=== PATIENT | female | born 1965 | race Caucasian/White ===

== ENCOUNTER → 2022-07-13 | Outpatient (CLI) | payer OTHER ==
--- NOTE | 2022-07-15 19:23 | US ---
EXAMINATION TYPE: US arterial LE single level DATE OF EXAM: 07/13/2022 10:20 AM CLINICAL HISTORY: R09.89 Other specific symptoms and signs involving the circulatory. History of hype rtension and hyperlipidemia and diabetes. Doppler Waveforms: Right: Biphasic Left: Biphasic Pulse Volume Recording: Pressure Gradients: Right Brachial Pressure: Left Brachial Pressure: Ankle-Brachial Indices: Right: 1.26 Left: 1.23 Toe Brachial Indices: Right: 0.77 Left: 0.84 IMPRESSION: Normal study.
== END | disposition home or self-care (01) ==
LOC: RADMAMWWP 09:01
PROVIDERS: ATTEND Internal Medicine
DX: R92.8 Other abnormal and inconclusive findings on diagnostic imaging of breast (principal); I10 Essential (primary) hypertension; E78.5 Hyperlipidemia, unspecified; E11.9 Type 2 diabetes mellitus without complications; R09.89 Other specified symptoms and signs involving the circulatory and respiratory systems
CPT/HCPCS: 77066; 93922

== ENCOUNTER → 2022-08-02 | Outpatient (CLI) | payer OTHER ==
--- NOTE | 2022-08-02 10:23 | MM ---
Reason for Exam: Additional evaluation requested from prior study. Last screening mammogram was performed less than 1 month ago. Patient History: Menarche at age 12. First Full-Term at age 15. Left ovary removed at age 41. Right ovary removed at age 41. Hysterectomy at age 41. Risk Values: Sahara 5 year model risk: 1.0%. NCI Lifetime model risk: 5.6%. Prior Study Comparison: 09/19/2019 Left Diagnostic Mammogram, [facility]. 04/09/2021 Left Diagnostic Mammogram, [facility]. 07/13/2022 Bilateral MG diagnostic mammo w CAD MIGUEL, [facility]. Tissue Density: Left: The breast tissue is heterogeneously dense. This may lower the sensitivity of mammography. Findings: Analyzed By CAD. No distinct new lesion persists on additional views. Overall Assessment: Benign, BI-RAD 2 Management: Screening Mammogram of both breasts in 1 year. Return to routine follow-up. Results were given to the patient verbally at the time of exam. Electronically signed and approved by: Harjit Holm M.D.
== END | disposition home or self-care (01) ==
LOC: RADMAMWWP 09:42
PROVIDERS: ATTEND Internal Medicine
DX: R92.8 Other abnormal and inconclusive findings on diagnostic imaging of breast (principal)
CPT/HCPCS: 77065; G0279; 77061

== ENCOUNTER → 2022-09-24 | Outpatient (CLI) | payer OTHER ==
[2022-09-25 05:26] LABS: Appearance,Urine Turbid (Clear); Bilirubin,Urine Negative (Negative); Blood,Urine Negative (Negative); Color,Urine Yellow (Yellow); Ketones,Urine Negative (Negative); Nitrite,Urine Negative (Negative); Specific Gravity,Urine 1.019 (1.001-1.030); Urobilinogen,Urine 0.2
[2022-09-25 05:29] LABS: Bacteria,Urine 4+ (None Seen)
== END | disposition home or self-care (01) ==
LOC: LABWHC1 10:05
PROVIDERS: ATTEND Internal Medicine
DX: R19.5 Other fecal abnormalities (principal); R30.0 Dysuria
CPT/HCPCS: 81001; 87086

== ENCOUNTER 2022-11-27 21:10 | Emergency (ER) | payer MEDICARE, OTHER ==
[2022-11-27 21:20] VITALS: RESP 18
[2022-11-27 22:18] LABS: Basophils % (A) 0 %; Eosinophils # (A) 0.3 k/uL (0-0.7); Eosinophils % (A) 2 %; HCT 37.3 % (34.0-46.0); HGB 13.2 gm/dL (11.4-16.0); Lymphocytes # (A) 2.8 k/uL (1.0-4.8); Lymphocytes % (A) 27 %; MCH 30.9 pg (25.0-35.0); MCHC 35.3 g/dL (31.0-37.0); MCV 87.4 fL (80.0-100.0); Mean Platelet Volume 7.2; Monocytes # (A) 0.5 k/uL (0-1.0); Monocytes % (A) 5 %; Neutrophils # (A) 6.9 k/uL (1.3-7.7); Neutrophils % (A) 65 %; Platelet Count 244 k/uL (150-450); RBC 4.27 m/uL (3.80-5.40); WBC 10.6 k/uL (3.8-10.6)
[2022-11-27 22:29] LABS: ALT 24 U/L (4-34); AST 22 U/L (14-36); African American GFR (CKD) 62 (>60 ml/min/1.73 sqM); Albumin 2.9 g/dL (3.5-5.0); Alkaline Phosphatase 93 U/L (38-126); Anion Gap 7 mmol/L; Blood Urea Nitrogen 36 mg/dL (7-17); Calcium 8.6 mg/dL (8.4-10.2); Carbon Dioxide 25 mmol/L (22-30); Chloride 107 mmol/L (98-107); Glucose 221 mg/dL (74-99); Lipase 235 U/L (23-300); Non-African American GFR(CKD) 54 (>60 ml/min/1.73 sqM); Potassium 3.5 mmol/L (3.5-5.1); Sodium 139 mmol/L (137-145); Total Bilirubin 0.2 mg/dL (0.2-1.3)
[2022-11-27 22:35] LABS: INR 0.9 (<1.2); Prothrombin Time 9.3 sec (9.0-12.0)
[2022-11-27 22:40] LABS: Partial Thromboplastin Time 21.8 sec (22.0-30.0)
--- NOTE | 2022-11-27 23:14 | CT ---
EXAMINATION TYPE: CT abdomen pelvis w con CT DLP: 1008 mGycm, Automated exposure control for dose reduction was used. DATE OF EXAM: 11/27/2022 11:04 PM COMPARISON: none CLINICAL INDICATION:Female, 57 years old with history of GI bleed, RLQ pain; TECHNIQUE: Axial CT of the abdomen and pelvis. Sagittal and coronal reformats were created on a [employer] workstation. Contrast used: 80 cc Isovue-300 Oral contrast used: (none if empty) FINDINGS: LOWER CHEST: Left lower lung partially calcified granuloma measuring up to 10 mm. ABDOMEN LIVER: Diffusely hypoattenuating parenchyma. GALLBLADDER AND BILE DUCTS: The gallbladder is surgically absent. PANCREAS: Unremarkable. SPLEEN: Unremarkable. ADRENAL GLANDS: Unremarkable. KIDNEYS AND URETERS: No evidence of hydronephrosis or renal calculus. The ureters are unremarkable. PELVIS BLADDER: Unremarkable REPRODUCTIVE: The uterus is surgically absent. ABDOMEN & PELVIS STOMACH AND BOWEL: No evidence of bowel obstruction. No evidence for gastrointestinal hemorrhage. Mil d subcutaneous mucosal fat deposition within the singh of the colon. Scattered colonic diverticula. T he appendix is normal. Second portion duodenal diverticulum. PERITONEUM/RETROPERITONEUM: No evidence of pneumoperitoneum or free fluid. There is a nonspecific mis ty mesentery. VASCULATURE: No evidence of aortic aneurysm. MUSCULOSKELETAL: No acute osseous abnormalities, left hip fixation changes. Hardware appears intact. There is a Schmorl's node in the superior endplate of L3. No other significant normally within these spine. There is mild degeneration changes of the spine. LYMPH NODES: No gross evidence for lymphadenopathy. SOFT TISSUE/ABDOMINAL WALL: Unremarkable IMPRESSION: 1. No evidence for gastrointestinal hemorrhage . 2. No evidence for obstructive uropathy. No renal calculus. 3. The appendix is normal. 4. Hepatic steatosis. 5. Left lower lobe calcified granuloma.
--- NOTE | 2022-11-28 00:24 | ED ---
General Adult HPI - General Chief complaint: GI Bleed Stated complaint: Blood in stools Time Seen by Provider: 11/27/22 21:21 Source: patient Mode of arrival: ambulatory Limitations: no limitations - History of Present Illness Initial comments: This is a 57-year-old female with a past medical history including diabetes, hypertension presents emergency department for GI bleed. The patient stated over the last 2 days she had noted brown to bright red blood in the toilet bowl every time she has a bowel movement. The patient also stated that she had righ t-sided abdominal pain and "gurgling" all day. The patient stated that the last and is happened she had a hemorrhoid but stated that the pain was more severe so she came to the emergency department for evaluation. The patient denied any lightheadedness or dizziness. The patient was otherwise resting in bed comfortably. - Related Data Home Medications Medication Instructions Recorded Confirmed Cetirizine HCl 10 mg PO DAILY 11/27/22 11/27/22 DULoxetine HCL [Cymbalta] 60 mg PO DAILY 11/27/22 11/27/22 Denosumab [Prolia] 60 mg SQ Q180D 11/27/22 11/27/22 Ergocalciferol [Vitamin D2 (1250 1,250 mcg PO WE 11/27/22 11/27/22 Mcg = 44491 Iu)] Famotidine [Pepcid] 20 mg PO DAILY 11/27/22 11/27/22 Fluticasone Nasal [place] [Flonase 2 spr EA NOSTRIL BID 11/27/22 11/27/22 Nasal [place]] Furosemide [Lasix] 40 mg PO DAILY 11/27/22 11/27/22 Insulin Aspart [NovoLOG Flexpen] 45 units SQ AC-TID 11/27/22 11/27/22 Insulin Aspart [NovoLOG Flexpen] See Protocol SQ AC-TID 11/27/22 11/27/22 Insulin Detemir [Levemir Flextouch] 34 unit SQ HS 11/27/22 11/27/22 Mirabegron [Myrbetriq] 25 mg PO DAILY 11/27/22 11/27/22 Mometasone/Formoterol [Dulera 200 2 puff INHALATION RT-BID 11/27/22 11/27/22 Mcg-5 Mcg Inhaler] Omeprazole Magnesium [PriLOSEC OTC] 20 mg PO DAILY 11/27/22 11/27/22 Potassium Chloride ER [K-Dur 20] 20 meq PO DAILY 11/27/22 11/27/22 Rosuvastatin Calcium 5 mg PO DAILY 11/27/22 11/27/22 glipiZIDE 5 mg PO BID 11/27/22 11/27/22 lisinopriL [Zestril] 5 mg PO DAILY 11/27/22 11/27/22 metFORMIN HCL 1,000 mg PO BID 11/27/22 11/27/22 traZODone HCL [Desyrel] 50 mg PO HS 11/27/22 11/27/22 Allergies Allergy/AdvReac Type Severity Reaction Status Date / Time coconut Allergy Swelling Verified 11/27/22 22:19 fish oil Allergy Anaphylaxis Verified 11/27/22 22:19 iodine Allergy Anaphylaxis Verified 11/27/22 22:19 lavender (Lavandula Allergy Dyspnea Verified 11/27/22 22:19 angustifolia) Review of Systems ROS Statement: Those systems with pertinent positive or pertinent negative responses have been documented in the HPI. ROS Other: All systems not noted in ROS Statement are negative. Past Medical History Past Medical History: Asthma, COPD, Diabetes Mellitus, Hypertension, Renal Disease History of Any Multi-Drug Resistant Organisms: None Reported Past Surgical History: Section, Cholecystectomy, Hysterectomy Past Psychological History: No Psychological Hx Reported Smoking Status: Never smoker Past Alcohol Use History: None Reported Past Drug Use History: None Reported General Exam Limitations: no limitations General appearance: alert, in no apparent distress Head exam: Present: atraumatic, normocephalic, normal inspection Eye exam: Present: normal appearance, PERRL Pupils: Present: normal accommodation ENT exam: Present: normal exam, normal oropharynx, mucous membranes moist Neck exam: Present: normal inspection, full ROM Respiratory exam: Present: normal lung sounds bilaterally. Absent: respiratory distress, wheezes Cardiovascular Exam: Present: regular rate, normal rhythm, normal heart sounds GI/Abdominal exam: Present: soft, normal bowel sounds. Absent: tenderness Rectal exam: Present: normal rectal tone, heme (+) stool, hemorrhoids, other (Exam was performed with RAISA Weber as millinery salesperson) Extremities exam: Present: normal inspection, full ROM Back exam: Present: normal inspection, full ROM Neurological exam: Present: alert, oriented X3, CN II-XII intact Psychiatric exam: Present: normal affect, normal mood Skin exam: Present: warm, dry Course Vital Signs 11/27/22 11/28/22 21:14 00:36 Temperature 98.7 F 98.6 F Pulse Rate 112 H 91 Respiratory 18 18 Rate Blood Pressure 169/94 151/93 O2 Sat by Pulse 98 97 Oximetry Medical Decision Making - Medical Decision Making Was pt. sent in by a medical professional or institution (, STEF, HIGH VALUE ASSOCIATE, urgent care, hospital, or senior care...) When possible be specific @ -No Did you speak to anyone other than the patient for history (EMS, parent, family, police, friend...)? What history was obtained from this source @ -No Did you review nursing and triage notes (agree or disagree)? Why? @ -I reviewed and agree with nursing and triage notes Were old charts reviewed (outside hosp., previous admission, EMS record, old EKG, old radiological studies, urgent care reports/EKG's, senior care records)? Report findings @ -No old charts were reviewed Differential Diagnosis (chest pain, altered mental status, abdominal pain women, abdominal pain men, vaginal bleeding, weakness, fever, dyspnea, syncope, headache, dizziness, GI bleed, back pain, seizure, CVA, palpatations, mental health)? @ -GI bleed, internal hemorrhoids, external hemorrhoids, gastroenteritis EKG interpreted by me (3pts min.). @ -None X-rays interpreted by me (1pt min.). @ -None done CT interpreted by me (1pt min.). @ -CT abdomen and pelvis with IV contrast was obtained and was interpreted by myself showing no evidence for GI hemorrhage. There was no evidence for obstructive uropathy. The appendix is normal. There was left lower lobe calcified granuloma. U/S interpreted by me (1pt. min.). @ -None done What testing was considered but not performed or refused? (CT, X-rays, U/S, labs)? Why? @ -None What meds were considered but not given or refused? Why? @ -None Did you discuss the management of the patient with other professionals (professionals i.e. STEF Dowell, HIGH VALUE ASSOCIATE, lab, RT, psych nurse, medical social worker, tile layer supervisor, teacher, prison officer, casework manager)? Give summary @ -No Was smoking cessation discussed for >3mins.? @ -No Was critical care preformed (if so, how long)? @ -No Were there social determinants of health that impacted care today? How? (Homelessness, low income, unemployed, alcoholism, drug addiction, transportation, low edu. Level, literacy, decrease access to med. care, long term, rehab)? @ -No Was there de-escalation of care discussed even if they declined (Discuss DNR or withdrawal of care, Hospice)? DNR status @ -No What co-morbidities impacted this encounter? (DM, HTN, Smoking, COPD, CAD, Cancer, CVA, ARF, Chemo, Hep., AIDS, mental health diagnosis, sleep apnea, morbid obesity)? @ -Diabetes, hypertension Was patient admitted / discharged? Hospital course, mention meds given and route, prescriptions, significant lab abnormalities, going to OR and other pertinent info. @ -The patient was seen and evaluated emergency department. Physical exam, the patient was resting in bed comfortably without any acute distress. Vital signs admission were stable. All laboratory workup was within normal limits and the patient had normal hemoglobin. Computed tomography scan was also negative and occult blood was positive. On rectal exam there was a hemorrhoid noted at the 12 o'clock position. The patient continued to remain stable and likely had a stable lower GI bleed likely secondary to hemorrhoid. The patient was stable for discharge home to follow-up as an outpatient. The patient was advised report back to the emergency Department in case of worsening rectal bleeding as well as any lightheadedness or dizziness. The patient was understanding of these instructions and all her questions were answered. The patient was discharged home in stable condition. Undiagnosed new problem with uncertain prognosis? @ -No Drug Therapy requiring intensive monitoring for toxicity (Heparin, Nitro, Insulin, Cardizem)? @ -No Were any procedures done? @ -No Diagnosis/symptom? @ -Lower GI bleed, stable likely secondary to hemorrhoid Acute, or Chronic, or Acute on Chronic? @ -Acute Uncomplicated (without systemic symptoms) or Complicated (systemic symptoms)? @ -Uncomplicated Side effects of treatment? @ -No Exacerbation, Progression, or Severe Exacerbation? @ -No Poses a threat to life or bodily function? How? (Chest pain, [place], HI, pneumonia, PE, COPD, DKA, ARF, appy, cholecystitis, CVA, Diverticulitis, Homicidal, Suicidal, threat to staff... and all critical care pts) @ -No - Lab Data Result diagrams: 11/27/22 22:02 11/27/22 22:02 Lab Results 11/27/22 11/27/22 11/27/22 Range/Units 22:02 22:02 22:02 WBC 10.6 (3.8-10.6) k/uL RBC 4.27 (3.80-5.40) m/uL Hgb 13.2 (11.4-16.0) gm/dL Hct 37.3 (34.0-46.0) % MCV 87.4 (80.0-100.0) fL MCH 30.9 (25.0-35.0) pg MCHC 35.3 (31.0-37.0) g/dL RDW 13.0 (11.5-15.5) % Plt Count 244 (150-450) k/uL MPV 7.2 Neutrophils % 65 % Lymphocytes % 27 % Monocytes % 5 % Eosinophils % 2 % Basophils % 0 % Neutrophils # 6.9 (1.3-7.7) k/uL Lymphocytes # 2.8 (1.0-4.8) k/uL Monocytes # 0.5 (0-1.0) k/uL Eosinophils # 0.3 (0-0.7) k/uL Basophils # 0.0 (0-0.2) k/uL PT 9.3 (9.0-12.0) sec INR 0.9 (<1.2) APTT 21.8 L (22.0-30.0) sec Sodium 139 (137-145) mmol/L Potassium 3.5 (3.5-5.1) mmol/L Chloride 107 (98-107) mmol/L Carbon Dioxide 25 (22-30) mmol/L Anion Gap 7 mmol/L BUN 36 H (7-17) mg/dL Creatinine 1.13 H (0.52-1.04) mg/dL Est GFR (CKD-EPI)AfAm 62 (>60 ml/min/1.73 sqM) Est GFR (CKD-EPI)NonAf 54 (>60 ml/min/1.73 sqM) Glucose 221 H (74-99) mg/dL Calcium 8.6 (8.4-10.2) mg/dL Magnesium 2.0 (1.6-2.3) mg/dL Total Bilirubin 0.2 (0.2-1.3) mg/dL AST 22 (14-36) U/L ALT 24 (4-34) U/L Alkaline Phosphatase 93 (38-126) U/L Total Protein 6.0 L (6.3-8.2) g/dL Albumin 2.9 L (3.5-5.0) g/dL Lipase 235 (23-300) U/L Stool Occult Blood (Negative) Blood Type Blood Type Confirm Blood Type Recheck Bld Type Recheck Status Antibody Screen Spec Expiration Date 11/27/22 11/27/22 11/27/22 Range/Units 22:02 22:07 22:43 WBC (3.8-10.6) k/uL RBC (3.80-5.40) m/uL Hgb (11.4-16.0) gm/dL Hct (34.0-46.0) % MCV (80.0-100.0) fL MCH (25.0-35.0) pg MCHC (31.0-37.0) g/dL RDW (11.5-15.5) % Plt Count (150-450) k/uL MPV Neutrophils % % Lymphocytes % % Monocytes % % Eosinophils % % Basophils % % Neutrophils # (1.3-7.7) k/uL Lymphocytes # (1.0-4.8) k/uL Monocytes # (0-1.0) k/uL Eosinophils # (0-0.7) k/uL Basophils # (0-0.2) k/uL PT (9.0-12.0) sec INR (<1.2) APTT (22.0-30.0) sec Sodium (137-145) mmol/L Potassium (3.5-5.1) mmol/L Chloride (98-107) mmol/L Carbon Dioxide (22-30) mmol/L Anion Gap mmol/L BUN (7-17) mg/dL Creatinine (0.52-1.04) mg/dL Est GFR (CKD-EPI)AfAm (>60 ml/min/1.73 sqM) Est GFR (CKD-EPI)NonAf (>60 ml/min/1.73 sqM) Glucose (74-99) mg/dL Calcium (8.4-10.2) mg/dL Magnesium (1.6-2.3) mg/dL Total Bilirubin (0.2-1.3) mg/dL AST (14-36) U/L ALT (4-34) U/L Alkaline Phosphatase (38-126) U/L Total Protein (6.3-8.2) g/dL Albumin (3.5-5.0) g/dL Lipase (23-300) U/L Stool Occult Blood Positive H (Negative) Blood Type A Positive Blood Type Confirm A Positive Blood Type Recheck No Previous Record Bld Type Recheck Status CABO Indicated Antibody Screen NEGATIVE Spec Expiration Date 11/30/20222301 Disposition Clinical Impression: GI bleed Disposition: HOME SELF-CARE Condition: Stable Instructions (If sedation given, give patient instructions): Gastrointestinal Bleeding (ED) Is patient prescribed a controlled substance at d/c from ED?: No Referrals: Vernon Loza MD [Primary Care Provider] - 1-2 days Madisyn Yanes MD [STAFF PHYSICIAN] - 1-2 days Time of Disposition: 23:50
[2022-11-28 00:45] VITALS: BP 151/93; PULSE 91; TEMP 98.6
== END 2022-11-28 00:36 | disposition home or self-care (01) ==
LOC: EC 21:10
DX: K92.2 Gastrointestinal hemorrhage, unspecified (principal); E11.9 Type 2 diabetes mellitus without complications; I10 Essential (primary) hypertension; J44.9 Chronic obstructive pulmonary disease, unspecified; Z90.49 Acquired absence of other specified parts of digestive tract; Z79.4 Long term (current) use of insulin; Z79.84 Long term (current) use of oral hypoglycemic drugs; Z79.51 Long term (current) use of inhaled steroids; Z79.899 Other long term (current) drug therapy; Z91.018 Allergy to other foods; Z91.013 Allergy to seafood; Z91.041 Radiographic dye allergy status; Z91.048 Other nonmedicinal substance allergy status
CPT/HCPCS: 36415; 86900; 86901; 80053; 83690; 83735; 85025; 85610; 85730; 86850; 82272; 74177; 99285; Q9967

== ENCOUNTER → 2022-12-20 | Outpatient (CLI) | payer MEDICARE, OTHER ==
[2022-12-20 13:39] LABS: African American GFR (CKD) 51 (>60 ml/min/1.73 sqM); Blood Urea Nitrogen 40 mg/dL (7-17); Non-African American GFR(CKD) 44 (>60 ml/min/1.73 sqM)
--- NOTE | 2022-12-21 00:05 | CT ---
EXAMINATION TYPE: CT urogram wo/w con DATE OF EXAM: 12/20/2022 COMPARISON: 11/27/2022 INDICATION: hematuria DLP: 1618.5 mGycm, Automated exposure control for dose reduction was used. CONTRAST: 80cc mL of Isovue 300. Study performed without Oral Contrast TECHNIQUE: Axial images were obtained from above the diaphragm to the pubic rami in the axial plane a t 5 mm thick sections. Reconstructed images are reviewed on the computer in the coronal plane. FINDINGS: Limited CT sections are obtained the lung bases. There is a stable calcification posterior left lung base. Lung bases are clear. CT ABDOMEN: Liver: Normal Spleen: Normal Pancreas: Normal Adrenal glands: The adrenal glands are normal. Gallbladder: Surgically absent Kidneys: No masses are evident. No hydronephrosis is present. No cysts are present. Delayed images were obtained through the kidneys, which remain unremarkable. In the coronal plane with some punctat e cortical medullary junction calcifications without obstruction. Couple of upper pole nonobstructing cortical medullary junctions may be present. CT urogram: Left ureter has mild prominence. Lesser prominence of the right distal ureter is present. Hydronephrosis is not felt present. Limited evaluation of the urinary bladder is unremarkable. Aorta: Normal Inferior vena cava: Normal. CT PELVIS: There may be some mid mesenteric stranding. Scattered small lymph nodes in the mesentery. Loops of bowel within the abdomen and pelvis are normal. This study is without oral contrast limi ting bowel evaluation. Appendix: Normal as visualized. Urinary bladder: Normal. Genitourinary structures: Uterus and ovaries are not identified. Osseous structures: No suspicious lytic or sclerotic lesions. IMPRESSION: 1. No suspicious acute abnormality renal collecting system. There is some mild nonspecific prominenc e of the left ureter. 2. Suspected punctate nonobstructing renal stones bilaterally greater on the right. Consider medullar y sponge kidney within the differential.
== END | disposition home or self-care (01) ==
LOC: RADCTMAIN 12:54
PROVIDERS: ATTEND Urology
DX: R31.0 Gross hematuria (principal); N28.89 Other specified disorders of kidney and ureter
CPT/HCPCS: 82565; 84520; 74178; 36415; 74400; Q9967

== ENCOUNTER 2023-02-23 10:07 | Day surgery (SDC) | payer MEDICARE, OTHER ==
[2023-02-21 16:02] VITALS: BMI 28.2
[~2023-02-23 10:07] MED LIST: LACTATED RINGERS 1,000 ML IV SCH
[2023-02-23 10:37] VITALS: TEMP 96.9
[2023-02-23 10:45] LABS: Glucose,Whole Blood 104 mg/dL (70-110)
[2023-02-23] MEDS ORDERED: LIDOCAINE 1% INJ 10MG/ML (20 ML MDV) ONE (11:00)
[2023-02-23] MEDS ORDERED: PROPOFOL 10 MG/ML 20 ML VIAL IV ONE (11:00)
--- NOTE | 2023-02-23 11:11 | P.PCN ---
Date of Procedure: 02/23/23 Procedure(s) Performed: BRIEF HISTORY: Patient is a 57-year-old pleasant white female scheduled for an elective colonoscopy as a part of evaluation of intermittent rectal bleeding for the last 2 months duration. PROCEDURE PERFORMED: Colonoscopy. PREOPERATIVE DIAGNOSIS: Rectal bleeding of 2 months duration. IV sedation per Anesthesia. PROCEDURE: After informed consent was obtained, the patient, was brought into the endoscopy unit. IV sedation was administered by Anesthesia under continuous monitoring. Digital rectal examination was normal. Initially the Olympus CF-160 flexible video colonoscope was then inserted in the rectum, gradually advanced into the cecum without any difficulty. Careful examination was performed as the scope was gradually being withdrawn. Ileocecal valve and the appendiceal orifice were visualized and appeared normal. Prep was excellent. Mucosa of the cecum, ascending colon, transverse colon, descending colon, sigmoid colon, and rectum appeared normal. Retroflexion was performed in the rectum and large internal hemorrhoids were seen. The patient tolerated the procedure well. IMPRESSION: Normal-appearing colon from rectum to cecum with no evidence of colorectal neoplasia . Large internal hemorrhoids RECOMMENDATIONS: Findings of this examination were discussed with the patient as well as a family.. She was advised to be a high-fiber diet and take fiber supplements on a regular basis. Avoid straining and constipation. Recommend repeat screening colonoscopy in 10 years.
[2023-02-23 11:29] VITALS: BP 141/88
[2023-02-23 11:56] VITALS: PULSE 88; RESP 14
== END 2023-02-23 11:46 | disposition home or self-care (01) ==
LOC: ORWHC2ENDO 10:07
PROVIDERS: ATTEND Internal Medicine Gastroenterology
DX: K64.8 Other hemorrhoids (principal); K62.5 Hemorrhage of anus and rectum; I10 Essential (primary) hypertension; J44.9 Chronic obstructive pulmonary disease, unspecified; E11.9 Type 2 diabetes mellitus without complications; N28.9 Disorder of kidney and ureter, unspecified; Z79.811 Long term (current) use of aromatase inhibitors; Z79.4 Long term (current) use of insulin; Z79.84 Long term (current) use of oral hypoglycemic drugs; Z79.899 Other long term (current) drug therapy; Z90.49 Acquired absence of other specified parts of digestive tract; Z90.710 Acquired absence of both cervix and uterus; Z98.890 Other specified postprocedural states
CPT/HCPCS: J2001; J2704; G0121; 45378

== ENCOUNTER → 2023-03-15 | Outpatient (CLI) | payer MEDICARE, OTHER ==
--- NOTE | 2023-03-15 18:39 | BD ---
EXAMINATION TYPE: Axial Bone Density DATE OF EXAM: 03/15/2023 CLINICAL HISTORY: 57 years old Female. ICD-10 CODE: M81.0 age related osteoporosis Height: 5 ft 3 in Weight: 152 FRAX RISK QUESTIONS: Alcohol (3 or more units per day): no Family History (Parent hip fracture): no Glucocorticoids (More than 3mos): no (Ex: prednisone, prednisolone, methylprednisolone, dexamethasone, and hydrocortisone). History of Fracture in Adulthood: yes Secondary Osteoporosis: 1. Type 1 Diabetes: type 2 2. Hyperthyroidism: no 3. Menopause before 45: no 4. Malnutrition: no 5. Chronic liver disease: no Rheumatoid Arthritis: no Current Tobacco Use: no RISK FACTORS HISTORY OF: Surgery to Spine/Hip(right/left)/Wrist (right/left): left hip When: 2019 Family History of Osteoporosis: no Active: yes Diet low in dairy products/other sources of calcium: no Postmenopausal woman: yes Take estrogen and/or progesterone medications: no Lost more than 2 inches in height since high school: no Frequent falls: no Poor Health: fair Hyperparathyroidism: no Adrenal Insufficiency: no MEDICATIONS: Additional Medications: bladder meds, metformin, glipizide, insulin, Lipitor, Additional History: EXAM MEASUREMENTS: Bone mineral densitometry was performed using the [employer] System. Bone mineral density as measured about the Lumbar spine is: ----- L1-L4(G/cm2): 1.288 T Score Values are as follows: ----- L1: 0.9 ----- L2: 0.8 ----- L3: 1.1 ----- L4: 0.8 ----- L1-L4: 0.9 Z Score Values are as follows: ----- L1: 1.8 ----- L2: 1.7 ----- L3: 2.0 ----- L4: 1.7 ----- L1-L4: 1.9 baseline Bone mineral density about the R hip (g/cm2): 0.697 T Score values are as follows: -----R Neck: -2.5 -----R Total: -1.4 Z Score values are as follows: -----R Neck: -1.4 -----R Total: -0.7 baseline FRAX%s: The graph provided illustrates a 18.6 % chance for a major osteoporotic fx and a 3.6 % chance for the hips probability for fx in 10 years time. IMPRESSION: Osteoporosis (T Score less than -2.5). There is increased fracture risk and therapy is usually indicated based on age. Re-Screen 1-2 years. NOTE: T-SCORE=SD OF THE YOUNG ADULT MEAN.
== END | disposition home or self-care (01) ==
LOC: RADBDWWP 12:09
PROVIDERS: ATTEND Internal Medicine
DX: M81.0 Age-related osteoporosis without current pathological fracture (principal)
CPT/HCPCS: 77080

== ENCOUNTER 2023-11-04 06:28 | Emergency (ER) | payer OTHER ==
[2023-11-04 06:35] VITALS: TEMP 97.9
--- NOTE | 2023-11-04 06:55 | ED ---
Female Urogenital HPI - General Chief complaint: Urogenital Stated complaint: Urinary Retention Time Seen by Provider: 11/04/23 06:29 Source: patient, RN notes reviewed Mode of arrival: EMS Limitations: no limitations - History of Present Illness Initial comments: This is a 58-year-old female who presents to the emergency department for concerns of a UTI. States that starting yesterday she felt like she was developing fevers, lower abdominal pain/pressure and burning with urination. Symptoms have since persisted into today. She is now starting to feel nauseous and states that she was unable to sleep last night. Reports a history of frequent UTIs, most recently a couple of months ago. She has been having trouble urinating as a result and states that she has not been able to go in about 5 hours. However, after arriving here she was able to produce some urine. MD Complaint: dysuria - Related Data Home Medications Medication Instructions Recorded Confirmed Cetirizine HCl 10 mg PO DAILY 11/27/22 02/21/23 DULoxetine HCL [Cymbalta] 60 mg PO DAILY 11/27/22 02/21/23 Ergocalciferol [Vitamin D2 (1250 1,250 mcg PO WE 11/27/22 02/21/23 Mcg = 77214 Iu)] Fluticasone Nasal [place] [Flonase 2 spr EA NOSTRIL BID 11/27/22 02/21/23 Nasal [place]] Furosemide [Lasix] 40 mg PO DIRECTED PRN 11/27/22 02/21/23 Insulin Aspart [NovoLOG Flexpen] 45 units SQ AC-TID 11/27/22 02/21/23 Insulin Detemir [Levemir Flextouch] 34 unit SQ HS 11/27/22 02/21/23 Mirabegron [Myrbetriq] 25 mg PO DAILY 11/27/22 02/21/23 Mometasone/Formoterol [Dulera 200 2 puff INHALATION RT-BID 11/27/22 02/21/23 Mcg-5 Mcg Inhaler] Omeprazole Magnesium [PriLOSEC OTC] 20 mg PO DAILY 11/27/22 02/21/23 Rosuvastatin Calcium 5 mg PO DAILY 11/27/22 02/21/23 glipiZIDE 5 mg PO BID 11/27/22 02/21/23 lisinopriL [Zestril] 5 mg PO DAILY 11/27/22 02/21/23 metFORMIN HCL 1,000 mg PO BID 11/27/22 02/21/23 traZODone HCL [Desyrel] 50 mg PO HS 11/27/22 02/21/23 Previous Rx's Medication Instructions Recorded Ondansetron Odt [Zofran Odt] 4 mg PO Q8HR PRN #15 tab 11/04/23 cefUROXime axetiL [Ceftin] 500 mg PO BID 7 Days #14 tab 11/04/23 Allergies Allergy/AdvReac Type Severity Reaction Status Date / Time coconut Allergy Swelling Verified 11/04/23 06:35 fish oil Allergy Anaphylaxis Verified 11/04/23 06:35 iodine Allergy Anaphylaxis Verified 11/04/23 06:35 Latex, Natural Rubber Allergy Rash/Hives Verified 11/04/23 06:35 lavender (Lavandula Allergy Dyspnea Verified 11/04/23 06:35 angustifolia) Review of Systems ROS Statement: Those systems with pertinent positive or pertinent negative responses have been documented in the HPI. ROS Other: All systems not noted in ROS Statement are negative. Past Medical History Past Medical History: Atrial Fibrillation, Asthma, Cancer, COPD, Diabetes Melli tus, Hyperlipidemia, Hypertension, Osteoarthritis (OA), Renal Disease History of Any Multi-Drug Resistant Organisms: None Reported Past Surgical History: Section, Cholecystectomy, Hysterectomy Past Anesthesia/Blood Transfusion Reactions: No Reported Reaction Past Psychological History: No Psychological Hx Reported Smoking Status: Never smoker Past Alcohol Use History: None Reported Past Drug Use History: None Reported General Exam Limitations: no limitations General appearance: alert, in no apparent distress Head exam: Present: atraumatic, normocephalic, normal inspection Respiratory exam: Present: normal lung sounds bilaterally. Absent: respiratory distress, wheezes, rales, rhonchi, stridor Cardiovascular Exam: Present: regular rate, normal rhythm, normal heart sounds. Absent: systolic murmur, diastolic murmur, rubs, gallop, clicks GI/Abdominal exam: Present: soft, tenderness (Suprapubic), normal bowel sounds. Absent: distended Neurological exam: Present: alert, oriented X3, CN II-XII intact Psychiatric exam: Present: normal affect, normal mood Skin exam: Present: warm, dry, intact, normal color. Absent: rash Course Vital Signs 11/04/23 11/04/23 06:31 09:02 Temperature 97.9 F Pulse Rate 93 82 Respiratory 16 17 Rate Blood Pressure 182/98 152/99 O2 Sat by Pulse 97 97 Oximetry Medical Decision Making - Medical Decision Making This is a 58 year old female who presents to the emergency department for burning with urination and urinary retention. Was pt. sent in by a medical professional or institution? @ -No Did you speak to anyone other than the patient for history? @ -No Did you review nursing and triage notes? @ -Yes, and I agree, it is accurate with regards to the patient's symptoms. Were old charts reviewed? @ -No Differential Diagnosis? @ -Differential Dysuria: UTI, injury, STI, yeast infection, BV, this is not meant to be an all-inclusive list. EKG interpreted by me (3pts min.)? @ -EKG interpreted by me demonstrating the following: X-rays interpreted by me (1pt min.)? @ -Not obtained CT interpreted by me (1pt min.)? @ -Not obtained U/S interpreted by me (1pt. min.)? @ -Not obtained What testing was considered but not performed? (CT, X-rays, U/S, labs)? Why? @ -None What meds were considered but not given? Why? @ -None Did you discuss the management of the patient with other professionals? @ -No Did you reconcile home meds? @ -No Was smoking cessation discussed for >3mins.? @ -No Was critical care preformed (if so, how long)? @ -No Were there social determinants of health that impacted care today? How? (Homelessness, low income, unemployed, alcoholism, drug addiction, transportation, low edu. Level, literacy, decrease access to med. care, intermediate, rehab)? @ -No Was there de-escalation of care discussed even if they declined? (Discuss DNR or withdrawal of care, Hospice)? @ -No What co-morbidities impacted this encounter? (DM, HTN, Smoking, COPD, CAD, Cancer, CVA, Hep., AIDS, mental health diagnosis, sleep apnea, morbid obesity)? @ -DM, renal disease Was patient admitted / discharged? @ -Discharged. Patient was concerned about urinary retention on arrival. Bladder scan performed demonstrating 150 mL of urine. However after that she was able to urinate without difficulty. Lab work demonstrates signs of dehydration and was otherwise unremarkable. Urinalysis consistent with infection. Urine sent for culture. Patient treated with IV fluids, Zofran, and morphine with improvement in symptoms. 1 g of ceftriaxone administered in the emergency department. Prescription for cefuroxime and Zofran provided for further management of the UTI. Advised follow-up with her primary care provider for reevaluation. Case discussed with ED attending Dr. Wick. Undiagnosed new problem with uncertain prognosis? @ -None Drug Therapy requiring intensive monitoring for toxicity (Heparin, Nitro, Insulin, Cardizem)? @ -None Were any procedures done? @ -None Diagnosis/symptom? @ -UTI Acute, or Chronic, or Acute on Chronic? @ -Acute Uncomplicated (without systemic symptoms) or Complicated (systemic symptoms)? @ -Uncomplicated Side effects of treatment? @ -None Exacerbation, Progression, or Severe Exacerbation] @ -Not applicable Poses a threat to life or bodily function? @ -No Return precautions reviewed in depth, the patient is instructed to return to the emergency department with any new, worsening, or concerning symptoms. Patient verbalized understanding. - Lab Data Result diagrams: 11/04/23 07:02 11/04/23 07:02 Lab Results 11/04/23 11/04/23 11/04/23 Range/Units 06:57 07:02 07:02 WBC 9.9 (3.8-10.6) k/uL RBC 4.15 (3.80-5.40) m/uL Hgb 12.5 (11.4-16.0) gm/dL Hct 37.1 (34.0-46.0) % MCV 89.4 (80.0-100.0) fL MCH 30.1 (25.0-35.0) pg MCHC 33.7 (31.0-37.0) g/dL RDW 13.3 (11.5-15.5) % Plt Count 288 (150-450) k/uL MPV 7.0 Neutrophils % 66 % Lymphocytes % 21 % Monocytes % 6 % Eosinophils % 6 % Basophils % 0 % Neutrophils # 6.6 (1.3-7.7) k/uL Lymphocytes # 2.0 (1.0-4.8) k/uL Monocytes # 0.6 (0-1.0) k/uL Eosinophils # 0.6 (0-0.7) k/uL Basophils # 0.0 (0-0.2) k/uL Sodium 141 (137-145) mmol/L Potassium 4.3 (3.5-5.1) mmol/L Chloride 113 H (98-107) mmol/L Carbon Dioxide 25 (22-30) mmol/L Anion Gap 3 mmol/L BUN 47 H (7-17) mg/dL Creatinine 1.73 H (0.52-1.04) mg/dL Est GFR (CKD-EPI)AfAm 37 (>60 ml/min/1.73 sqM) Est GFR (CKD-EPI)NonAf 32 (>60 ml/min/1.73 sqM) Glucose 199 H (74-99) mg/dL Plasma Lactic Acid Vikash (0.7-2.0) mmol/L Calcium 8.6 (8.4-10.2) mg/dL Total Bilirubin 0.3 (0.2-1.3) mg/dL AST 19 (14-36) U/L ALT 16 (4-34) U/L Alkaline Phosphatase 88 (38-126) U/L Total Protein 5.6 L (6.3-8.2) g/dL Albumin 3.0 L (3.5-5.0) g/dL Urine Color Colorless Urine Appearance Cloudy H (Clear) Urine pH 6.5 (5.0-8.0) Ur Specific [place] 1.015 (1.001-1.035) Urine Protein 3+ H (Negative) Urine Glucose (UA) 2+ H (Negative) Urine Ketones Negative (Negative) Urine Blood Small H (Negative) Urine Nitrite Negative (Negative) Urine Bilirubin Negative (Negative) Urine Urobilinogen <2.0 (<2.0) mg/dL Ur Leukocyte Esterase Moderate H (Negative) Urine RBC 8 H (0-5) /hpf Urine WBC 72 H (0-5) /hpf Ur Squamous Epith Cells 4 (0-4) /hpf Urine Bacteria Many H (None) /hpf Urine Mucus Rare H (None) /hpf 11/04/23 Range/Units 07:02 WBC (3.8-10.6) k/uL RBC (3.80-5.40) m/uL Hgb (11.4-16.0) gm/dL Hct (34.0-46.0) % MCV (80.0-100.0) fL MCH (25.0-35.0) pg MCHC (31.0-37.0) g/dL RDW (11.5-15.5) % Plt Count (150-450) k/uL MPV Neutrophils % % Lymphocytes % % Monocytes % % Eosinophils % % Basophils % % Neutrophils # (1.3-7.7) k/uL Lymphocytes # (1.0-4.8) k/uL Monocytes # (0-1.0) k/uL Eosinophils # (0-0.7) k/uL Basophils # (0-0.2) k/uL Sodium (137-145) mmol/L Potassium (3.5-5.1) mmol/L Chloride (98-107) mmol/L Carbon Dioxide (22-30) mmol/L Anion Gap mmol/L BUN (7-17) mg/dL Creatinine (0.52-1.04) mg/dL Est GFR (CKD-EPI)AfAm (>60 ml/min/1.73 sqM) Est GFR (CKD-EPI)NonAf (>60 ml/min/1.73 sqM) Glucose (74-99) mg/dL Plasma Lactic Acid Vikash 1.2 (0.7-2.0) mmol/L Calcium (8.4-10.2) mg/dL Total Bilirubin (0.2-1.3) mg/dL AST (14-36) U/L ALT (4-34) U/L Alkaline Phosphatase (38-126) U/L Total Protein (6.3-8.2) g/dL Albumin (3.5-5.0) g/dL Urine Color Urine Appearance (Clear) Urine pH (5.0-8.0) Ur Specific [place] (1.001-1.035) Urine Protein (Negative) Urine Glucose (UA) (Negative) Urine Ketones (Negative) Urine Blood (Negative) Urine Nitrite (Negative) Urine Bilirubin (Negative) Urine Urobilinogen (<2.0) mg/dL Ur Leukocyte Esterase (Negative) Urine RBC (0-5) /hpf Urine WBC (0-5) /hpf Ur Squamous Epith Cells (0-4) /hpf Urine Bacteria (None) /hpf Urine Mucus (None) /hpf Disposition Clinical Impression: Urinary tract infection Disposition: HOME SELF-CARE Instructions (If sedation given, give patient instructions): Urinary Tract Infection in Women (ED) Additional Instructions: Return to the emergency department with any new, worsening, or concerning symptoms. Take the antibiotic as prescribed for 7 days. Take the Zofran up to every 8 hours as needed for nausea and vomiting. Take Tylenol as needed for pain relief. Make sure you get plenty of rest and drink plenty of fluids. Follow up with your primary care provider in 1-2 days. Prescriptions: cefUROXime axetiL [Ceftin] 500 mg PO BID 7 Days #14 tab Ondansetron Odt [Zofran Odt] 4 mg PO Q8HR PRN #15 tab PRN Reason: Nausea And Vomiting Is patient prescribed a controlled substance at d/c from ED?: No Referrals: Vernon Loza MD [Primary Care Provider] - 1-2 days Time of Disposition: 08:52
[2023-11-04 07:19] LABS: Basophils % (A) 0 %; Eosinophils # (A) 0.6 k/uL (0-0.7); Eosinophils % (A) 6 %; HCT 37.1 % (34.0-46.0); HGB 12.5 gm/dL (11.4-16.0); Lymphocytes % (A) 21 %; MCH 30.1 pg (25.0-35.0); MCHC 33.7 g/dL (31.0-37.0); MCV 89.4 fL (80.0-100.0); Monocytes # (A) 0.6 k/uL (0-1.0); Monocytes % (A) 6 %; Neutrophils # (A) 6.6 k/uL (1.3-7.7); Neutrophils % (A) 66 %; Platelet Count 288 k/uL (150-450); RBC 4.15 m/uL (3.80-5.40); RDW 13.3 % (11.5-15.5); WBC 9.9 k/uL (3.8-10.6)
[2023-11-04] MEDS: ONDANSETRON 4 MG/2 ML VIAL IVP STA (07:19)
[2023-11-04] MEDS: SODIUM CHLORIDE 0.9% 1,000 ML IV STA (07:20)
[2023-11-04] MEDS: PHENAZOPYRIDINE 200 MG TAB PO STA (07:20)
[2023-11-04] MEDS: MORPHINE SULFATE 2 MG/ML SYRINGE IVP STA (07:20)
[2023-11-04 07:29] LABS: Appearance,Urine Cloudy (Clear); Bacteria,Urine Many /hpf; Bilirubin,Urine Negative (Negative); Blood,Urine Small (Negative); Color,Urine Colorless; Glucose,Urine (UA) 2+ (Negative); Ketones,Urine Negative (Negative); Leukocyte Esterase,Urine Moderate (Negative); Mucus,Urine Rare /hpf; Nitrite,Urine Negative (Negative); PH, Urine 6.5 (5.0-8.0); Protein,Urine 3+ (Negative); RBC,Urine 8 /hpf (0-5); Specific Gravity,Urine 1.015 (1.001-1.035); Squamous Epithelial Cell,Urine 4 /hpf (0-4); Urobilinogen,Urine <2.0 mg/dL (<2.0); WBC,Urine 72 /hpf (0-5)
[2023-11-04 07:55] LABS: ALT 16 U/L (4-34); AST 19 U/L (14-36); African American GFR (CKD) 37 (>60 ml/min/1.73 sqM); Alkaline Phosphatase 88 U/L (38-126); Anion Gap 3 mmol/L; Blood Urea Nitrogen 47 mg/dL (7-17); Calcium 8.6 mg/dL (8.4-10.2); Carbon Dioxide 25 mmol/L (22-30); Chloride 113 mmol/L (98-107); Glucose 199 mg/dL (74-99); Non-African American GFR(CKD) 32 (>60 ml/min/1.73 sqM); Potassium 4.3 mmol/L (3.5-5.1); Sodium 141 mmol/L (137-145); Total Bilirubin 0.3 mg/dL (0.2-1.3); Total Protein 5.6 g/dL (6.3-8.2)
[2023-11-04] MEDS: cefTRIAXone IN SWFI 1,000 MG/10 ML SYRINGE IVP STA (08:31)
[2023-11-04] MEDS: HYDROmorphone 0.5 MG/0.5 ML SYRINGE IVP STA (08:31)
[2023-11-04] MEDS: ONDANSETRON 4 MG ODT STARTER PACK 2 TAB BTL PO STA (08:32)
[2023-11-04] MEDS: ACET/COD 300 MG/30 MG STARTER PACK 6 TAB BTL PO STA (08:32)
[2023-11-04 09:02] VITALS: BP 152/99; PULSE 82; RESP 17
== END 2023-11-04 09:02 | disposition home or self-care (01) ==
LOC: EC 06:28
DX: N39.0 Urinary tract infection, site not specified (principal); E11.9 Type 2 diabetes mellitus without complications; Z91.041 Radiographic dye allergy status; Z91.040 Latex allergy status; Z88.8 Allergy status to other drugs, medicaments and biological substances; Z91.013 Allergy to seafood
CPT/HCPCS: 51798; 36415; 80053; 83605; 85025; 81001; 87086; 99284; 96374; 96375 ×3; 96361 ×2; J2405; J0696; J2270; S0119; J1170

== ENCOUNTER → 2024-02-17 | Outpatient (CLI) | payer MEDICARE, OTHER ==
[2024-02-17 15:36] LABS: ALT 16 U/L (8-44); AST 16 U/L (13-35); Albumin 2.9 g/dL (3.8-4.9); Albumin/Globulin Ratio 1.26 Ratio (1.60-3.17); Alkaline Phosphatase 95 U/L (41-126); BUN/Creat Ratio 23.32 Ratio (12.00-20.00); Blood Urea Nitrogen 51.3 mg/dL (9.0-27.0); Calcium 7.9 mg/dL (8.7-10.3); Carbon Dioxide 21.6 mmol/L (21.6-31.8); Chloride 115 mmol/L (96-109); Chol/HDL Ratio 5.83 Ratio; Globulin 2.3 g/dL (1.6-3.3); Glucose 126 mg/dL (70-110); LDL Cholesterol,Calculated 115.4 mg/dL (0.0-131.0); Potassium 4.1 mmol/L (3.5-5.5); Sodium 146 mmol/L (135-145); Total Bilirubin <0.2 mg/dL (0.3-1.2); Total Protein 5.2 g/dL (6.2-8.2)
[2024-02-17 20:09] LABS: HIV 2 AB Non-Reactive (Non-Reactive); HIV AB P24 Non-Reactive (Non-Reactive); HIV P24 AG Non-Reactive (Non-Reactive)
[2024-02-17 20:44] LABS: Microalbumin Creatinine Ratio >5641 mg/g Cr (0-30)
== END | disposition home or self-care (01) ==
LOC: LABWHC1 10:58
PROVIDERS: ATTEND Registered Nurse
DX: Z11.59 Encounter for screening for other viral diseases (principal); Z11.4 Encounter for screening for human immunodeficiency virus [HIV]; E11.42 Type 2 diabetes mellitus with diabetic polyneuropathy; E11.59 Type 2 diabetes mellitus with other circulatory complications; E11.319 Type 2 diabetes mellitus with unspecified diabetic retinopathy without macular edema; E11.22 Type 2 diabetes mellitus with diabetic chronic kidney disease; E11.69 Type 2 diabetes mellitus with other specified complication; N18.31 Chronic kidney disease, stage 3a; E78.5 Hyperlipidemia, unspecified; Z79.4 Long term (current) use of insulin
CPT/HCPCS: 36415; 80053; 80061; 82043; 82570; 83036; 83970; 86803; 87390

== ENCOUNTER → 2024-06-19 | Outpatient (CLI) | payer MEDICARE, OTHER ==
[2024-06-19 10:30] LABS: Creatinine,Urine Random 57.7 mg/dL
[2024-06-19 10:31] LABS: Appearance,Urine Clear (Clear); Bilirubin,Urine Negative (Negative); Blood,Urine Negative (Negative); Color,Urine Colorless; Glucose,Urine (UA) 3+ (Negative); Ketones,Urine Negative (Negative); Leukocyte Esterase,Urine Trace (Negative); Mucus,Urine Rare /hpf; Nitrite,Urine Negative (Negative); Protein,Urine 3+ (Negative); RBC,Urine 1 /hpf (0-5); Specific Gravity,Urine 1.015 (1.001-1.035); Squamous Epithelial Cell,Urine 3 /hpf (0-4); Triple Phosphate Crystal,Urine Occasional /hpf; Urobilinogen,Urine <2.0 mg/dL (<2.0); WBC,Urine 18 /hpf (0-5)
[2024-06-19 14:53] LABS: Basophils # (A) 0.07 X 10*3/uL (0.00-0.10); Basophils % (A) 0.7 %; Eosinophils # (A) 0.29 X 10*3/uL (0.04-0.35); HCT 37.6 % (37.2-46.3); HGB 12.4 g/dL (12.0-15.0); Lymphocytes # (A) 2.42 X 10*3/uL (0.90-5.00); Lymphocytes % (A) 24.7 %; MCH 29.5 pg (27.0-32.0); MCV 89.5 FL (80.0-97.0); Mean Platelet Volume 10.8 FL (9.5-12.2); Monocytes # (A) 0.49 X 10*3/uL (0.20-1.00); NRBC Per 100 WBC 0 X 10*3/uL (0.00-0.01); Neutrophils # (A) 6.48 X 10*3/uL (1.80-7.70); Neutrophils % (A) 66.1 %; Platelet Count 228 X 10*3/uL (140-440)
[2024-06-19 15:57] LABS: % Iron Saturation 32.55 (12.00-45.00); Albumin 3.2 g/dL (3.8-4.9); BUN/Creat Ratio 18.51 Ratio (12.00-20.00); Blood Urea Nitrogen 64.8 mg/dL (9.0-27.0); Calcium 8.5 mg/dL (8.7-10.3); Chloride 116 mmol/L (96-109); Glucose 172 mg/dL (70-110); Iron 83 UG/DL (50-170); Phosphorus 4.9 mg/dL (2.4-5.1); Potassium 4.2 mmol/L (3.5-5.5); Sodium 143 mmol/L (135-145); Total Iron Binding Capacity 255 UG/DL (228-460); Uric Acid 5.2 mg/dL (2.9-7.7)
[2024-06-19 16:16] LABS: Hepatitis A Antibody IgM Nonreactive (Nonreactive); Hepatitis B Core IgM Nonreactive (Nonreactive); Hepatitis B Surface Antigen Nonreactive (Nonreactive); Hepatitis C IgG Antibody Nonreactive (Nonreactive)
[2024-06-19 18:42] LABS: Urine Creatinine 62.4 mg/dL (28.0-217.0)
[2024-06-19 19:07] LABS: Microalbumin Creatinine Ratio >7051 mg/g Cr (0-30)
[2024-06-19 19:44] LABS: Anti-DNA, DS unit <1.0 IU/mL; DNA Double-Stranded Negative (Negative)
[2024-06-20 12:16] LABS: Protein, Total 5.7 g/dL (6.2-8.2)
[2024-06-20 12:28] LABS: Free Kappa Lt Chain Qnt, Serum 8.42 mg/dL (0.33-1.94); Free Lambda Lt Chain Qnt, Seru 8.65 mg/dL (0.57-2.63)
[2024-06-20 13:44] LABS: C-ANCA <1:20 Titer (<1:20)
== END | disposition home or self-care (01) ==
LOC: LABWHC1 09:00
PROVIDERS: ATTEND Internal Medicine Nephrology
DX: E55.9 Vitamin D deficiency, unspecified (principal); N18.4 Chronic kidney disease, stage 4 (severe); N25.81 Secondary hyperparathyroidism of renal origin; M10.9 Gout, unspecified; N39.0 Urinary tract infection, site not specified; D63.1 Anemia in chronic kidney disease; R80.9 Proteinuria, unspecified
CPT/HCPCS: 36415; 80048; 80074; 81001; 82040; 82043; 82306; 82570; 82728; 83516; 83540; 83550; 83735; 83883; 83970; 84100; 84156; 84165; 84550; 85025; 86038; 86160; 86162; 86225; 86255; 86334; 86335

== ENCOUNTER → 2024-07-02 | Outpatient (CLI) | payer MEDICARE, OTHER ==
[2024-07-02 16:41] LABS: BUN/Creat Ratio 15.37 Ratio (12.00-20.00); Blood Urea Nitrogen 58.4 mg/dL (9.0-27.0); Calcium 8.3 mg/dL (8.7-10.3); Carbon Dioxide 20.6 mmol/L (21.6-31.8); Chloride 113 mmol/L (96-109); Glucose 56 mg/dL (70-110); Potassium 4.6 mmol/L (3.5-5.5); Sodium 145 mmol/L (135-145)
[2024-07-02 21:55] LABS: Total Volume 24 Hour,Urine 1850 mL
== END | disposition home or self-care (01) ==
LOC: LABWHC1 12:33
PROVIDERS: ATTEND Internal Medicine Nephrology
DX: N18.4 Chronic kidney disease, stage 4 (severe) (principal); D63.1 Anemia in chronic kidney disease; N39.0 Urinary tract infection, site not specified; M10.9 Gout, unspecified; N25.81 Secondary hyperparathyroidism of renal origin; E55.9 Vitamin D deficiency, unspecified; R80.9 Proteinuria, unspecified
CPT/HCPCS: 36415; 80048; 81050; 84156

== ENCOUNTER → 2024-07-26 | Outpatient (CLI) | payer MEDICARE, OTHER ==
[2024-07-27 03:21] LABS: Blood Urea Nitrogen 54.8 mg/dL (9.0-27.0); Calcium 8.1 mg/dL (8.7-10.3); Carbon Dioxide 23.8 mmol/L (21.6-31.8); Chloride 112 mmol/L (96-109); Glucose 46 mg/dL (70-110); Potassium 4.6 mmol/L (3.5-5.5); Sodium 146 mmol/L (135-145)
== END | disposition home or self-care (01) ==
LOC: LABWHC1 15:54
PROVIDERS: ATTEND Internal Medicine Nephrology
DX: N18.4 Chronic kidney disease, stage 4 (severe) (principal)
CPT/HCPCS: 36415; 80048

== ENCOUNTER → 2024-08-17 | Outpatient (CLI) | payer MEDICARE, OTHER ==
[2024-08-18 01:36] LABS: Total Volume 24 Hour,Urine 1900 mL
[2024-08-18 01:37] LABS: Total Protein 24 Hour,Urine >11400.0 mg/24Hr (0.0-165.0)
== END | disposition home or self-care (01) ==
LOC: LABWHC1 08:42
PROVIDERS: ATTEND Internal Medicine
DX: R80.9 Proteinuria, unspecified (principal)
CPT/HCPCS: 81050; 84156

== ENCOUNTER 2024-08-23 06:07 | Day surgery (SDC) | payer MEDICARE, OTHER ==
[2024-08-21 11:02] VITALS: BMI 27.8
[2024-08-23] MEDS: IV FLUID CONTINUATION 1,000 ML IV ONE (06:30)
[2024-08-23 06:44] LABS: Basophils # (A) 0.05 10*3/uL (0.00-0.10); Basophils % (A) 0.5 %; Eosinophils # (A) 0.68 10*3/uL (0.04-0.35); Eosinophils % (A) 6.5 %; HCT 31.4 % (37.2-46.3); HGB 10.6 g/dL (12.0-15.0); Lymphocytes # (A) 2.27 10*3/uL (0.90-5.00); Lymphocytes % (A) 21.6 %; MCH 29.9 pg (27.0-32.0); MCHC 33.8 g/dL (32.0-37.0); MCV 88.7 fL (80.0-97.0); Mean Platelet Volume 9.6 fL (9.5-12.2); Monocytes # (A) 0.68 10*3/uL (0.20-1.00); Monocytes % (A) 6.5 %; Neutrophils # (A) 6.78 10*3/uL (1.80-7.70); Neutrophils % (A) 64.4 %; Platelet Count 175 10*3/uL (140-440); RBC 3.54 10*6/uL (4.10-5.20); RDW 12.3 % (11.5-14.5); WBC 10.51 10*3/uL (4.50-10.00)
[2024-08-23 07:00] VITALS: TEMP 97.2
[2024-08-23 07:02] LABS: African American GFR (CKD) 14 (>60 ml/min/1.73 sqM); Anion Gap 7 mmol/L; Blood Urea Nitrogen 58 mg/dL (7-17); Calcium 8.1 mg/dL (8.4-10.2); Carbon Dioxide 18 mmol/L (22-30); Chloride 115 mmol/L (98-107); Glucose 199 mg/dL (74-99); Non-African American GFR(CKD) 12 (>60 ml/min/1.73 sqM); Potassium 4.4 mmol/L (3.5-5.1); Sodium 140 mmol/L (137-145)
[2024-08-23] MEDS: MIDAZOLAM 2 MG/2 ML VIAL IVP ONE (07:47)
[2024-08-23] MEDS: fentaNYL (PF) 50 MCG/1 ML VIAL IVP ONE (07:47)
[2024-08-23] MEDS: LIDOCAINE 1% INJ 10MG/ML (20 ML MDV) SQ ONE (07:47)
[2024-08-23] MEDS: HEPARIN SODIUM 1,000 UN/ML (10ML VL) IVP ONE ×2 (07:53)
[2024-08-23] MEDS: ceFAZolin 2 GM in DEXTROSE 5% IN WATER 50 ML IVPB ONE (08:04)
--- NOTE | 2024-08-23 08:11 | P.OP ---
Date of Procedure: 08/23/24 Description of Procedure: DATE OF PROCEDURE: 08/23/2024 PREOPERATIVE DIAGNOSIS: Need for dialysis PROCEDURE: 1. Ultrasound-guided right internal jugular vein access. 2. Placement of a 19 cm tunneled dialysis catheter with fluoroscopic assistance. 3. Moderate conscious sedation times 9 minutes PROCEDURE: The patient was brought to the Clothes Presser placed in supine position. The bilateral necks were prepped and draped in usual sterile fashion. A preprocedure timeout was performed, all parties were in agreement. Using ultrasound the right internal jugular was identified. The site overlying the vein was anesthetized with 1% lidocaine plain and an access needle was used to gain access to the internal jugular vein with return of dark venous, nonpulsatile blood. Seldinger technique was used and a micro-access sheath was placed. Attention was then turned towards the tunnel. The chest wall was a nesthetized with 1% lidocaine plain. A small fawad and the skin was made and the previously flushed catheter was tunneled through the anticipated location. Using Seldinger technique and fluoroscopic assistance, the 35 Glidewire was placed and the tract was serially dilated. The final tear-away sheath was left in place. The inner cannula and wire were removed. The catheter was placed in the tear-away sheath was removed in standard fashion. The catheter showed good positioning was final resting place in the cavoatrial junction. The catheter aspirated and flushed freely. The incision at the neck was reapproximated with interrupted sutures of 4-0 Vicryl. The catheter was sutured in place with 3-0 nylon. Dressings were placed. The patient was allowed to awaken from anesthesia and transferred to recovery in stable condition having tolerated the procedure well. A post procedure chest x-ray is pending Plan - Discharge Summary Discharge Rx Participant: No New Discharge Prescriptions: No Action Insulin Detemir [Levemir Flextouch] 34 unit SQ HS glipiZIDE 5 mg PO BID carvediloL [Coreg] 25 mg PO BID Sodium Bicarbonate Tab 650 mg PO BID Mometasone/Formoterol [Dulera 200 Mcg-5 Mcg Inhaler] 2 puff INHALATION RT-BID PRN PRN Reason: Shortness Of Breath Insulin Aspart [NovoLOG Flexpen] 45 units SQ AC-TID Fluticasone Nasal [place] [Flonase Nasal [place]mage] 2 spr EA NOSTRIL BID PRN PRN Reason: allergies Mirabegron [Myrbetriq] 25 mg PO QAM Rosuvastatin Calcium 5 mg PO QAM Vitamin D(Unknown Dose) 1 dose PO BID Discharge Medication List Fluticasone Nasal [place] [Flonase Nasal [place]] 2 spr EA NOSTRIL BID PRN 11/27/22 [History] Insulin Aspart [NovoLOG Flexpen] 45 units SQ AC-TID 11/27/22 [History] Insulin Detemir [Levemir Flextouch] 34 unit SQ HS 11/27/22 [History] Mirabegron [Myrbetriq] 25 mg PO QAM 11/27/22 [History] Mometasone/Formoterol [Dulera 200 Mcg-5 Mcg Inhaler] 2 puff INHALATION RT-BID PRN 11/27/22 [History] Rosuvastatin Calcium 5 mg PO QAM 11/27/22 [History] glipiZIDE 5 mg PO BID 11/27/22 [History] Sodium Bicarbonate Tab 650 mg PO BID 08/21/24 [History] Vitamin D(Unknown Dose) 1 dose PO BID 08/21/24 [History] carvediloL [Coreg] 25 mg PO BID 08/21/24 [History] Follow up Appointment(s)/Referral(s): Archana Guallpa DO [STAFF PHYSICIAN] - As Needed (Will call for scheduling of loop forearm graft. No need for follow-up until after surgical intervention unless issues or questions) Discharge Disposition: HOME SELF-CARE
--- NOTE | 2024-08-23 08:51 | IR ---
EXAMINATION TYPE: IR cvc insert central tunneled DATE OF EXAM: 08/23/2024 8:15 AM COMPARISON: Pre Operative Images if available both CT/MRI or plain film CLINICAL INDICATION: Female, 59 years old with history of Hemodialysis Catheter 0.4 min FL, 0.204 DAP ; TECHNIQUE: IR cvc insert central tunneled, multiple fluoroscopic images provided for procedure. DAP: 0.204 mGym2 Gycm2 uGym2 cGycm2 or equivalent. FINDINGS: IMPRESSION: 1. Report was generated for administrative purposes only. 2. Please see the operative/procedural note for further details. [facility], , 08/23/2024 8:49 AM
--- NOTE | 2024-08-23 08:55 | XR ---
EXAMINATION TYPE: XR chest 1V portable DATE OF EXAM: 08/23/2024 8:30 AM COMPARISON: None CLINICAL INDICATION: Female, 59 years old with history of catheter placement; [facility] TECHNIQUE: XR chest 1V portable Frontal view of the chest. FINDINGS: Lungs/Pleura: There is no evidence of pleural effusion, focal consolidation, or pneumothorax. Pulmonary vascularity: Unremarkable. Heart/mediastinum: Cardiomediastinal silhouette is unremarkable. Musculoskeletal: No acute osseous pathology. Other findings: None Lines/Tubes: Right internal jugular central venous catheter with distal tip at the cavoatrial junction. IMPRESSION: No acute cardiopulmonary disease/process. [facility], , 08/23/2024 8:53 AM
[2024-08-23 18:04] VITALS: BP 154/69; PULSE 81; RESP 16
== END 2024-08-23 09:03 | disposition home or self-care (01) ==
LOC: OR 06:07
PROVIDERS: ATTEND Surgery
DX: N18.6 End stage renal disease (principal); Z99.2 Dependence on renal dialysis; Z88.5 Allergy status to narcotic agent; Z79.84 Long term (current) use of oral hypoglycemic drugs; Z79.899 Other long term (current) drug therapy
CPT/HCPCS: 80048; 85025; 71045; 36558; C1769; C1750; J2250; J0690; J2003; J1644; J3010; 76937; 77001

== ENCOUNTER 2024-09-13 10:33 | Day surgery (SDC) | payer MEDICARE, OTHER ==
[~2024-09-13 10:33] MED LIST changes: +HYDROmorphone 0.5 MG/0.5 ML SYRINGE IVP PRN; +LIDOCAINE 1% (10MG/ML) FOR IV START INTRADERMA PRN; +fentaNYL (PF) 50 MCG/ML 2 ML AMP IVP PRN
[2024-09-13] MEDS: SODIUM CHLORIDE 0.9% 1,000 ML IV ONE (11:46)
[2024-09-13 12:06] LABS: Glucose,Whole Blood 147 mg/dL (70-110)
[2024-09-13 12:07] VITALS: TEMP 97.9
[2024-09-13] MEDS: DEXAMETHASONE SOD PHOSPHATE 4 MG/ML 1 ML VIAL IV ONE (12:10)
[2024-09-13] MEDS: ONDANSETRON 4 MG/2 ML VIAL IVP ONE (12:10)
[2024-09-13] MEDS: MIDAZOLAM 2 MG/2 ML VIAL IV PRN (12:24)
[2024-09-13] MEDS ORDERED: DEXAMETHASONE SOD PHOSPHATE 4 MG/ML 1 ML VIAL ONE (12:54)
[2024-09-13] MEDS ORDERED: HEPARIN SODIUM,PORCINE 5,000 UNIT/ML 1 ML VIAL ONE (12:54)
[2024-09-13] MEDS ORDERED: MIDAZOLAM 2 MG/2 ML VIAL ONE (12:54)
[2024-09-13] MEDS ORDERED: PROPOFOL 10 MG/ML 20 ML VIAL IV ONE (12:54)
[2024-09-13] MEDS ORDERED: ROPIVACAINE 5 MG/ML 30 ML VIAL ONE (12:54)
[2024-09-13] MEDS ORDERED: fentaNYL (PF) 50 MCG/ML 2 ML AMP ONE (12:54)
[2024-09-13] MEDS: ceFAZolin 2 GM in SODIUM CHLORIDE 0.9% 500 ML 500 ML IRRIGATION ONE (12:58)
[2024-09-13] MEDS: ceFAZolin 2 GM in DEXTROSE 5% IN WATER 50 ML IVPB PRN (12:58)
[2024-09-13] MEDS: HEPARIN SODIUM,PORCINE (1 ML) 2,000 UNIT in SODIUM CHLORIDE 0.9% 500 ML 500 ML IRRIGATION ONE (12:58)
--- NOTE | 2024-09-13 13:51 | P.ANPRN ---
Procedure Note - Anesthesia - Nerve Block Performed Right Infraclavicular Single Time Out Performed: Yes (1223) Date of Procedure: 09/13/24 Indication: Acute Post-Operative Pain (Also for intraop use), Analgesia, Dx/Pain Location, Requested by Surgeon Specifically requested for management of pain by DrPreethi: Archana Guallpa Sedation Type: Sedate with meaningful contact maintained Preparation: Sterile Prep Position: Supine Catheter: None Needle Types: Pajunk Needle Gauge: 21 Ultrasound used to visualize needle placement: Yes Ultrasound used to observe medication spread: Yes Injectate: 0.5% Ropivacaine (see comment for volume) (30 cc + 4mg of decadron) Blood Aspirated: No Pain Paresthesia on Injection Noted: No Resistance on Injection: Normal Image Stored and Saved: Yes Events: Uneventful and Well Tolerated
[2024-09-13 14:51] VITALS: BP 142/85
--- NOTE | 2024-09-13 14:59 | P.OP ---
Date of Procedure: 09/13/24 Description of Procedure: Preoperative diagnosis: Need for dialysis Postoperative diagnosis: Same Procedure: Right upper extremity loop forearm graft Surgeon: Archana Panchal D.O. Anesthesia: Regional block with sedation EBL: 15 mL IV fluids: See operative records Urine output: Not measured Drains: None Complications: None immediately apparent Condition: Stable to PACU Operative indication and findings: Procedure in detail: The patient was taken to the operative suite and placed in supine position. The upper extremity is prepped and draped in usual sterile fashion. A preprocedure timeout was performed, all parties were in agreement. A transverse incision was made just distal to the antecubital fossa and carried down to the level of the brachial artery. It was dissected free circumferentially and proximal and distal Vesseloops were placed. Attention was then turned towards the venous outflow. The most appropriate sized appearing vein was the median cubital vein therefore it was dissected free and encircled proximally and distally. The 4 x 7 propatent graft was then tunneled through a counter incision in the forearm and a subcutaneous tissues. The patient was then heparinized. Flow was occluded through the artery. An arteriotomy was performed and anastomosis to the graft was performed with 6-0 Prolene. The graft was then flushed and the anastomosis was tied. Flow was resumed through the artery. Attention was then turned towards the venous anastomosis. Flow was occluded through the vein and a venotomy was performed. Anastomosis created with 6-0 Prolene. Prior to completion of the anastomosis the graft was flushed as well as the veins themselves. Flow was reinstituted. There remained a palpable pulse proximal and distal to the arterial anastomosis as well as a palpable pulse and strong signal in the wrist. The incision sites were copiously irrigated the subcutaneous tissues were approximately with 3-0 Vicryl in interrupted fashion and the skin was reapproximated with running 4-0 Monocryl. Skin glue was placed. The patient was allowed awaken from anesthesia and transferred to PACU in stable condition having tolerated the procedure well.
[2024-09-13 15:22] VITALS: PULSE 78; RESP 18
== END 2024-09-13 15:49 | disposition home or self-care (01) ==
LOC: OR 10:33
PROVIDERS: ATTEND Surgery
DX: N18.6 End stage renal disease (principal); I48.91 Unspecified atrial fibrillation; J44.89 Other specified chronic obstructive pulmonary disease; K21.9 Gastro-esophageal reflux disease without esophagitis; I12.0 Hypertensive chronic kidney disease with stage 5 chronic kidney disease or end stage renal disease; E11.22 Type 2 diabetes mellitus with diabetic chronic kidney disease; F17.210 Nicotine dependence, cigarettes, uncomplicated; E78.5 Hyperlipidemia, unspecified; F32.A Depression, unspecified; M19.90 Unspecified osteoarthritis, unspecified site; Z99.2 Dependence on renal dialysis; Z91.040 Latex allergy status; Z91.041 Radiographic dye allergy status; Z91.013 Allergy to seafood; Z79.4 Long term (current) use of insulin; Z79.899 Other long term (current) drug therapy
CPT/HCPCS: 64415; 84132; 36830; L8670; J2250; J1644; J1100; J0690; J2405; J3010; J1642; J2795; J2704

== ENCOUNTER → 2024-09-19 | Outpatient (CLI) | payer MEDICARE, OTHER ==
[2024-09-19 15:58] LABS: Basophils # (A) 0.02 X 10*3/uL (0.00-0.10); Basophils % (A) 0.2 %; Eosinophils # (A) 0.47 X 10*3/uL (0.04-0.35); Eosinophils % (A) 4.5 %; HGB 9.8 g/dL (12.0-15.0); Lymphocytes # (A) 2.42 X 10*3/uL (0.90-5.00); Lymphocytes % (A) 23.3 %; MCH 29.2 pg (27.0-32.0); MCHC 31.6 g/dL (32.0-37.0); MCV 92.3 FL (80.0-97.0); Mean Platelet Volume 11.4 FL (9.5-12.2); Monocytes # (A) 0.73 X 10*3/uL (0.20-1.00); NRBC Per 100 WBC 0 X 10*3/uL (0.00-0.01); Neutrophils # (A) 6.66 X 10*3/uL (1.80-7.70); Neutrophils % (A) 64.3 %; Platelet Count 171 X 10*3/uL (140-440); RBC 3.36 X 10*6/uL (4.10-5.20); RDW 12.5 % (11.5-14.5); WBC 10.37 X 10*3/uL (4.50-10.00)
[2024-09-19 16:22] LABS: BUN/Creat Ratio 14.63 Ratio (12.00-20.00); Blood Urea Nitrogen 67.3 mg/dL (9.0-27.0); Calcium 7.8 mg/dL (8.7-10.3); Carbon Dioxide 18.7 mmol/L (21.6-31.8); Chloride 114 mmol/L (96-109); Glucose 186 mg/dL (70-110); Iron 47 UG/DL (50-170); Phosphorus 4.4 mg/dL (2.4-5.1); Potassium 4.5 mmol/L (3.5-5.5); Sodium 144 mmol/L (135-145); Total Iron Binding Capacity 200 UG/DL (228-460); Uric Acid 6.3 mg/dL (2.9-7.7)
[2024-09-19 16:23] LABS: Albumin 2.7 g/dL (3.8-4.9)
[2024-09-19 18:22] LABS: Urine Creatinine 95.5 mg/dL (28.0-217.0)
[2024-09-19 18:59] LABS: Microalbumin Creatinine Ratio >4607 mg/g Cr (0-30)
== END | disposition home or self-care (01) ==
LOC: LABWHC1 08:54
PROVIDERS: ATTEND Nurse Practitioner Family
DX: E55.9 Vitamin D deficiency, unspecified (principal); N25.81 Secondary hyperparathyroidism of renal origin; M10.9 Gout, unspecified; N39.0 Urinary tract infection, site not specified; N18.5 Chronic kidney disease, stage 5; D63.1 Anemia in chronic kidney disease
CPT/HCPCS: 36415; 80048; 82040; 82043; 82306; 82570; 82728; 83540; 83550; 83735; 83970; 84100; 84550; 85025

== ENCOUNTER 2024-09-21 08:25 | Inpatient (IN) | payer MEDICARE, OTHER ==
--- NOTE | 2024-09-21 08:36 | ED ---
Extremity Problem HPI - General Chief complaint: Extremity Problem,Nontraumatic Stated complaint: Right Arm Skin Issue Time Seen by Provider: 09/21/24 08:26 Source: patient, RN notes reviewed Mode of arrival: EMS Limitations: no limitations - History of Present Illness Initial comments: This is a 59-year-old female who presents to the emergency department for concerns of a right arm infection. Patient had surgery for fistula creation with Dr. Panchal on 09/13 in anticipation for dialysis. States that shortly after surgery she noticed increasing pain and swelling. This has since started to get worse and she is concerned about infection. States that in general she is feeling unwell. She has not measured any fevers or chills. Not currently on any antibiotics. She does also have more localized areas of erythema where bandages were previously present, which she attributes to a latex allergy from the bandages themselves. MD Complaint: extremity pain, extremity swelling - Related Data Home Medications Medication Instructions Recorded Confirmed Insulin Aspart [NovoLOG Flexpen] 10 units SQ AC-TID PRN 11/27/22 09/21/24 Mirabegron [Myrbetriq] 25 mg PO DAILY 11/27/22 09/21/24 Rosuvastatin Calcium 5 mg PO DAILY 11/27/22 09/21/24 glipiZIDE 5 mg PO BID 11/27/22 09/21/24 Sodium Bicarbonate Tab 650 mg PO BID 08/21/24 09/21/24 Ergocalciferol [Vitamin D2 (1250 1,250 mcg PO MO 09/11/24 09/21/24 Mcg = 79729 Iu)] Ibandronate Sodium [Boniva] 150 mg PO QMONTHLY 09/21/24 09/21/24 Insulin Glargine,Hum.rec.anlog 15 - 20 units SQ HS 09/21/24 09/21/24 [Lantus Solostar Pen] carvediloL [Coreg] 25 mg PO BID 09/21/24 09/21/24 Allergies Allergy/AdvReac Type Severity Reaction Status Date / Time coconut Allergy Swelling Verified 09/21/24 13:07 fish oil Allergy Anaphylaxis Verified 09/21/24 13:07 iodine Allergy Anaphylaxis Verified 09/21/24 13:07 Latex, Natural Rubber Allergy Rash/Hives Verified 09/21/24 13:07 lavender (Lavandula Allergy Dyspnea Verified 09/21/24 13:07 angustifolia) Review of Systems ROS Statement: Those systems with pertinent positive or pertinent negative responses have been documented in the HPI. ROS Other: All systems not noted in ROS Statement are negative. Past Medical History Past Medical History: Atrial Fibrillation, Asthma, COPD, Diabetes Mellitus, GERD/Reflux, Hearing Disorder / Deafness, Hyperlipidemia, Hypertension, Osteoarthritis (OA), Renal Disease Additional Past Medical History / Comment(s): Pt thinks she has sleep apnea-has not been dx. osteoporosis. stage 5 kidney failure. andrew leg pain with ambulation. has CGM- states blood sugars have been low, hasn't taken any insulin in over one month- advised pt to notified PCP. andrew MORONGO- no hearing aids. History of Any Multi-Drug Resistant Organisms: None Reported Past Surgical History: Section, Cholecystectomy, Hysterectomy, Orthoped ic Surgery Additional Past Surgical History / Comment(s): hx left hip surgery with hardware- 4 pins & plate 4 yrs ago. Past Anesthesia/Blood Transfusion Reactions: No Reported Reaction Smoking Status: Former smoker - Past Family History Father Family Medical History: Diabetes Mellitus Mother Family Medical History: Diabetes Mellitus General Exam Limitations: no limitations General appearance: alert, in no apparent distress Head exam: Present: atraumatic, normocephalic, normal inspection Respiratory exam: Present: normal lung sounds bilaterally. Absent: respiratory distress, wheezes, rales, rhonchi, stridor Cardiovascular Exam: Present: regular rate, normal rhythm Extremities exam: Present: other (Diffuse swelling, tenderness, and warmth to the right upper extremity. Incisions are intact with localized areas of increased erythema. Range of motion limited by pain. 2+ radial pulses) Neurological exam: Present: alert, oriented X3, CN II-XII intact Psychiatric exam: Present: normal affect, normal mood Course Vital Signs 09/21/24 09/21/24 09/21/24 08:32 10:29 12:00 Temperature 97.1 F L Pulse Rate 86 92 95 Respiratory 18 18 18 Rate Blood Pressure 188/91 186/91 187/92 O2 Sat by Pulse 99 98 95 Oximetry Medical Decision Making - Medical Decision Making This is a 59-year-old female who presents to the emergency department for right arm pain. Was pt. sent in by a medical professional or institution? @ -No Did you speak to anyone other than the patient for history? @ -No Did you review nursing and triage notes? @ -Yes, and I agree, it is accurate with regards to the patient's symptoms. Were old charts reviewed? @ -No Differential Diagnosis? @ -Differential Musculoskeletal Muscular strain, contusion, ligament sprain, fracture, arthritis, septic arthritis, bursitis, cellulitis, muscle spasm, nerve compression, DVT, arterial occlusion, herpes zoster, electrolyte abnormality, tumor.... This is not meant to be in all inclusive list EKG interpreted by me (3pts min.)? @ -Not obtained X-rays interpreted by me (1pt min.)? @ -Not obtained CT interpreted by me (1pt min.)? @ -CT scan of the right upper extremity obtained. My interpretation identifies soft tissue swelling. U/S interpreted by me (1pt. min.)? @ -Duplex ultrasound of the right upper extremity obtained. My interpretation identifies no evidence of a DVT. What testing was considered but not performed? (CT, X-rays, U/S, labs)? Why? @ -None What meds were considered but not given? Why? @ -None Did you discuss the management of the patient with other professionals? @ -Yes, Dr. Panchal, who advised applying a ASIA hose to the right upper extremity and starting her on antibiotics if felt to be necessary and she can follow-up outpatient. Dr. Ybarra accepts the patient for admission. Did you reconcile home meds? @ -No Was smoking cessation discussed for >3mins.? @ -No Was critical care preformed (if so, how long)? @ -No Were there social determinants of health that impacted care today? How? (Homelessness, low income, unemployed, alcoholism, drug addiction, transportation, low edu. Level, literacy, decrease access to med. care, senior care, rehab)? @ -No Was there de-escalation of care discussed even if they declined? (Discuss DNR or withdrawal of care, Hospice)? @ -No What co-morbidities impacted this encounter? (DM, HTN, Smoking, COPD, CAD, Cancer, CVA, Hep., AIDS, mental health diagnosis, sleep apnea, morbid obesity)? @ -ESRD, DM Was patient admitted / discharged? @ -Admitted. Lab work demonstrates mild leukocytosis with a white blood cell count of 10.47. CRP mildly elevated at 2.1. CT scan of the right upper extremity demonstrates diffuse soft tissue swelling. There was also a low- density at the loop of the AV shunt and they advised consideration of a gas- forming organism. Duplex ultrasound of the right upper extremity obtained as well revealing no evidence of a DVT. Case discussed with Dr. Panchal regarding CT scan findings. She advised that these are likely expected postoperative changes and a ASIA hose can be applied and the patient can follow up outpatient. She also advised that antibiotics could be started if there was concern for infection. This was discussed with the patient, who advised that her arm is too painful and she did not feel like she could go home. Patient subsequently admitted to medicine for intractable pain of the right upper extremity. She was started on vancomycin and Zosyn for any potential infectious component. Consult placed for vascular surgery given her postoperative state. Case discussed with ED attending Dr. Talbert. Undiagnosed new problem with uncertain prognosis? @ -None Drug Therapy requiring intensive monitoring for toxicity (Heparin, Nitro, Insulin, Cardizem)? @ -None Were any procedures done? @ -None Diagnosis/symptom? @ -Postoperative pain and swelling to right upper extremity, possible cellulitis Acute, or Chronic, or Acute on Chronic? @ -Acute Uncomplicated (without systemic symptoms) or Complicated (systemic symptoms)? @ -Uncomplicated Side effects of treatment? @ -None Exacerbation, Progression, or Severe Exacerbation] @ -Not applicable Poses a threat to life or bodily function? @ -Patient states unable to function due to her pain. - Lab Data Result diagrams: 09/21/24 08:39 09/21/24 08:39 Lab Results 09/21/24 09/21/24 09/21/24 Range/Units 08:39 08:39 08:39 WBC 10.47 H (4.50-10.00) 10*3/uL RBC 3.41 L (4.10-5.20) 10*6/uL Hgb 10.4 L (12.0-15.0) g/dL Hct 30.6 L (37.2-46.3) % MCV 89.7 (80.0-97.0) fL MCH 30.5 (27.0-32.0) pg MCHC 34.0 (32.0-37.0) g/dL Plt Count 182 (140-440) 10*3/uL MPV 9.2 L (9.5-12.2) fL Immature Gran % (Auto) 0.5 % Neutrophils % 67.0 % Lymphocytes % 19.9 % Monocytes % 8.3 % Eosinophils % 3.9 % Basophils % 0.4 % Immature Gran # 0.05 H (0.00-0.04) 10*3/uL Neutrophils # 7.02 (1.80-7.70) 10*3/uL Lymphocytes # 2.08 (0.90-5.00) 10*3/uL Monocytes # 0.87 (0.20-1.00) 10*3/uL Eosinophils # 0.41 H (0.04-0.35) 10*3/uL Basophils # 0.04 (0.00-0.10) 10*3/uL Sodium 140 (137-145) mmol/L Potassium 4.6 (3.5-5.1) mmol/L Chloride 114 H (98-107) mmol/L Carbon Dioxide 18 L (22-30) mmol/L Anion Gap 8 mmol/L BUN 69 H (7-17) mg/dL Creatinine 4.23 H (0.52-1.04) mg/dL Est GFR (CKD-EPI)AfAm 12 (>60 ml/min/1.73 sqM) Est GFR (CKD-EPI)NonAf 11 (>60 ml/min/1.73 sqM) Glucose 156 H (74-99) mg/dL Plasma Lactic Acid Vikash 0.7 (0.7-2.0) mmol/L Calcium 7.8 L (8.4-10.2) mg/dL Total Bilirubin 0.3 (0.2-1.3) mg/dL AST 16 (14-36) U/L ALT 9 (4-34) U/L Alkaline Phosphatase 69 (38-126) U/L C-Reactive Protein 2.1 H (<1.0) mg/dL Total Protein 5.2 L (6.3-8.2) g/dL Albumin 2.6 L (3.5-5.0) g/dL - Radiology Data Radiology results: report reviewed, image reviewed Disposition Clinical Impression: Pain and swelling of right upper extremity, Postoperative pain Disposition: ADMITTED IP TO THIS HOSP
[2024-09-21] MEDS: MORPHINE SULFATE 4 MG/ML SYRINGE IVP STA (08:43)
[2024-09-21 08:53] LABS: Basophils # (A) 0.04 10*3/uL (0.00-0.10); Basophils % (A) 0.4 %; Eosinophils # (A) 0.41 10*3/uL (0.04-0.35); Eosinophils % (A) 3.9 %; HCT 30.6 % (37.2-46.3); HGB 10.4 g/dL (12.0-15.0); Lymphocytes # (A) 2.08 10*3/uL (0.90-5.00); Lymphocytes % (A) 19.9 %; MCH 30.5 pg (27.0-32.0); MCV 89.7 fL (80.0-97.0); Mean Platelet Volume 9.2 fL (9.5-12.2); Monocytes # (A) 0.87 10*3/uL (0.20-1.00); Monocytes % (A) 8.3 %; Neutrophils # (A) 7.02 10*3/uL (1.80-7.70); Platelet Count 182 10*3/uL (140-440); RBC 3.41 10*6/uL (4.10-5.20); RDW 12.3 % (11.5-14.5); WBC 10.47 10*3/uL (4.50-10.00)
[2024-09-21 09:14] LABS: ALT 9 U/L (4-34); AST 16 U/L (14-36); African American GFR (CKD) 12 (>60 ml/min/1.73 sqM); Albumin 2.6 g/dL (3.5-5.0); Alkaline Phosphatase 69 U/L (38-126); Anion Gap 8 mmol/L; Blood Urea Nitrogen 69 mg/dL (7-17); C Reactive Protein 2.1 mg/dL (<1.0); Calcium 7.8 mg/dL (8.4-10.2); Carbon Dioxide 18 mmol/L (22-30); Chloride 114 mmol/L (98-107); Glucose 156 mg/dL (74-99); Non-African American GFR(CKD) 11 (>60 ml/min/1.73 sqM); Potassium 4.6 mmol/L (3.5-5.1); Sodium 140 mmol/L (137-145); Total Bilirubin 0.3 mg/dL (0.2-1.3); Total Protein 5.2 g/dL (6.3-8.2)
--- NOTE | 2024-09-21 09:31 | CT ---
EXAMINATION TYPE: CT upper extremity RT wo con DATE OF EXAM: 09/21/2024 9:11 AM COMPARISON: None. CLINICAL INDICATION: Female, 59 years old with history of Pain and swelling, Pain and swelling. Rash from elbow to wrist TECHNIQUE: Contrast used: mL of , (none if empty) Oral contrast used: (none if empty) Axial images at 3 mm thick sections. Reconstructed images in the coronal and sagittal planes. FINDINGS: Diffuse soft tissue swelling is present within the right forearm. Underlying osseous structures are i ntact. Elbow joint space appears preserved. No joint effusion is evident. Patient's dialysis graft is evident. There is eccentric low density adjacent. This is a -134 Hounsfie ld unit measurement. Consider possible air such as from infection. Example image series 204 image 61. Subcutaneous air is not otherwise evident. Subcutaneous increased density clips from infection or ed sugar is present. No abscess formation is identified. IMPRESSION: 1. DIFFUSE SOFT TISSUE SUPERFICIAL SWELLING. NO UNDERLYING ABSCESS IS IDENTIFIED. EDEMA AND INFECTION COULD BE CONSIDERED. 2. THERE IS SOME LOW DENSITY AT THE LOOP OF THE AV SHUNT. CONSIDER THE POSSIBILITY OF GAS-FORMING ORG ANISM. [facility], , 09/21/2024 9:29 AM
[2024-09-21] MEDS ORDERED: VANCOMYCIN IV PER PHARMACY 1 EACH MISC MISCELLANE PRN (09:47)
--- NOTE | 2024-09-21 10:16 | US ---
EXAMINATION TYPE: US venous doppler duplex UE RT DATE OF EXAM: 09/21/2024 COMPARISON: Same day CT CLINICAL INDICATION: Female, 59 years old with history of Pain and swelling; Pain, swelling right arm TECHNIQUE: Grayscale, color Doppler and spectral Doppler imaging of the upper extremity. SIDE PERFORMED: Right VESSELS IMAGED: IJV Subclavian Vein Axilla Vein Brachial Vein(s) Radial Paired Veins Ulnar Paired Veins Cephalic Vein* Basilic Vein* (*superficial vessels) FINDINGS: Right Arm: Negative for DVT Grayscale, color doppler, spectral doppler imaging performed of the deep veins of the upper extremiti es. IMPRESSION: 1. Right upper extremity ultrasound negative for deep venous thrombosis. [facility], , 09/21/2024 10:14 AM
[2024-09-21] MEDS: PIPERACILLIN-TAZOBACTAM 3.375 GM in SODIUM CHLORIDE 0.9% 100 ML IVPB STA (10:21)
[2024-09-21] MEDS: HYDROmorphone 1 MG/ML 1 ML SYRINGE IVP STA (10:22)
[2024-09-21] MEDS ORDERED: ACETAMINOPHEN TAB 325 MG TAB PO PRN (11:05)
[2024-09-21] MEDS ORDERED: NALOXONE 0.4 MG/ML 1 ML VIAL IV PRN (11:05)
[2024-09-21] MEDS: VANCOMYCIN 1,250 MG in SODIUM CHLORIDE 0.9% 250 ML IVPB ONE (12:06)
[2024-09-21] MEDS: ONDANSETRON 4 MG/2 ML VIAL IVP PRN (12:09)
--- NOTE | 2024-09-21 12:19 | P.HPIM ---
History of Present Illness This is a pleasant 59 years old female with past medical history of multiple medical problems including end-stage renal disease not on dialysis Presents of right arm redness and swelling after she had the procedure for graft creation with Dr. Panchal about 6 to 7 days ago followed by swelling redness warmth and tenderness which was gradually getting worse Denies chest pain or dyspnea. No other specific GI/ symptoms. She makes little urine. No headache dizziness weakness numbness. She denies smoking alcohol or illicit drugs. She is afebrile. Blood pressure elevated 186/91. She has not WBC of 10.4 hemoglobin 10.4 and creatinine 4.2 rest of labs reviewed looks unremarkable. Venous ultrasound of the right upper extremity is negative for DVT but there is diffuse soft tissue swelling with some density at the loop consider gas-forming microorganism Review of Systems Review of systems CONSTITUTIONAL: No fever, no malaise, no fatigue. HEENT: No recent visual problems or hearing problems. Denied any sore throat. CARDIOVASCULAR: No orthopnea, PND, no palpitations, no syncope. PULMONARY: No shortness of breath, no cough, no hemoptysis. GASTROINTESTINAL: No diarrhea, no nausea, no vomiting, no abdominal pain. Normoactive bowel sounds. NEUROLOGICAL: No headaches, no weakness, no numbness. HEMATOLOGICAL: Denies any bleeding or petechiae. GENITOURINARY: Denies any burning micturition, frequency, or urgency. -MUSCULOSKELETAL/RHEUMATOLOGICAL: As above ENDOCRINE: Denies any polyuria or polydipsia. Past Medical History Past Medical History: Atrial Fibrillation, Asthma, COPD, Diabetes Mellitus, GERD/Reflux, Hearing Disorder / Deafness, Hyperlipidemia, Hypertension, Osteoarthritis (OA), Renal Disease Additional Past Medical History / Comment(s): Pt thinks she has sleep apnea-has not been dx. osteoporosis. stage 5 kidney failure. andrew leg pain with ambulation. has CGM- states blood sugars have been low, hasn't taken any insulin in over one month- advised pt to notified PCP. andrew KARLUK- no hearing aids. History of Any Multi-Drug Resistant Organisms: None Reported Past Surgical History: Section, Cholecystectomy, Hysterectomy, Orthopedic Surgery Additional Past Surgical History / Comment(s): hx left hip surgery with hardwa re- 4 pins & plate 4 yrs ago. Past Anesthesia/Blood Transfusion Reactions: No Reported Reaction Smoking Status: Former smoker - Past Family History Father Family Medical History: Diabetes Mellitus Mother Family Medical History: Diabetes Mellitus Medications and Allergies Home Medications Medication Instructions Recorded Confirmed Type Fluticasone Nasal Newell [Flonase 2 spr EA NOSTRIL BID PRN 11/27/22 09/13/24 History Nasal Newell] Insulin Aspart [NovoLOG Flexpen] 45 units SQ AC-TID 11/27/22 09/13/24 History Insulin Detemir [Levemir Flextouch] 34 unit SQ HS 11/27/22 09/13/24 History Mirabegron [Myrbetriq] 25 mg PO QAM 11/27/22 09/13/24 History Mometasone/Formoterol [Dulera 200 2 puff INHALATION RT-BID PRN 11/27/22 09/13/24 History Mcg-5 Mcg Inhaler] Rosuvastatin Calcium 5 mg PO QAM 11/27/22 09/13/24 History glipiZIDE 5 mg PO BID 11/27/22 09/13/24 History Sodium Bicarbonate Tab 650 mg PO BID 08/21/24 09/13/24 History carvediloL [Coreg] 25 mg PO BID 08/21/24 09/13/24 History Ergocalciferol [Vitamin D2 (1250 1,250 mcg PO MO 09/11/24 09/13/24 History Mcg = 74495 Iu)] Allergies Allergy/AdvReac Type Severity Reaction Status Date / Time coconut Allergy Swelling Verified 09/21/24 08:35 fish oil Allergy Anaphylaxis Verified 09/21/24 08:35 iodine Allergy Anaphylaxis Verified 09/21/24 08:35 Latex, Natural Rubber Allergy Rash/Hives Verified 09/21/24 08:35 lavender (Lavandula Allergy Dyspnea Verified 09/21/24 08:35 angustifolia) Physical Exam Vitals: Vital Signs Temp Pulse Resp BP Pulse Ox 09/21/24 12:00 95 18 187/92 95 09/21/24 10:29 92 18 186/91 98 09/21/24 08:32 97.1 F L 86 18 188/91 99 Intake and Output 09/20/24 09/21/24 09/21/24 22:59 06:59 14:59 Other: Weight 72.575 kg GENERAL: The patient is alert and oriented x3, not in any acute distress. Well developed, well nourished. HEENT: Pupils are round and equally reacting to light. EOMI. No scleral icterus. No conjunctival pallor. Normocephalic, atraumatic. No pharyngeal erythema. No thyromegaly. CARDIOVASCULAR: S1 and S2 present. No murmurs, rubs, or gallops. PULMONARY: Chest is clear to auscultation, no wheezing , no crackles. ABDOMEN: Soft, nontender, nondistended, normoactive bowel sounds. No palpable organomegaly. MUSCULOSKELETAL: No joint swelling or deformity. EXTREMITIES: No cyanosis, clubbing, or pedal edema. --Right upper extremity is swollen, slightly warmer slightly tender and there is limitation of flexion of the fingers and elbow. Also there is erythema NEUROLOGICAL: Gross neurological examination did not reveal any focal deficits. SKIN: No rashes. no petechiae. Results CBC & Chem 7: 09/21/24 08:39 09/21/24 08:39 Labs: Abnormal Lab Results - Last 24 Hours (Table) 09/21/24 09/21/24 Range/Units 08:39 08:39 WBC 10.47 H (4.50-10.00) 10*3/uL RBC 3.41 L (4.10-5.20) 10*6/uL Hgb 10.4 L (12.0-15.0) g/dL Hct 30.6 L (37.2-46.3) % MPV 9.2 L (9.5-12.2) fL Immature Gran # 0.05 H (0.00-0.04) 10*3/uL Eosinophils # 0.41 H (0.04-0.35) 10*3/uL Chloride 114 H (98-107) mmol/L Carbon Dioxide 18 L (22-30) mmol/L BUN 69 H (7-17) mg/dL Creatinine 4.23 H (0.52-1.04) mg/dL Glucose 156 H (74-99) mg/dL Calcium 7.8 L (8.4-10.2) mg/dL C-Reactive Protein 2.1 H (<1.0) mg/dL Total Protein 5.2 L (6.3-8.2) g/dL Albumin 2.6 L (3.5-5.0) g/dL Assessment and Plan Assessment: Right upper extremity cellulitis after right upper extremity procedure, AV graft formation by vascular surgery team End-stage renal disease not on dialysis COPD/asthma Diabetes mellitus Hypertension Hyperlipidemia History of osteoarthritis Paroxysmal atrial fibrillation Hearing difficulty Plan: Continue with antibiotic Zosyn and IV vancomycin Vascular surgery team consult Infectious disease team consult Nephrology evaluation for end-stage renal disease Labs and medication were reviewed.. Continue same treatment. Continue with symptomatic treatment. Resume home medication. Monitor lytes and vitals. DVT and GI prophylaxis. Further recommendations depends on the clinical course of the patient DVT prophylaxis: Subcutaneous heparin GI Prophylaxis: Pepcid PT/OT: Pending Prognosis is guarded
--- NOTE | 2024-09-21 14:03 | P.GSCN ---
History of Present Illness Consult date: 09/21/24 Reason for Consult: Postop pain and swelling Requesting physician: Sil Escalante History of present illness: This is a pleasant 59-year-old female with a history of end-stage renal disease requiring hemodialysis. Patient had a right upper extremity loop forearm AV graft created in 09/13/[address] Panchal. Patient came in secondary to pain and swelling. She states that she has discomfort related to the swelling. She had noticed redness when she took off her bandages. Allergic reaction to the adhesive. Patient denies any fevers or chills. Has right IJ tunnel catheter in place. She had a CT of the right upper extremity without contrast that reported diffuse soft tissue superficial swelling, no underlying abscess is identified. Edema and infection could be considered. There is some low-density at the loop of the AV shunt. Consider the possibility of gas-forming organism. Venous duplex without any DVT. Mild leukocytosis. Patient is afebrile. Review of Systems A 14 point review systems was completed all pertinent positives and negatives as stated in the HPI. Past Medical History Past Medical History: Atrial Fibrillation, Asthma, COPD, Diabetes Mellitus, GERD/Reflux, Hearing Disorder / Deafness, Hyperlipidemia, Hypertension, Osteoarthritis (OA), Renal Disease Additional Past Medical History / Comment(s): Pt thinks she has sleep apnea-has not been dx. osteoporosis. stage 5 kidney failure. andrew leg pain with ambulation. has CGM- states blood sugars have been low, hasn't taken any insulin in over one month- advised pt to notified PCP. andrew [place]- no hearing aids. History of Any Multi-Drug Resistant Organisms: None Reported Past Surgical History: Section, Cholecystectomy, Hysterectomy, Orthopedic Surgery Additional Past Surgical History / Comment(s): hx left hip surgery with hardware- 4 pins & plate 4 yrs ago. Past Anesthesia/Blood Transfusion Reactions: No Reported Reaction Smoking Status: Former smoker - Past Family History Father Family Medical History: Diabetes Mellitus Mother Family Medical History: Diabetes Mellitus Medications and Allergies Home Medications Medication Instructions Recorded Confirmed Type Insulin Aspart [NovoLOG Flexpen] 10 units SQ AC-TID PRN 11/27/22 09/21/24 History Mirabegron [Myrbetriq] 25 mg PO DAILY 11/27/22 09/21/24 History Rosuvastatin Calcium 5 mg PO DAILY 11/27/22 09/21/24 History glipiZIDE 5 mg PO BID 11/27/22 09/21/24 History Sodium Bicarbonate Tab 650 mg PO BID 08/21/24 09/21/24 History Ergocalciferol [Vitamin D2 (1250 1,250 mcg PO MO 09/11/24 09/21/24 History Mcg = 97260 Iu)] Ibandronate Sodium [Boniva] 150 mg PO QMONTHLY 09/21/24 09/21/24 History Insulin Glargine,Hum.rec.anlog 15 - 20 units SQ HS 09/21/24 09/21/24 History [Lantus Solostar Pen] carvediloL [Coreg] 25 mg PO BID 09/21/24 09/21/24 History Allergies Allergy/AdvReac Type Severity Reaction Status Date / Time coconut Allergy Swelling Verified 09/21/24 13:07 fish oil Allergy Anaphylaxis Verified 09/21/24 13:07 iodine Allergy Anaphylaxis Verified 09/21/24 13:07 Latex, Natural Rubber Allergy Rash/Hives Verified 09/21/24 13:07 lavender (Lavandula Allergy Dyspnea Verified 09/21/24 13:07 angustifolia) Surgical - Exam Vital Signs Temp Pulse Resp BP Pulse Ox 97.1 F L 86 18 188/91 99 09/21/24 08:32 09/21/24 08:32 09/21/24 08:32 09/21/24 08:32 09/21/24 08:32 General appearance: The patient is alert, oriented, appears in no acute distress. HET: Head is normocephalic and atraumatic. Pupils are equal and reactive. Neck: Supple. Heart: Regular. Lungs: Equal expansion, normal respiratory effort. Abdomen: Soft, nontender, nondistended. Extremities: Right upper extremity swelling. Incisions are well-approximated without any drainage. There is surrounding erythema in the shape of previous adhesive dressing over incisions, dry skin. Slightly palpable graft, audible bruit. Palpable radial pulse. Sensorimotor intact. Full range of motion. Neurological: No focal deficits. Alert and oriented. Results - Labs 09/21/24 08:39 09/21/24 08:39 Abnormal Lab Results - Last 24 Hours (Table) 09/21/24 09/21/24 Range/Units 08:39 08:39 WBC 10.47 H (4.50-10.00) 10*3/uL RBC 3.41 L (4.10-5.20) 10*6/uL Hgb 10.4 L (12.0-15.0) g/dL Hct 30.6 L (37.2-46.3) % MPV 9.2 L (9.5-12.2) fL Immature Gran # 0.05 H (0.00-0.04) 10*3/uL Eosinophils # 0.41 H (0.04-0.35) 10*3/uL Chloride 114 H (98-107) mmol/L Carbon Dioxide 18 L (22-30) mmol/L BUN 69 H (7-17) mg/dL Creatinine 4.23 H (0.52-1.04) mg/dL Glucose 156 H (74-99) mg/dL Calcium 7.8 L (8.4-10.2) mg/dL C-Reactive Protein 2.1 H (<1.0) mg/dL Total Protein 5.2 L (6.3-8.2) g/dL Albumin 2.6 L (3.5-5.0) g/dL Diabetes panel 09/21/24 Range/Units 08:39 Sodium 140 (137-145) mmol/L Potassium 4.6 (3.5-5.1) mmol/L Chloride 114 H (98-107) mmol/L Carbon Dioxide 18 L (22-30) mmol/L BUN 69 H (7-17) mg/dL Creatinine 4.23 H (0.52-1.04) mg/dL Glucose 156 H (74-99) mg/dL Calcium 7.8 L (8.4-10.2) mg/dL AST 16 (14-36) U/L ALT 9 (4-34) U/L Alkaline Phosphatase 69 (38-126) U/L Total Protein 5.2 L (6.3-8.2) g/dL Albumin 2.6 L (3.5-5.0) g/dL Calcium panel 09/21/24 Range/Units 08:39 Calcium 7.8 L (8.4-10.2) mg/dL Albumin 2.6 L (3.5-5.0) g/dL Pituitary panel 09/21/24 Range/Units 08:39 Sodium 140 (137-145) mmol/L Potassium 4.6 (3.5-5.1) mmol/L Chloride 114 H (98-107) mmol/L Carbon Dioxide 18 L (22-30) mmol/L BUN 69 H (7-17) mg/dL Creatinine 4.23 H (0.52-1.04) mg/dL Glucose 156 H (74-99) mg/dL Calcium 7.8 L (8.4-10.2) mg/dL Adrenal panel 09/21/24 Range/Units 08:39 Sodium 140 (137-145) mmol/L Potassium 4.6 (3.5-5.1) mmol/L Chloride 114 H (98-107) mmol/L Carbon Dioxide 18 L (22-30) mmol/L BUN 69 H (7-17) mg/dL Creatinine 4.23 H (0.52-1.04) mg/dL Glucose 156 H (74-99) mg/dL Calcium 7.8 L (8.4-10.2) mg/dL Total Bilirubin 0.3 (0.2-1.3) mg/dL AST 16 (14-36) U/L ALT 9 (4-34) U/L Alkaline Phosphatase 69 (38-126) U/L Total Protein 5.2 L (6.3-8.2) g/dL Albumin 2.6 L (3.5-5.0) g/dL - Imaging Comments: CT right upper extremity independently reviewed by Dr. Panchal and findings are not likely gas-forming but secondary to recent surgical procedure. Assessment and Plan Assessment: 1. Right upper extremity swelling and pain secondary to recent loop forearm graft. To be expected secondary from venous congestion. 2. Right upper extremity allergic contact dermatitis secondary to adhesive, dressing 3. End-stage renal disease requiring hemodialysis Plan: 1. Elevate right upper extremity 2. Apply ASIA hose stocking to right upper extremity for light compression 3. May apply ice pack to right upper extremity for pain 4. Okay for oral pain medication as needed 5. May apply some Vaseline surrounding incision to dry irritated skin 6. There is no indication for any vascular surgical intervention 7. Patient has appointment for ultrasound of the right upper extremity and follow-up 09/26/2024 8. Patient is cleared for discharge from vascular surgery Thank you for this consultation, we will sign off at this time. The impression and plan of care has been dictated as directed. Dr. Brian Hernandez performed a history and examination of this patient, discussed the same with the dictator. I agree with the dictator's note ,documented as a scribe. Any additional findings or plans will be noted.
[2024-09-21 15:20] LABS: Erythrocyte Sedimentation Rate 44 mm/Hr (0-30)
[2024-09-21] MEDS: PIPERACILLIN-TAZOBACTAM 3.375 GM in SODIUM CHLORIDE 0.9% 100 ML IVPB SCH (16:44)
[2024-09-21] MEDS: MORPHINE SULFATE 4 MG/ML SYRINGE IV PRN (16:44)
[2024-09-21] MEDS: carvediloL 12.5 MG TAB PO SCH (18:21)
[2024-09-21] MEDS: glipiZIDE 5 MG TAB PO SCH (20:20)
[2024-09-21] MEDS ORDERED: carvediloL 12.5 MG TAB PO SCH (21:00)
--- NOTE | 2024-09-21 22:49 | P.CONS ---
History of Present Illness - Reason for Consult Consult date: 09/21/24 Cellulitis Requesting physician: Brandan E Sheet - Chief Complaint Right arm pain swelling redness x few days - History of Present Illness Patient is a 59-year-old female with a past medical history significant for diabetes mellitus hypertension hyperlipidemia reflux atrial fibrillation end-stage renal disease and currently started on dialysis, patient did have right IJ tunneled catheter, patient did have right upper extremity loop forearm AV graft created on 09/13/[address] Panchal patient now presenting to the hospital concerning for increasing pain swelling and redness to the right upper extremity that apparently has been getting worse over the last few days patient describing pain to be sharp moderate to severe intensity without radiation with associated swelling and redness denies significant drainage patient denies high-grade fever or chills on presentation to the hospital the patient was afebrile no fever have been called subsequently patient was mildly tachycardic but not hypotensive or hypoxic patient did have a white count of 10.47 did have elevated BUN and creatinine liver enzymes are normal blood culture has been obtained patient also have upper extremities CT diffuse soft tissue superficial swelling no underlying abscesses identified edema and infection could be considered and there was some low-density at the loop of the avulsion consider possible gas-forming organism venous Doppler negative for DVT patient was started on vancomycin and Zosyn infectious disease was consulted for further management of antibiotic therapy Review of Systems Positive point and negatives has been mentioned in the HPI, complete review of systems was performed and all other systems are negative Past Medical History Past Medical History: Atrial Fibrillation, Asthma, COPD, Diabetes Mellitus, GERD/Reflux, Hearing Disorder / Deafness, Hyperlipidemia, Hypertension, Osteoarthritis (OA), Renal Disease Additional Past Medical History / Comment(s): Pt thinks she has sleep apnea-has not been dx. osteoporosis. stage 5 kidney failure. andrew leg pain with ambulation. has CGM- states blood sugars have been low, hasn't taken any insulin in over one month- advised pt to notified PCP. andrew [facility]- no hearing aids. History of Any Multi-Drug Resistant Organisms: None Reported Past Surgical History: Section, Cholecystectomy, Hysterectomy, Orthopedic Surgery Additional Past Surgical History / Comment(s): hx left hip surgery with hardware- 4 pins & plate 4 yrs ago. Past Anesthesia/Blood Transfusion Reactions: No Reported Reaction Smoking Status: Former smoker - Past Family History Father Family Medical History: Diabetes Mellitus Mother Family Medical History: Diabetes Mellitus Medications and Allergies Home Medications Medication Instructions Recorded Confirmed Type Insulin Aspart [NovoLOG Flexpen] 10 units SQ AC-TID PRN 11/27/22 09/21/24 History Mirabegron [Myrbetriq] 25 mg PO DAILY 11/27/22 09/21/24 History Rosuvastatin Calcium 5 mg PO DAILY 11/27/22 09/21/24 History glipiZIDE 5 mg PO BID 11/27/22 09/21/24 History Sodium Bicarbonate Tab 650 mg PO BID 08/21/24 09/21/24 History Ergocalciferol [Vitamin D2 (1250 1,250 mcg PO MO 09/11/24 09/21/24 History Mcg = 26350 Iu)] Ibandronate Sodium [Boniva] 150 mg PO QMONTHLY 09/21/24 09/21/24 History Insulin Glargine,Hum.rec.anlog 15 - 20 units SQ HS 09/21/24 09/21/24 History [Lantus Solostar Pen] carvediloL [Coreg] 25 mg PO BID 09/21/24 09/21/24 History Allergies Allergy/AdvReac Type Severity Reaction Status Date / Time coconut Allergy Swelling Verified 09/21/24 13:07 fish oil Allergy Anaphylaxis Verified 09/21/24 13:07 iodine Allergy Anaphylaxis Verified 09/21/24 13:07 Latex, Natural Rubber Allergy Rash/Hives Verified 09/21/24 13:07 lavender (Lavandula Allergy Dyspnea Verified 09/21/24 13:07 angustifolia) Physical Exam Vitals: Vital Signs Temp Pulse Resp BP Pulse Ox 09/21/24 12:00 95 18 187/92 95 09/21/24 10:29 92 18 186/91 98 09/21/24 08:32 97.1 F L 86 18 188/91 99 Intake and Output 09/21/24 09/21/24 09/21/24 06:59 14:59 22:59 Other: Weight 72.575 kg GENERAL DESCRIPTION: Middle-age female lying in bed, no distress. No tachypnea or accessory muscle of respiration use. HEENT: Shows Pallor , no scleral icterus. Oral mucous membrane is dry. NECK: Trachea central, no thyromegaly. LUNGS: Unlabored breathing. Clear to auscultation anteriorly. No wheeze or crackle. HEART: S1, S2, regular rate and rhythm. No loud murmur ABDOMEN: Soft, no tenderness , guarding or rigidity, no organomegaly EXTREMITIES: Right upper extremity did have swelling diffuse redness no significant drainage was noticed. SKIN: No rash, no masses palpable. NEUROLOGICAL: The patient is awake, alert, oriented x3, mood and affect normal. Results CBC & Chem 7: 09/21/24 08:39 09/21/24 08:39 Labs: Abnormal Lab Results - Last 24 Hours (Table) 09/21/24 09/21/24 Range/Units 08:39 08:39 WBC 10.47 H (4.50-10.00) 10*3/uL RBC 3.41 L (4.10-5.20) 10*6/uL Hgb 10.4 L (12.0-15.0) g/dL Hct 30.6 L (37.2-46.3) % MPV 9.2 L (9.5-12.2) fL Immature Gran # 0.05 H (0.00-0.04) 10*3/uL Eosinophils # 0.41 H (0.04-0.35) 10*3/uL Chloride 114 H (98-107) mmol/L Carbon Dioxide 18 L (22-30) mmol/L BUN 69 H (7-17) mg/dL Creatinine 4.23 H (0.52-1.04) mg/dL Glucose 156 H (74-99) mg/dL Calcium 7.8 L (8.4-10.2) mg/dL C-Reactive Protein 2.1 H (<1.0) mg/dL Total Protein 5.2 L (6.3-8.2) g/dL Albumin 2.6 L (3.5-5.0) g/dL Assessment and Plan (1) Right arm cellulitis Current Visit: Yes Status: Acute Code(s): L03.113 - CELLULITIS OF RIGHT UPPER LIMB SNOMED Code(s): 99150697427037781 (2) Pain and swelling of right upper extremity Current Visit: Yes Status: Acute Code(s): M79.601 - PAIN IN RIGHT ARM; M79.89 - OTHER SPECIFIED SOFT TISSUE DISORDERS SNOMED Code(s): 882544109 Plan: 1patient presented to hospital with right upper extremity pain swelling and redness in this patient who did have significant abnormality seen on the CT with recent right upper extremity AV loop graft placement for dialysis concerning for cellulitis and will need to cover for the gram-positive as well as gram-negative pathogen 2-patient to continue with Zosyn we will switch vancomycin to daptomycin while waiting for the culture to finalize Question concern answered We will follow on clinical condition and cultures to further adjust medication if needed Thank you for this consultation we will follow the patient along with you Dictation was produced using [employer]ync dictation software. please excuse any grammatical, word or spelling errors. Time with Patient: Greater than 30
[2024-09-21 23:05] LABS: Glucose,Whole Blood 201 mg/dL (70-110)
[2024-09-22] MEDS: PANTOPRAZOLE 40 MG/10 ML VIAL IVP SCH (00:16)
[2024-09-22] MEDS: PIPERACILLIN-TAZOBACTAM 3.375 GM in SODIUM CHLORIDE 0.9% 100 ML IVPB SCH (04:57)
[2024-09-22 06:26] LABS: Glucose,Whole Blood 149 mg/dL (70-110)
[2024-09-22] MEDS ORDERED: PANTOPRAZOLE 40 MG/10 ML VIAL IV SCH (09:00)
[2024-09-22] MEDS: hydrALAZINE HCL 50 MG TAB PO PRN (09:04)
[2024-09-22] MEDS: HYDROcodone/APAP 5-325MG 1 EACH TAB PO PRN (09:05)
[2024-09-22 10:58] LABS: Glucose,Whole Blood 141 mg/dL (70-110)
--- NOTE | 2024-09-22 11:15 | P.NPCON ---
History of Present Illness - Reason for Consult Consult date: 09/22/24 chronic renal failure - History of Present Illness 59 years old female with past medical history of CKD stage 5 , not on dialysis Presented to ED c/o right arm redness and swelling after she had the procedure for graft creation with Dr. Panchal 1 week ago , she noticed pus coming out as she took off the bandage. she denied any other complaints. she was planning to see Dr. Son in clinic on Tuesday, she is still making urine, no uremic symptoms. Venous ultrasound of the right upper extremity ruled out DVT but there is d iffuse soft tissue swelling with some density at the loop consider gas-forming microorganism, she is admitted for management of cellulitis, started on vancomycin and zosyn, ID consulted, switched vancomycin to daptomycin. Past Medical History Past Medical History: Atrial Fibrillation, Asthma, COPD, Diabetes Mellitus, GERD/Reflux, Hearing Disorder / Deafness, Hyperlipidemia, Hypertension, Osteoarthritis (OA), Renal Disease Additional Past Medical History / Comment(s): Pt thinks she has sleep apnea-has not been dx. osteoporosis. stage 5 kidney failure. andrew leg pain with ambulation. has CGM- states blood sugars have been low, hasn't taken any insulin in over one month- advised pt to notified PCP. andrew [place]- no hearing aids. History of Any Multi-Drug Resistant Organisms: None Reported Past Surgical History: Section, Cholecystectomy, Hysterectomy, Orthopedic Surgery Additional Past Surgical History / Comment(s): hx left hip surgery with hardwar e- 4 pins & plate 4 yrs ago. Past Anesthesia/Blood Transfusion Reactions: No Reported Reaction Past Psychological History: Depression Smoking Status: Former smoker Past Alcohol Use History: None Reported Additional Past Alcohol Use History / Comment(s): started smoking at age 14, 1ppd, quit 30 years ago. Past Drug Use History: None Reported - Past Family History Father Family Medical History: Diabetes Mellitus Mother Family Medical History: Diabetes Mellitus Medications and Allergies Home Medications Medication Instructions Recorded Confirmed Type Insulin Aspart [NovoLOG Flexpen] 10 units SQ AC-TID PRN 11/27/22 09/21/24 History Mirabegron [Myrbetriq] 25 mg PO DAILY 11/27/22 09/21/24 History Rosuvastatin Calcium 5 mg PO DAILY 11/27/22 09/21/24 History glipiZIDE 5 mg PO BID 11/27/22 09/21/24 History Sodium Bicarbonate Tab 650 mg PO BID 08/21/24 09/21/24 History Ergocalciferol [Vitamin D2 (1250 1,250 mcg PO MO 09/11/24 09/21/24 History Mcg = 15695 Iu)] Ibandronate Sodium [Boniva] 150 mg PO QMONTHLY 09/21/24 09/21/24 History Insulin Glargine,Hum.rec.anlog 15 - 20 units SQ HS 09/21/24 09/21/24 History [Lantus Solostar Pen] carvediloL [Coreg] 25 mg PO BID 09/21/24 09/21/24 History Allergies Allergy/AdvReac Type Severity Reaction Status Date / Time coconut Allergy Swelling Verified 09/21/24 13:07 fish oil Allergy Anaphylaxis Verified 09/21/24 13:07 iodine Allergy Anaphylaxis Verified 09/21/24 13:07 Latex, Natural Rubber Allergy Rash/Hives Verified 09/21/24 13:07 lavender (Lavandula Allergy Dyspnea Verified 09/21/24 13:07 angustifolia) Physical Exam Vitals: Vital Signs Temp Pulse Pulse Resp BP BP BP 09/22/24 00:35 97.7 F 100 18 174/94 09/22/24 00:05 16 09/21/24 23:15 97.5 F L 91 16 168/86 09/21/24 22:41 97.8 F 92 16 181/94 09/21/24 22:05 97.8 F 94 16 170/77 09/21/24 21:16 91 16 168/87 09/21/24 21:05 90 16 168/82 09/21/24 20:57 94 16 169/95 09/21/24 20:48 91 16 170/100 09/21/24 20:36 94 16 181/100 09/21/24 20:13 91 179/103 09/21/24 20:00 93 194/101 09/21/24 19:23 191/105 09/21/24 19:12 97.8 F 94 18 09/21/24 18:00 90 18 187/101 09/21/24 17:00 90 18 184/94 09/21/24 16:00 92 18 203/105 09/21/24 14:00 90 18 188/104 09/21/24 12:00 95 18 187/92 Pulse Ox 09/22/24 00:35 97 09/22/24 00:05 09/21/24 23:15 98 09/21/24 22:41 99 09/21/24 22:05 99 09/21/24 21:16 98 09/21/24 21:05 99 09/21/24 20:57 99 09/21/24 20:48 98 09/21/24 20:36 99 09/21/24 20:13 09/21/24 20:00 09/21/24 19:23 09/21/24 19:12 98 09/21/24 18:00 98 09/21/24 17:00 98 09/21/24 16:00 98 09/21/24 14:00 98 09/21/24 12:00 95 Intake and Output 09/21/24 09/22/24 09/22/24 22:59 06:59 14:59 Other: # Voids 2 Weight 72.575 kg Patient is awake, comfortable, no acute distress Examination of the heart S1 and S2 Examination of the lungs bilateral breath sounds are heard Abdomen is soft nontender Examination lower extremities shows no significant edema, right UE is wrapped [employer] exam grossly intact Results - Lab Results Most recent lab results Calcium 7.8 mg/dL (8.4-10.2) L 09/21/24 08:39 09/21/24 08:39 09/21/24 08:39 Assessment and Plan Assessment: 1. chronic kidney disease stage 5, not on hemodialysis , no fluid overload, no uremic symptoms, stable renal function and electrolytes within normal 2. right UE cellulitis post loop AVG placement , started on antibiotics , ID following , DVT was ruled out , surgery team evaluated the patient , op UE US on 09/26 3. Anemia of CKD, stable Hb at goal 4. metabolic acidosis due to advanced CKD Plan: continue IV antibiotics per ID no urgent indication to start renal replacement therapy start sodium bicarbonate PO BID check CK level while on daptomycin Thank you for this consultation, will continue to follow
[2024-09-22] MEDS ORDERED: VANCOMYCIN 1,250 MG in SODIUM CHLORIDE 0.9% 250 ML IVPB ONE (12:00)
[2024-09-22] MEDS: METOCLOPRAMIDE 5 MG/ML 2 ML VIAL IVP PRN (13:42)
[2024-09-22] MEDS: SODIUM BICARBONATE TAB 650 MG TAB PO SCH (13:44)
--- NOTE | 2024-09-22 14:23 | P.PN ---
Subjective Progress Note Date: 09/22/24 Patient seen and examined. No complaints. Mild right upper extremity pain due to swelling. Denies any issues otherwise Objective - Vital Signs Vital signs: Vital Signs Temp 97.7 F 09/22/24 00:35 Pulse 100 09/22/24 00:35 Resp 18 09/22/24 00:35 BP 174/94 09/22/24 00:35 Pulse Ox 97 09/22/24 00:35 FiO2 Intake & Output 09/21/24 09/22/24 09/22/24 18:59 06:59 18:59 Weight 72.575 kg 72.575 kg Other: # Voids 2 - Exam General appearance: The patient is alert, oriented, appears in no acute distress. HET: Head is normocephalic and atraumatic. Pupils are equal and reactive. Neck: Supple. Heart: Regular. Lungs: Equal expansion, normal respiratory effort. Abdomen: Soft, nontender, nondistended. Extremities: Right upper extremity swelling. Incisions are well-approximated without any drainage. There is surrounding erythema in the shape of previous adhesive dressing over incisions, dry skin. Slightly palpable graft, audible bruit. Palpable radial pulse. Sensorimotor intact. Full range of motion. Neurological: No focal deficits. Alert and oriented. - Labs CBC & Chem 7: 09/21/24 08:39 09/21/24 08:39 Labs: Abnormal Lab Results - Last 24 Hours (Table) 09/21/24 09/21/24 09/22/24 Range/Units 08:39 23:04 06: ESR 44 H (0-30) mm/Hr POC Glucose (mg/dL) 201 H 149 H (70-110) mg/dL 09/22/24 Range/Units 10:57 ESR (0-30) mm/Hr POC Glucose (mg/dL) 141 H (70-110) mg/dL Assessment and Plan Assessment: 1. Right upper extremity swelling and pain secondary to recent loop forearm graft. To be expected secondary from venous congestion. 2. Right upper extremity allergic contact dermatitis secondary to adhesive, dressing 3. End-stage renal disease requiring hemodialysis Plan: 1. Elevate right upper extremity 2. Apply ASIA hose stocking to right upper extremity for light compression 3. May apply ice pack to right upper extremity for pain 4. Okay for oral pain medication as needed 5. There is no indication for any vascular surgical intervention 7. Patient has appointment for ultrasound of the right upper extremity and fo llow-up 09/26/2024
[2024-09-22 16:43] LABS: Glucose,Whole Blood 174 mg/dL (70-110)
--- NOTE | 2024-09-22 18:35 | P.PN ---
Subjective This is a pleasant 59 years old female with past medical history of multiple medical problems including end-stage renal disease not on dialysis Presents of right arm redness and swelling after she had the procedure for graft creation with Dr. Panchal about 6 to 7 days ago followed by swelling redness warmth and tenderness which was gradually getting worse Denies chest pain or dyspnea. No other specific GI/ symptoms. She makes little urine. No headache dizziness weakness numbness. She denies smoking alcohol or illicit drugs. She is afebrile. Blood pressure elevated 186/91. She has not WBC of 10.4 hemoglobin 10.4 and creatinine 4.2 rest of labs reviewed looks unremarkable. Venous ultrasound of the right upper extremity is negative for DVT but there is diffuse soft tissue swelling with some density at the loop consider gas-forming microorganism 09/22 Patient right upper extremity discomfort patient has compression sleeve in place. She is still complaining from some pain in the right upper extremity. Currently being covered by the IV daptomycin Also patient complaining from significant nausea that prevents him from eating today despite taking Zofran. Reglan is added Vitals are stable and afebrile WBC 10.4, hemoglobin 10.4 and creatinine 4.2. Patient followed closely by nephrology team for continued hemodialysis ID team recommendation is reviewed. Blood culture still pending Active Medications Generic Name Dose Route Start Last Admin Trade Name Freq PRN Reason Stop Dose Admin Acetaminophen 650 mg 09/21/24 11:05 Acetaminophen Tab 325 Mg Tab PO Q6HR PRN Mild Pain or Fever > 100.5 Hydrocodone Bitart/Acetaminophen 1 each 09/21/24 11:05 09/22/24 13:44 Hydrocodone/Apap 5-325mg 1 Each Tab PO 1 each Q4HR PRN Administration Moderate Pain (Scale 4 to 6) Carvedilol 25 mg 09/21/24 18:09 09/22/24 16:31 Carvedilol 12.5 Mg Tab PO 25 mg BID-W/MEALS HOLLAND Administration Glipizide 5 mg 09/21/24 21:00 09/22/24 09:04 Glipizide 5 Mg Tab PO 5 mg BID HOLLAND Administration Hydralazine HCl 50 mg 09/21/24 23:25 09/22/24 09:04 Hydralazine Hcl 50 Mg Tab PO 50 mg Q6HR PRN Administration Blood Pressure - High Daptomycin 450 mg/ Sodium 50 mls @ 100 mls/hr 09/22/24 09:00 09/22/24 10:02 Chloride IVPB 100 mls/hr Q48H HOLLAND Administration Protocol Piperacillin Sod/Tazobactam 100 mls @ 25 mls/hr 09/22/24 05:00 09/22/24 16:31 Sod 3.375 gm/ Sodium Chloride IVPB 25 mls/hr Q12H HOLLAND Administration Protocol Metoclopramide HCl 5 mg 09/22/24 13:27 09/22/24 13:42 Metoclopramide 5 Mg/Ml 2 Ml Vial IVP 5 mg Q6HR PRN Administration Nausea And Vomiting Morphine Sulfate 4 mg 09/21/24 11:05 09/22/24 01:04 Morphine Sulfate 4 Mg/Ml Syringe IV 4 mg Q4HR PRN Administration Severe Pain (Scale 7 to 10) Naloxone HCl 0.2 mg 09/21/24 11:05 Naloxone 0.4 Mg/Ml 1 Ml Vial IV Q2M PRN Opioid Reversal Ondansetron HCl 4 mg 09/21/24 11:05 09/22/24 16:44 Ondansetron 4 Mg/2 Ml Vial IVP 4 mg Q8HR PRN Administration Nausea And Vomiting Pantoprazole Sodium 40 mg 09/21/24 23:45 09/22/24 09:04 Pantoprazole 40 Mg/10 Ml Vial IVP 40 mg BID HOLLAND Administration Sodium Bicarbonate 650 mg 09/22/24 11:15 09/22/24 13:44 Sodium Bicarbonate Tab 650 Mg Tab PO 650 mg BID HOLLAND Administration Objective - Vital Signs Vital signs: Vital Signs Temp 97.7 F 09/22/24 00:35 Pulse 100 09/22/24 00:35 Resp 18 09/22/24 00:35 BP 174/94 09/22/24 00:35 Pulse Ox 97 09/22/24 00:35 FiO2 Intake & Output 09/21/24 09/22/24 09/22/24 18:59 06:59 18:59 Weight 72.575 kg 72.575 kg Other: # Voids 2 - Exam GENERAL: The patient is alert and oriented x3, not in any acute distress. Well developed, well nourished. HEENT: Pupils are round and equally reacting to light. EOMI. No scleral icterus. No conjunctival pallor. Normocephalic, atraumatic. No pharyngeal erythema. No thyromegaly. CARDIOVASCULAR: S1 and S2 present. No murmurs, rubs, or gallops. PULMONARY: Chest is clear to auscultation, no wheezing , no crackles. ABDOMEN: Soft, nontender, nondistended, normoactive bowel sounds. No palpable organomegaly. MUSCULOSKELETAL: No joint swelling or deformity. EXTREMITIES: No cyanosis, clubbing, or pedal edema. --Right upper extremity is swollen, slightly warmer slightly tender and there is limitation of flexion of the fingers and elbow. Also there is erythema NEUROLOGICAL: Gross neurological examination did not reveal any focal deficits. SKIN: No rashes. no petechiae. - Labs CBC & Chem 7: 09/21/24 08:39 09/21/24 08:39 Labs: Abnormal Lab Results - Last 24 Hours (Table) 09/21/24 09/21/24 09/22/24 Range/Units 08:39 23:04 06:25 ESR 44 H (0-30) mm/Hr POC Glucose (mg/dL) 201 H 149 H (70-110) mg/dL Assessment and Plan Assessment: Right upper extremity cellulitis after right upper extremity procedure, AV graft formation by vascular surgery team End-stage renal disease not on dialysis Intractable nausea and vomiting most likely secondary to gastritis COPD/asthma Diabetes mellitus Hypertension Hyperlipidemia History of osteoarthritis Paroxysmal atrial fibrillation Hearing difficulty Plan: Continue with antibiotic Zosyn and IV vancomycin Vascular surgery team consult Infectious disease team consult Zofran and Reglan Nephrology evaluation for end-stage renal disease Labs and medication were reviewed.. Continue same treatment. Continue with symptomatic treatment. Resume home medication. Monitor lytes and vitals. DVT and GI prophylaxis. Further recommendations depends on the clinical course of the patient DVT prophylaxis: Subcutaneous heparin GI Prophylaxis: Pepcid PT/OT: Pending Prognosis is guarded
--- NOTE | 2024-09-22 20:16 | P.PN ---
Subjective Progress Note Date: 09/22/24 Principal diagnosis: Reason for follow-up with right upper extremity cellulitis Patient is a 59-year-old female with a past medical history significant for diabetes mellitus hypertension hyperlipidemia reflux atrial fibrillation end-stage renal disease and currently started on dialysis, patient did have right IJ tunneled catheter, patient did have right upper extremity loop forearm AV graft created on 09/13/2024, presented to hospital with a right upper extremity graft site swelling redness and drainage she was admitted for concern for possible cellulitis. On today's evaluation that is 09/23/2023, patient did have a temperature of 97.7 F this morning and denies having any chills, patient is on room air and breathing comfortably no chest pain or cough, the patient did not have any nausea vomiting abdominal pain or any diarrhea pain to the right upper extremity slightly decreased in intensity. No new labs has been obtained today blood cultures are pending Objective - Vital Signs Vital signs: Vital Signs Temp 97.7 F 09/22/24 00:35 Pulse 100 09/22/24 00:35 Resp 18 09/22/24 00:35 BP 174/94 09/22/24 00:35 Pulse Ox 97 09/22/24 00:35 FiO2 Intake & Output 09/21/24 09/22/24 09/22/24 18:59 06:59 18:59 Weight 72.575 kg 72.575 kg Other: # Voids 2 - Exam GENERAL DESCRIPTION: Middle-age female lying in bed in no distress RESPIRATORY SYSTEM: Unlabored breathing , decreased breath sounds at bases HEART: S1 S2 regular rate and rhythm , ABDOMEN: Soft , no tenderness EXTREMITIES: Right upper extremity graft site did have erythema no significant drainage - Labs CBC & Chem 7: 09/21/24 08:39 09/21/24 08:39 Labs: Abnormal Lab Results - Last 24 Hours (Table) 09/21/24 09/21/24 09/22/24 Range/Units 08:39 23:04 06: ESR 44 H (0-30) mm/Hr POC Glucose (mg/dL) 201 H 149 H (70-110) mg/dL 09/22/24 Range/Units 10:57 ESR (0-30) mm/Hr POC Glucose (mg/dL) 141 H (70-110) mg/dL Assessment and Plan (1) Right arm cellulitis Current Visit: Yes Status: Acute Code(s): L03.113 - CELLULITIS OF RIGHT UPPER LIMB SNOMED Code(s): 18170127551780816 (2) Pain and swelling of right upper extremity Current Visit: Yes Status: Acute Code(s): M79.601 - PAIN IN RIGHT ARM; M79.89 - OTHER SPECIFIED SOFT TISSUE DISORDERS SNOMED Code(s): 906511804 Plan: 1patient presented to hospital with right upper extremity pain swelling and redness in this patient who did have significant abnormality seen on the CT with recent right upper extremity AV loop graft placement for dialysis concerning for cellulitis and will need to cover for the gram-positive as well as gram-negative pathogen 2-patient t currently being treated with Zosyn and daptomycin while waiting for the culture to finalize, may benefit from a low-dose topical steroid to the erythema with concern for possible contact dermatitis discussed with the surgeon Dictation was produced using [employer] dictation software. please excuse any grammatical, word or spelling errors. Time with Patient: Less than 30
[2024-09-22 20:24] LABS: Glucose,Whole Blood 167 mg/dL (70-110)
[2024-09-23 06:34] LABS: Glucose,Whole Blood 76 mg/dL (70-110)
[2024-09-23 09:14] LABS: African American GFR (CKD) 7 (>60 ml/min/1.73 sqM); Anion Gap 9 mmol/L; Blood Urea Nitrogen 74 mg/dL (7-17); Calcium 7.8 mg/dL (8.4-10.2); Carbon Dioxide 15 mmol/L (22-30); Chloride 113 mmol/L (98-107); Glucose 126 mg/dL (74-99); Non-African American GFR(CKD) 6 (>60 ml/min/1.73 sqM); Potassium 4.4 mmol/L (3.5-5.1); Sodium 137 mmol/L (137-145)
--- NOTE | 2024-09-23 10:24 | P.PN ---
Subjective Progress Note Date: 09/23/24 following for CKD stage 5 patient seen today, she denied any new complaints, she feels her arm is better t yoselyn getting IV daptomycin and zosyn making urine , not accurety charted cr. trend up to 6.6, no urmic symptoms, not on O2 therapy noted the patient has a right IJ tunneled dialysis catheter, placed mid August 2024, not been used Objective - Vital Signs Vital signs: Vital Signs Temp 97.6 F 09/23/24 07:02 Pulse 88 09/23/24 07:02 Resp 18 09/23/24 07:02 BP 125/67 09/23/24 07:02 Pulse Ox 93 L 09/23/24 07:02 FiO2 Intake & Output 09/22/24 09/23/24 09/23/24 18:59 06:59 18:59 Intake Total 240 Balance 240 Intake: Oral 240 Other: # Voids 2 3 - Exam Patient is awake, comfortable, no acute distress Examination of the heart S1 and S2 Examination of the lungs bilateral breath sounds are heard, right IJ Tunneled HD catheter Abdomen is soft nontender Examination lower extremities shows no significant edema, right UE is wrapped [employer] exam grossly intact - Labs CBC & Chem 7: 09/21/24 08:39 09/23/24 08:12 Labs: Abnormal Lab Results - Last 24 Hours (Table) 09/22/24 09/22/24 09/22/24 Range/Units 10:57 16:41 20:23 Chloride (98-107) mmol/L Carbon Dioxide (22-30) mmol/L BUN (7-17) mg/dL Creatinine (0.52-1.04) mg/dL Glucose (74-99) mg/dL POC Glucose (mg/dL) 141 H 174 H 167 H (70-110) mg/dL Calcium (8.4-10.2) mg/dL 09/23/24 Range/Units 08:12 Chloride 113 H (98-107) mmol/L Carbon Dioxide 15 L (22-30) mmol/L BUN 74 H (7-17) mg/dL Creatinine 6.61 H (0.52-1.04) mg/dL Glucose 126 H (74-99) mg/dL POC Glucose (mg/dL) (70-110) mg/dL Calcium 7.8 L (8.4-10.2) mg/dL Microbiology - Last 24 Hours (Table) 09/21/24 09:17 Blood Culture - Preliminary Blood Assessment and Plan Assessment: 1. chronic kidney disease stage 5, not on hemodialysis , no fluid overload, no uremic symptoms, stable renal function and electrolytes within normal , has right IJ tunneled HD catheter (not used) , right UE loop AVG 2. right UE cellulitis post loop AVG placement , started on antibiotics , ID following , DVT was ruled out , surgery team evaluated the patient , op UE US on 09/26 3. Anemia of CKD, stable Hb at goal 4. metabolic acidosis due to advanced CKD Plan: continue IV antibiotics per ID no urgent indication to start renal replacement therapy continue sodium bicarbonate PO BID supplement check CK level while on daptomycin
[2024-09-23 11:38] LABS: African American GFR (CKD) 7 (>60 ml/min/1.73 sqM); Anion Gap 8 mmol/L; Blood Urea Nitrogen 78 mg/dL (7-17); Calcium 7.6 mg/dL (8.4-10.2); Carbon Dioxide 17 mmol/L (22-30); Chloride 113 mmol/L (98-107); Glucose 125 mg/dL (74-99); Non-African American GFR(CKD) 6 (>60 ml/min/1.73 sqM); Potassium 4.2 mmol/L (3.5-5.1); Sodium 138 mmol/L (137-145)
[2024-09-23 12:07] LABS: Glucose,Whole Blood 120 mg/dL (70-110)
[2024-09-23 13:24] LABS: Appearance,Urine Cloudy (Clear); Bacteria,Urine Rare /hpf; Bilirubin,Urine Negative (Negative); Blood,Urine Trace (Negative); Color,Urine Colorless; Glucose,Urine (UA) 3+ (Negative); Ketones,Urine Negative (Negative); Leukocyte Esterase,Urine Trace (Negative); Mucus,Urine Rare /hpf; Nitrite,Urine Negative (Negative); PH, Urine 7.5 (5.0-8.0); Protein,Urine 3+ (Negative); RBC,Urine 2 /hpf (0-5); Specific Gravity,Urine 1.019 (1.001-1.035); Squamous Epithelial Cell,Urine 17 /hpf (0-4); Urobilinogen,Urine <2.0 mg/dL (<2.0); WBC,Urine 20 /hpf (0-5)
[2024-09-23 16:38] LABS: Glucose,Whole Blood 110 mg/dL (70-110)
[2024-09-23 20:26] LABS: Glucose,Whole Blood 164 mg/dL (70-110)
--- NOTE | 2024-09-24 00:38 | P.PN ---
Subjective This is a pleasant 59 years old female with past medical history of multiple medical problems including end-stage renal disease not on dialysis Presents of right arm redness and swelling after she had the procedure for graft creation with Dr. Panchal about 6 to 7 days ago followed by swelling redness warmth and tenderness which was gradually getting worse Denies chest pain or dyspnea. No other specific GI/ symptoms. She makes little urine. No headache dizziness weakness numbness. She denies smoking alcohol or illicit drugs. She is afebrile. Blood pressure elevated 186/91. She has not WBC of 10.4 hemoglobin 10.4 and creatinine 4.2 rest of labs reviewed looks unremarkable. Venous ultrasound of the right upper extremity is negative for DVT but there is diffuse soft tissue swelling with some density at the loop consider gas-forming microorganism 09/22 Patient right upper extremity discomfort patient has compression sleeve in place. She is still complaining from some pain in the right upper extremity. Currently being covered by the IV daptomycin Also patient complaining from significant nausea that prevents him from eating today despite taking Zofran. Reglan is added Vitals are stable and afebrile WBC 10.4, hemoglobin 10.4 and creatinine 4.2. Patient followed closely by nephrology team for continued hemodialysis ID team recommendation is reviewed. Blood culture still pending 09/23 Patient was vomiting earlier currently stopped, she ate better no abdominal pain Right arm swelling and erythema is better molder machine tender On IV daptomycin and Zosyn Objective - Vital Signs Vital signs: Vital Signs Temp 98.0 F 09/23/24 19:10 Pulse 84 09/23/24 19:10 Resp 16 09/23/24 19:10 BP 118/57 09/23/24 19:10 Pulse Ox 94 L 09/23/24 19:10 FiO2 Intake & Output 09/23/24 09/23/24 09/24/24 06:59 18:59 06:59 Intake Total 240 Balance 240 Intake: Oral 240 Other: # Voids 3 2 - Exam GENERAL: The patient is alert and oriented x3, not in any acute distress. Well developed, well nourished. HEENT: Pupils are round and equally reacting to light. EOMI. No scleral icterus. No conjunctival pallor. Normocephalic, atraumatic. No pharyngeal erythema. No thyromegaly. CARDIOVASCULAR: S1 and S2 present. No murmurs, rubs, or gallops. PULMONARY: Chest is clear to auscultation, no wheezing , no crackles. ABDOMEN: Soft, nontender, nondistended, normoactive bowel sounds. No palpable organomegaly. MUSCULOSKELETAL: No joint swelling or deformity. EXTREMITIES: No cyanosis, clubbing, or pedal edema. --Right upper extremity is swollen, slightly warmer slightly tender and there is limitation of flexion of the fingers and elbow. Also there is erythema NEUROLOGICAL: Gross neurological examination did not reveal any focal deficits. SKIN: No rashes. no petechiae. - Labs CBC & Chem 7: 09/21/24 08:39 09/23/24 10:44 Labs: Abnormal Lab Results - Last 24 Hours (Table) 09/23/24 09/23/24 09/23/24 Range/Units 08:12 10:44 12:06 Chloride 113 H 113 H (98-107) mmol/L Carbon Dioxide 15 L 17 L (22-30) mmol/L BUN 74 H 78 H (7-17) mg/dL Creatinine 6.61 H 6.71 H (0.52-1.04) mg/dL Glucose 126 H 125 H (74-99) mg/dL POC Glucose (mg/dL) 120 H (70-110) mg/dL Calcium 7.8 L 7.6 L (8.4-10.2) mg/dL Urine Appearance (Clear) Urine Protein (Negative) Urine Glucose (UA) (Negative) Urine Blood (Negative) Ur Leukocyte Esterase (Negative) Urine WBC (0-5) /hpf Ur Squamous Epith Cells (0-4) /hpf Urine Bacteria (None) /hpf Urine Mucus (None) /hpf 09/23/24 09/23/24 Range/Units 12:20 20:25 Chloride (98-107) mmol/L Carbon Dioxide (22-30) mmol/L BUN (7-17) mg/dL Creatinine (0.52-1.04) mg/dL Glucose (74-99) mg/dL POC Glucose (mg/dL) 164 H (70-110) mg/dL Calcium (8.4-10.2) mg/dL Urine Appearance Cloudy H (Clear) Urine Protein 3+ H (Negative) Urine Glucose (UA) 3+ H (Negative) Urine Blood Trace H (Negative) Ur Leukocyte Esterase Trace H (Negative) Urine WBC 20 H (0-5) /hpf Ur Squamous Epith Cells 17 H (0-4) /hpf Urine Bacteria Rare H (None) /hpf Urine Mucus Rare H (None) /hpf Microbiology - Last 24 Hours (Table) 09/21/24 09:17 Blood Culture - Preliminary Blood Assessment and Plan Assessment: Right upper extremity cellulitis after right upper extremity procedure, AV graft formation by vascular surgery team End-stage renal disease not on dialysis Intractable nausea and vomiting most likely secondary to gastritis COPD/asthma Diabetes mellitus Hypertension Hyperlipidemia History of osteoarthritis Paroxysmal atrial fibrillation Hearing difficulty Plan: Continue with antibiotic Zosyn and IV vancomycin Vascular surgery team consult Infectious disease team consult Zofran and Reglan Nephrology evaluation for end-stage renal disease Labs and medication were reviewed.. Continue same treatment. Continue with symptomatic treatment. Resume home medication. Monitor lytes and vitals. DVT and GI prophylaxis. Further recommendations depends on the clinical course of the patient DVT prophylaxis: Subcutaneous heparin GI Prophylaxis: Pepcid PT/OT: Pending Prognosis is guarded
[2024-09-24 06:32] LABS: Glucose,Whole Blood 67 mg/dL (70-110)
[2024-09-24 07:38] LABS: Glucose,Whole Blood 109 mg/dL (70-110)
--- NOTE | 2024-09-24 10:51 | P.PN ---
Subjective Progress Note Date: 09/24/24 Patient is seen and examined today as a follow-up. She still has some right upper extremity swelling surrounding her AV graft however has improved since applying compression stocking. Full range of motion in her right upper extremity. She has been afebrile. Has some discomfort still in that right uppe r extremity which is to be expected. Objective - Vital Signs Vital signs: Vital Signs Temp 97.6 F 09/24/24 08:00 Pulse 78 09/24/24 08:00 Resp 18 09/24/24 08:00 BP 118/69 09/24/24 08:00 Pulse Ox 95 09/24/24 08:00 FiO2 Intake & Output 09/23/24 09/24/24 09/24/24 18:59 06:59 18:59 Intake Total 240 Balance 240 Intake: Oral 240 Other: # Voids 2 3 - Exam General appearance: The patient is alert, oriented, appears in no acute distress . HET: Head is normocephalic and atraumatic. Pupils are equal and reactive. Neck: Supple. Abdomen: Soft, nondistended. Extremities: Right upper extremity incisions well-approximated, audible pulse/ bruit over AV graft. Allergic dermatitis seems to be improving, swelling improving. Palpable radial pulse. Neurological: No focal deficits. Strength and sensation are grossly intact. - Labs CBC & Chem 7: 09/21/24 08:39 09/23/24 10:44 Labs: Abnormal Lab Results - Last 24 Hours (Table) 09/23/24 09/23/24 09/23/24 Range/Units 10:44 12:06 12:20 Chloride 113 H (98-107) mmol/L Carbon Dioxide 17 L (22-30) mmol/L BUN 78 H (7-17) mg/dL Creatinine 6.71 H (0.52-1.04) mg/dL Glucose 125 H (74-99) mg/dL POC Glucose (mg/dL) 120 H (70-110) mg/dL Calcium 7.6 L (8.4-10.2) mg/dL Urine Appearance Cloudy H (Clear) Urine Protein 3+ H (Negative) Urine Glucose (UA) 3+ H (Negative) Urine Blood Trace H (Negative) Ur Leukocyte Esterase Trace H (Negative) Urine WBC 20 H (0-5) /hpf Ur Squamous Epith Cells 17 H (0-4) /hpf Urine Bacteria Rare H (None) /hpf Urine Mucus Rare H (None) /hpf 09/23/24 09/24/24 Range/Units 20:25 06:31 Chloride (98-107) mmol/L Carbon Dioxide (22-30) mmol/L BUN (7-17) mg/dL Creatinine (0.52-1.04) mg/dL Glucose (74-99) mg/dL POC Glucose (mg/dL) 164 H 67 L (70-110) mg/dL Calcium (8.4-10.2) mg/dL Urine Appearance (Clear) Urine Protein (Negative) Urine Glucose (UA) (Negative) Urine Blood (Negative) Ur Leukocyte Esterase (Negative) Urine WBC (0-5) /hpf Ur Squamous Epith Cells (0-4) /hpf Urine Bacteria (None) /hpf Urine Mucus (None) /hpf Microbiology - Last 24 Hours (Table) 09/21/24 09:17 Blood Culture - Preliminary Blood Assessment and Plan Assessment: 1. Right upper extremity swelling and pain secondary to recent loop forearm graft. To be expected secondary from venous congestion. 2. Right upper extremity allergic contact dermatitis secondary to adhesive, dressing 3. End-stage renal disease requiring hemodialysis Plan: Continue with compression stocking to right upper extremity. Elevate as needed. May apply cold pack as needed. Tylenol for pain. Will defer management of contact allergic dermatitis to primary medical team. There is no plans for any vascular surgical intervention. Patient has appointment this week Tuesday with vascular surgery for repeat ultrasound and follow-up with Dr. Panchal. Thank you for this consultation, patient is cleared from vascular surgery for discharge. We will sign off at this time. The impression and plan of care has been dictated as directed. Dr. Wilkinson I performed a history and examination of this patient, discussed the same with the dictator. I agree with the dictator's note ,documented as a scribe. Any additional findings or plans will be noted.
[2024-09-24 10:55] LABS: Glucose,Whole Blood 155 mg/dL (70-110)
[2024-09-24] MEDS ORDERED: INSULIN LISPRO (HumaLOG) 100 UNIT/ML 10 mL VL SQ PRN (11:37)
--- NOTE | 2024-09-24 11:42 | P.PN ---
Subjective Patient is seen in follow-up for chronic kidney disease stage V. States she did not urinate much today. Being treated for upper extremity cellulitis post AV graft surgery. Vital signs are stable. General: No acute distress. HEENT: Head exam is unremarkable. LUNGS: No audible rhonchi or wheezes. HEART: Rate and Rhythm are regular. ABDOMEN: Nontender. EXTREMITITES: No edema. Objective - Vital Signs Vital signs: Vital Signs Temp 97.6 F 09/24/24 08:00 Pulse 78 09/24/24 08:00 Resp 18 09/24/24 08:00 BP 118/69 09/24/24 08:00 Pulse Ox 95 09/24/24 08:00 FiO2 Intake & Output 09/23/24 09/24/24 09/24/24 18:59 06:59 18:59 Intake Total 240 Balance 240 Intake: Oral 240 Other: # Voids 2 3 - Labs CBC & Chem 7: 09/21/24 08:39 09/23/24 10:44 Labs: Abnormal Lab Results - Last 24 Hours (Table) 09/23/24 09/23/24 09/23/24 Range/Units 10:44 12:06 12:20 Chloride 113 H (98-107) mmol/L Carbon Dioxide 17 L (22-30) mmol/L BUN 78 H (7-17) mg/dL Creatinine 6.71 H (0.52-1.04) mg/dL Glucose 125 H (74-99) mg/dL POC Glucose (mg/dL) 120 H (70-110) mg/dL Calcium 7.6 L (8.4-10.2) mg/dL Urine Appearance Cloudy H (Clear) Urine Protein 3+ H (Negative) Urine Glucose (UA) 3+ H (Negative) Urine Blood Trace H (Negative) Ur Leukocyte Esterase Trace H (Negative) Urine WBC 20 H (0-5) /hpf Ur Squamous Epith Cells 17 H (0-4) /hpf Urine Bacteria Rare H (None) /hpf Urine Mucus Rare H (None) /hpf 09/23/24 09/24/24 09/24/24 Range/Units 20:25 06:31 10:47 Chloride (98-107) mmol/L Carbon Dioxide (22-30) mmol/L BUN (7-17) mg/dL Creatinine (0.52-1.04) mg/dL Glucose (74-99) mg/dL POC Glucose (mg/dL) 164 H 67 L 155 H (70-110) mg/dL Calcium (8.4-10.2) mg/dL Urine Appearance (Clear) Urine Protein (Negative) Urine Glucose (UA) (Negative) Urine Blood (Negative) Ur Leukocyte Esterase (Negative) Urine WBC (0-5) /hpf Ur Squamous Epith Cells (0-4) /hpf Urine Bacteria (None) /hpf Urine Mucus (None) /hpf Microbiology - Last 24 Hours (Table) 09/21/24 09:17 Blood Culture - Preliminary Blood Assessment and Plan Plan: Assessment: 1. 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 2. Right upper extremity cellulitis status post loop AV graft placement. On IV antibiotics. ID following. 3. Anemia of chronic kidney disease. 4. Diabetes mellitus. 5. Metabolic acidosis secondary to chronic kidney disease maintained on oral bicarb. Plan: Add IV Lasix 80 mg once daily. Strict I's and O's. Repeat labs in the morning. Continue to assess need for renal replacement therapy. No urgency at this time. If no renal replacement therapy needed at this time, will discontinue permacath prior to discharge.
[2024-09-24] MEDS: FUROSEMIDE 10 MG/ML 10 ML VIAL IV SCH (11:57)
[2024-09-24] MEDS: ERGOCALCIFEROL 1,250 MCG (50,000 IU) CAPSULE PO SCH (14:18)
[2024-09-24 17:09] LABS: Glucose,Whole Blood 150 mg/dL (70-110)
[2024-09-24 21:02] LABS: Glucose,Whole Blood 128 mg/dL (70-110)
[2024-09-24] MEDS: INSULIN GLARGINE (LANTUS) 100 UNIT/ML SYR SQ SCH (22:07)
--- NOTE | 2024-09-25 02:27 | PN ---
PROGRESS NOTE DATE OF SERVICE: 09/24/2024 SUBJECTIVE: This 59-year-old woman was admitted with right upper extremity cellulitis surrounding the AV graft, is improving at this time. No chest pain. No palpitation. PHYSICAL EXAMINATION: VITAL SIGNS: Pulse is 78, blood pressure n, and respirations 18. CHEST: Clear to auscultation. CARDIOVASCULAR: S1, S2. ABDOMEN: Soft. SKIN: Right arm minimal swelling present. LABORATORY DATA: Reviewed. ASSESSMENT: 1. Right upper extremity swelling status post recent AV graft. 2. Right upper extremity allergy contact dermatitis secondary to adhesive dressing. 3. End-stage renal disease, on hemodialysis. 4. Gastritis. 5. Chronic obstructive pulmonary disease. 6. Diabetes mellitus, type 2. 7. Hypertension. RECOMMENDATIONS: Recommend to continue current management and continue symptomatic treatment. Otherwise, would repeat labs and continue to monitor, closely follow with Vascular Surgery. The patient has empiric antibiotics. Further recommendations to follow. MMODL / IJN: [id number] / MTDD
[2024-09-25 06:07] LABS: Glucose,Whole Blood 50 mg/dL (70-110)
[2024-09-25 06:43] LABS: Glucose,Whole Blood 59 mg/dL (70-110)
[2024-09-25 08:01] LABS: Glucose,Whole Blood 124 mg/dL (70-110)
[2024-09-25 08:08] LABS: Basophils # (A) 0.02 X 10*3/uL (0.00-0.10); Basophils % (A) 0.2 %; Eosinophils # (A) 0.24 X 10*3/uL (0.04-0.35); Eosinophils % (A) 2.4 %; HCT 27.8 % (37.2-46.3); HGB 8.9 g/dL (12.0-15.0); Lymphocytes # (A) 1.48 X 10*3/uL (0.90-5.00); Lymphocytes % (A) 14.6 %; MCH 29.9 pg (27.0-32.0); MCV 93.3 FL (80.0-97.0); Monocytes # (A) 0.81 X 10*3/uL (0.20-1.00); NRBC Per 100 WBC 0 X 10*3/uL (0.00-0.01); Neutrophils # (A) 7.54 X 10*3/uL (1.80-7.70); Neutrophils % (A) 74.3 %; Platelet Count 130 X 10*3/uL (140-440); RBC 2.98 X 10*6/uL (4.10-5.20); RDW 12.1 % (11.5-14.5); WBC 10.14 X 10*3/uL (4.50-10.00)
[2024-09-25 08:25] LABS: BUN/Creat Ratio 8.58 Ratio (12.00-20.00); Blood Urea Nitrogen 84.1 mg/dL (9.0-27.0); Glucose 55 mg/dL (70-110); Phosphorus 8.8 mg/dL (2.4-5.1)
[2024-09-25 08:26] LABS: Calcium 7.2 mg/dL (8.7-10.3); Carbon Dioxide 14.8 mmol/L (21.6-31.8); Chloride 106 mmol/L (96-109); Potassium 4.7 mmol/L (3.5-5.5); Sodium 137 mmol/L (135-145)
[2024-09-25] MEDS: ATORVASTATIN 10 MG TAB PO SCH (09:54)
--- NOTE | 2024-09-25 11:40 | P.PN ---
Subjective Patient is seen in follow-up for chronic kidney disease stage V. Creatinine 9.8 today. Being treated for upper extremity cellulitis post AV graft surgery. Panchal catheter was placed yesterday due to concern for urinary retention but was removed this morning. Urine output documented as 225 cc. Vital signs are stable. General: No acute distress. HEENT: Head exam is unremarkable. LUNGS: No audible rhonchi or wheezes. HEART: Rate and Rhythm are regular. ABDOMEN: Nontender. EXTREMITITES: No edema. Objective - Vital Signs Vital signs: Vital Signs Temp 98.4 F 09/25/24 07:40 Pulse 89 09/25/24 07:40 Resp 17 09/25/24 07:40 BP 130/75 09/25/24 07:40 Pulse Ox 94 L 09/25/24 07:40 FiO2 Intake & Output 09/24/24 09/25/24 09/25/24 18:59 06:59 18:59 Intake Total 240 Output Total 225 200 Balance 15 -200 Intake: Oral 240 Output: Urine 225 200 Other: Voiding Method Indwelling Catheter # Bowel Movements 1 - Labs CBC & Chem 7: 09/25/24 03:00 09/25/24 03:00 Labs: Abnormal Lab Results - Last 24 Hours (Table) 09/24/24 09/24/24 09/25/24 Range/Units 17:06 21:00 03:00 WBC 10.14 H (4.50-10.00) X 10*3/uL RBC 2.98 L (4.10-5.20) X 10*6/uL Hgb 8.9 L (12.0-15.0) g/dL Hct 27.8 L (37.2-46.3) % Plt Count 130 L (140-440) X 10*3/uL Immature Gran # 0.05 H (0.00-0.04) X 10*3/uL Carbon Dioxide (21.6-31.8) mmol/L Anion Gap (4.00-12.00) mmol/L BUN (9.0-27.0) mg/dL Creatinine (0.6-1.5) mg/dL Est GFR (CKD-EPI) (>=60) BUN/Creatinine Ratio (12.00-20.00) Ratio Glucose (70-110) mg/dL POC Glucose (mg/dL) 150 H 128 H (70-110) mg/dL Calcium (8.7-10.3) mg/dL Phosphorus (2.4-5.1) mg/dL 09/25/24 09/25/24 09/25/24 Range/Units 03:00 06:06 06:41 WBC (4.50-10.00) X 10*3/uL RBC (4.10-5.20) X 10*6/uL Hgb (12.0-15.0) g/dL Hct (37.2-46.3) % Plt Count (140-440) X 10*3/uL Immature Gran # (0.00-0.04) X 10*3/uL Carbon Dioxide 14.8 L (21.6-31.8) mmol/L Anion Gap 16.20 H (4.00-12.00) mmol/L BUN 84.1 H (9.0-27.0) mg/dL Creatinine 9.8 H (0.6-1.5) mg/dL Est GFR (CKD-EPI) 4 L (>=60) BUN/Creatinine Ratio 8.58 L (12.00-20.00) Ratio Glucose 55 L (70-110) mg/dL POC Glucose (mg/dL) 50 L 59 L (70-110) mg/dL Calcium 7.2 L (8.7-10.3) mg/dL Phosphorus 8.8 H (2.4-5.1) mg/dL 09/25/24 Range/Units 08:00 WBC (4.50-10.00) X 10*3/uL RBC (4.10-5.20) X 10*6/uL Hgb (12.0-15.0) g/dL Hct (37.2-46.3) % Plt Count (140-440) X 10*3/uL Immature Gran # (0.00-0.04) X 10*3/uL Carbon Dioxide (21.6-31.8) mmol/L Anion Gap (4.00-12.00) mmol/L BUN (9.0-27.0) mg/dL Creatinine (0.6-1.5) mg/dL Est GFR (CKD-EPI) (>=60) BUN/Creatinine Ratio (12.00-20.00) Ratio Glucose (70-110) mg/dL POC Glucose (mg/dL) 124 H (70-110) mg/dL Calcium (8.7-10.3) mg/dL Phosphorus (2.4-5.1) mg/dL Microbiology - Last 24 Hours (Table) 09/21/24 09:17 Blood Culture - Preliminary Blood Assessment and Plan Plan: Assessment: 1. 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 2. Right upper extremity cellulitis status post loop AV graft placement. On IV antibiotics. ID following. 3. Anemia of chronic kidney disease. 4. Diabetes mellitus. 5. Metabolic acidosis secondary to chronic kidney disease maintained on oral bicarb. Plan: Change IV Lasix to oral torsemide. Add Aranesp. Avoid morphine due to depressed GFR. With rising creatinine, acidosis, low urine output, initiate renal replacement therapy via the permacath. Plan for first treatment of hemodialysis today and second treatment tomorrow.
[2024-09-25 11:59] LABS: Glucose,Whole Blood 142 mg/dL (70-110)
[2024-09-25] MEDS: NON FORMULARY DRUG (Mirabegron [Myrbetriq] 25 MG Tab.Er.24h) PO SCH (12:23)
--- NOTE | 2024-09-25 14:54 | P.PN ---
Subjective Progress Note Date: 09/23/24 Principal diagnosis: Reason for follow-up with right upper extremity cellulitis Patient is a 59-year-old female with a past medical history significant for diabetes mellitus hypertension hyperlipidemia reflux atrial fibrillation end-stage renal disease and currently started on dialysis, patient did have right IJ tunneled catheter, patient did have right upper extremity loop forearm AV graft created on 09/13/2024, presented to hospital with a right upper extremity graft site swelling redness and drainage she was admitted for concern for possible cellulitis. On today's evaluation that is 09/23/2024, patient has been afebrile, patient is breathing comfortably and is currently on room air, patient denies having any chest pain and cough, patient denies nausea vomiting or diarrhea and no abdominal pain circumventing of pain to the right upper extremity and drainage has decreased. Patient did have a creatinine of 6.71 no CBC was done today blood cultures are pending Objective - Vital Signs Vital signs: Vital Signs Temp 98.3 F 09/23/24 14:19 Pulse 80 09/23/24 14:19 Resp 18 09/23/24 14:19 BP 118/70 09/23/24 14:19 Pulse Ox 96 09/23/24 14:19 FiO2 Intake & Output 09/22/24 09/23/24 09/23/24 18:59 06:59 18:59 Intake Total 240 Balance 240 Intake: Oral 240 Other: # Voids 2 3 2 - Exam GENERAL DESCRIPTION: Middle-age female lying in bed in no distress RESPIRATORY SYSTEM: Unlabored breathing , decreased breath sounds at bases HEART: S1 S2 regular rate and rhythm , ABDOMEN: Soft , no tenderness EXTREMITIES: Right upper extremity graft site did have erythema no significant drainage - Labs CBC & Chem 7: 09/25/24 03:00 09/25/24 03:00 Labs: Abnormal Lab Results - Last 24 Hours (Table) 09/22/24 09/22/24 09/23/24 Range/Units 16:41 20:23 08:12 Chloride 113 H (98-107) mmol/L Carbon Dioxide 15 L (22-30) mmol/L BUN 74 H (7-17) mg/dL Creatinine 6.61 H (0.52-1.04) mg/dL Glucose 126 H (74-99) mg/dL POC Glucose (mg/dL) 174 H 167 H (70-110) mg/dL Calcium 7.8 L (8.4-10.2) mg/dL Urine Appearance (Clear) Urine Protein (Negative) Urine Glucose (UA) (Negative) Urine Blood (Negative) Ur Leukocyte Esterase (Negative) Urine WBC (0-5) /hpf Ur Squamous Epith Cells (0-4) /hpf Urine Bacteria (None) /hpf Urine Mucus (None) /hpf 09/23/24 09/23/24 09/23/24 Range/Units 10:44 12:06 12:20 Chloride 113 H (98-107) mmol/L Carbon Dioxide 17 L (22-30) mmol/L BUN 78 H (7-17) mg/dL Creatinine 6.71 H (0.52-1.04) mg/dL Glucose 125 H (74-99) mg/dL POC Glucose (mg/dL) 120 H (70-110) mg/dL Calcium 7.6 L (8.4-10.2) mg/dL Urine Appearance Cloudy H (Clear) Urine Protein 3+ H (Negative) Urine Glucose (UA) 3+ H (Negative) Urine Blood Trace H (Negative) Ur Leukocyte Esterase Trace H (Negative) Urine WBC 20 H (0-5) /hpf Ur Squamous Epith Cells 17 H (0-4) /hpf Urine Bacteria Rare H (None) /hpf Urine Mucus Rare H (None) /hpf Microbiology - Last 24 Hours (Table) 09/21/24 09:17 Blood Culture - Preliminary Blood Assessment and Plan (1) Right arm cellulitis Current Visit: Yes Status: Acute Code(s): L03.113 - CELLULITIS OF RIGHT UPPER LIMB SNOMED Code(s): 34174304118587313 (2) Pain and swelling of right upper extremity Current Visit: Yes Status: Acute Code(s): M79.601 - PAIN IN RIGHT ARM; M79.89 - OTHER SPECIFIED SOFT TISSUE DISORDERS SNOMED Code(s): 394850250 Plan: 1patient presented to hospital with right upper extremity pain swelling and redness in this patient who did have significant abnormality seen on the CT with recent right upper extremity AV loop graft placement for dialysis concerning for cellulitis and will need to cover for the gram-positive as well as gram-negative pathogen 2-patient is afebrile white count was mild elevated on last check for now continue with the daptomycin and Zosyn while waiting for the culture to finalize Dictation was produced using [employer] dictation software. please excuse any grammatical, word or spelling errors. Time with Patient: Less than 30
--- NOTE | 2024-09-25 14:55 | P.PN ---
Subjective Progress Note Date: 09/24/24 Principal diagnosis: Reason for follow-up with right upper extremity cellulitis Patient is a 59-year-old female with a past medical history significant for diabetes mellitus hypertension hyperlipidemia reflux atrial fibrillation end-stage renal disease and currently started on dialysis, patient did have right IJ tunneled catheter, patient did have right upper extremity loop forearm AV graft created on 09/13/2024, presented to hospital with a right upper extremity graft site swelling redness and drainage she was admitted for concern for possible cellulitis. On today's evaluation that is 09/24/2024, patient has been afebrile, patient is breathing comfortably and is currently on room air, patient denies having any chest pain and cough, patien denies nausea vomiting or diarrhea and no abdominal pain patient complaining of pain to the right upper extremity though some improvement in intensity and drainage has decreased. No new lab has been obtained today blood cultures so far negative Objective - Vital Signs Vital signs: Vital Signs Temp 97.6 F 09/24/24 08:00 Pulse 78 09/24/24 08:00 Resp 18 09/24/24 08:00 BP 118/69 09/24/24 08:00 Pulse Ox 95 09/24/24 08:00 FiO2 Intake & Output 09/23/24 09/24/24 09/24/24 18:59 06:59 18:59 Intake Total 240 Balance 240 Intake: Oral 240 Other: # Voids 2 3 - Exam GENERAL DESCRIPTION: Middle-age female lying in bed in no distress RESPIRATORY SYSTEM: Unlabored breathing , decreased breath sounds at bases HEART: S1 S2 regular rate and rhythm , ABDOMEN: Soft , no tenderness EXTREMITIES: Right upper extremity graft site did have erythema no significant drainage - Labs CBC & Chem 7: 09/25/24 03:00 09/25/24 03:00 Labs: Abnormal Lab Results - Last 24 Hours (Table) 09/23/24 09/24/24 09/24/24 Range/Units 20:25 06:31 10:47 POC Glucose (mg/dL) 164 H 67 L 155 H (70-110) mg/dL Microbiology - Last 24 Hours (Table) 09/21/24 09:17 Blood Culture - Preliminary Blood Assessment and Plan (1) Right arm cellulitis Current Visit: Yes Status: Acute Code(s): L03.113 - CELLULITIS OF RIGHT UPPER LIMB SNOMED Code(s): 88437967355582347 (2) Pain and swelling of right upper extremity Current Visit: Yes Status: Acute Code(s): M79.601 - PAIN IN RIGHT ARM; M79.89 - OTHER SPECIFIED SOFT TISSUE DISORDERS SNOMED Code(s): 922507670 Plan: 1patient presented to hospital with right upper extremity pain swelling and redness in this patient who did have significant abnormality seen on the CT with recent right upper extremity AV loop graft placement for dialysis concerning for cellulitis and will need to cover for the gram-positive as well as gram-negative pathogen 2-patient is afebrile white count not checked today blood culture have been negative so far she is currently on daptomycin and Solomonn will consider short course of oral antibiotic on discharge Dictation was produced using [employer] dictation software. please excuse any grammatical, word or spelling errors. Time with Patient: Less than 30
--- NOTE | 2024-09-25 14:56 | P.PN ---
Subjective Progress Note Date: 09/25/24 Principal diagnosis: Reason for follow-up with right upper extremity cellulitis Patient is a 59-year-old female with a past medical history significant for diabetes mellitus hypertension hyperlipidemia reflux atrial fibrillation end-stage renal disease and currently started on dialysis, patient did have right IJ tunneled catheter, patient did have right upper extremity loop forearm AV graft created on 09/13/2024, presented to hospital with a right upper extremity graft site swelling redness and drainage she was admitted for concern for possible cellulitis. On today's evaluation that is 09/25/2024, Patient is afebrile this morning patient denies having any chest pain shortness of breath or cough, the patient is currently on room air, patient denies any abdominal pain some nausea but no vomiting have been complaining of diarrhea and circumventing of pain to the right upper extremity. Patient white count is 10.14, creatinine is 9.8 blood culture have been negative Objective - Vital Signs Vital signs: Vital Signs Temp 98.4 F 09/25/24 07:40 Pulse 89 09/25/24 07:40 Resp 17 09/25/24 07:40 BP 130/75 09/25/24 07:40 Pulse Ox 94 L 09/25/24 07:40 FiO2 Intake & Output 09/24/24 09/25/24 09/25/24 18:59 06:59 18:59 Intake Total 240 Output Total 225 200 Balance 15 -200 Intake: Oral 240 Output: Urine 225 200 Other: Voiding Method Indwelling Catheter # Bowel Movements 1 - Exam GENERAL DESCRIPTION: Middle-age female lying in bed in no distress RESPIRATORY SYSTEM: Unlabored breathing , decreased breath sounds at bases HEART: S1 S2 regular rate and rhythm , ABDOMEN: Soft , no tenderness EXTREMITIES: Right upper extremity graft site did have erythema no significant drainage - Labs CBC & Chem 7: 09/25/24 03:00 09/25/24 03:00 Labs: Abnormal Lab Results - Last 24 Hours (Table) 09/24/24 09/24/24 09/25/24 Range/Units 17:06 21:00 03:00 WBC 10.14 H (4.50-10.00) X 10*3/uL RBC 2.98 L (4.10-5.20) X 10*6/uL Hgb 8.9 L (12.0-15.0) g/dL Hct 27.8 L (37.2-46.3) % Plt Count 130 L (140-440) X 10*3/uL Immature Gran # 0.05 H (0.00-0.04) X 10*3/uL Carbon Dioxide (21.6-31.8) mmol/L Anion Gap (4.00-12.00) mmol/L BUN (9.0-27.0) mg/dL Creatinine (0.6-1.5) mg/dL Est GFR (CKD-EPI) (>=60) BUN/Creatinine Ratio (12.00-20.00) Ratio Glucose (70-110) mg/dL POC Glucose (mg/dL) 150 H 128 H (70-110) mg/dL Calcium (8.7-10.3) mg/dL Phosphorus (2.4-5.1) mg/dL 09/25/24 09/25/24 09/25/24 Range/Units 03:00 06:06 06:41 WBC (4.50-10.00) X 10*3/uL RBC (4.10-5.20) X 10*6/uL Hgb (12.0-15.0) g/dL Hct (37.2-46.3) % Plt Count (140-440) X 10*3/uL Immature Gran # (0.00-0.04) X 10*3/uL Carbon Dioxide 14.8 L (21.6-31.8) mmol/L Anion Gap 16.20 H (4.00-12.00) mmol/L BUN 84.1 H (9.0-27.0) mg/dL Creatinine 9.8 H (0.6-1.5) mg/dL Est GFR (CKD-EPI) 4 L (>=60) BUN/Creatinine Ratio 8.58 L (12.00-20.00) Ratio Glucose 55 L (70-110) mg/dL POC Glucose (mg/dL) 50 L 59 L (70-110) mg/dL Calcium 7.2 L (8.7-10.3) mg/dL Phosphorus 8.8 H (2.4-5.1) mg/dL 09/25/24 09/25/24 Range/Units 08:00 11:58 WBC (4.50-10.00) X 10*3/uL RBC (4.10-5.20) X 10*6/uL Hgb (12.0-15.0) g/dL Hct (37.2-46.3) % Plt Count (140-440) X 10*3/uL Immature Gran # (0.00-0.04) X 10*3/uL Carbon Dioxide (21.6-31.8) mmol/L Anion Gap (4.00-12.00) mmol/L BUN (9.0-27.0) mg/dL Creatinine (0.6-1.5) mg/dL Est GFR (CKD-EPI) (>=60) BUN/Creatinine Ratio (12.00-20.00) Ratio Glucose (70-110) mg/dL POC Glucose (mg/dL) 124 H 142 H (70-110) mg/dL Calcium (8.7-10.3) mg/dL Phosphorus (2.4-5.1) mg/dL Microbiology - Last 24 Hours (Table) 09/21/24 09:17 Blood Culture - Preliminary Blood Assessment and Plan (1) Right arm cellulitis Current Visit: Yes Status: Acute Code(s): L03.113 - CELLULITIS OF RIGHT UPPER LIMB SNOMED Code(s): 58836045372610615 (2) Pain and swelling of right upper extremity Current Visit: Yes Status: Acute Code(s): M79.601 - PAIN IN RIGHT ARM; M79.8 9 - OTHER SPECIFIED SOFT TISSUE DISORDERS SNOMED Code(s): 631807282 Plan: 1patient presented to hospital with right upper extremity pain swelling and redness in this patient who did have significant abnormality seen on the CT with recent right upper extremity AV loop graft placement for dialysis concerning for cellulitis and will need to cover for the gram-positive as well as gram-negative pathogen 2-patient is afebrile did have improvement in the cellulitis to the right upper extremity continue daptomycin patient has developed diarrhea more likely related to Zosyn which will be discontinued if persistent diarrhea will check stool for C. difficile and treat if positive Dictation was produced using [employer] software. please excuse any grammatical, word or spelling errors. Time with Patient: Less than 30
[2024-09-25] MEDS: OXYBUTYNIN XL 5 MG TAB.ER.24 PO SCH (15:07)
[2024-09-25] MEDS: DARBEPOETIN ALFA 40 MCG/0.4 ML SYRINGE SQ SCH (15:28)
[2024-09-25 17:44] LABS: Glucose,Whole Blood 142 mg/dL (70-110)
[2024-09-25 20:42] LABS: Glucose,Whole Blood 102 mg/dL (70-110)
--- NOTE | 2024-09-26 06:05 | P.PN ---
Subjective Progress Note Date: 09/25/24 This is a pleasant 59-year-old female who was recently admitted with right upper extremity cellulitis surrounding the AV graft which is improving. Nephrology and vascular surgery following and patient not currently receiving any dialysis and is maintained on oral Lasix. There is discussion of possibly initiating dialysis and will discuss further with nephrology. Recommended to continue monitoring Accu-Cheks AC and at bedtime and will adjust insulins accordingly as blood sugars have been elevated. Encouraged to increase activity as tolerated and may need PT/OT therapy evaluation. Patient is afebrile with no reports of chest pain or worsening shortness of breath patient has been tolerating diet Review of systems: Constitutional: No reports of fatigue, fever, or chills Cardiovascular: No reports of chest pain or palpitations Respiratory: No reports of shortness of breath or cough GI: No reports of nausea, no reports of vomiting, reports loose stools : No reports of dysuria, was retaining and now with indwelling Panchal cath Neurovascular: reports of generalized weakness All medications have been reviewed PHYSICAL EXAMINATION: GENERAL: The patient is alert and oriented x 3, elderly appearing well developed, well nourished. HEENT: Pupils are round and equally reacting to light. EOMI. no scleral icterus. No conjunctival pallor. Normocephalic, atraumatic. No pharyngeal erythema. No thyromegaly. CARDIOVASCULAR: S1 and S2 muffled PULMONARY: diminished breath sounds bilaterally with no wheezing or rhonchi noted. ABDOMEN: soft. Nontender on exam. obese. non-distended, normoactive bowel sounds. No palpable organomegaly. MUSCULOSKELETAL: No joint swelling or deformity. EXTREMITIES: No cyanosis, clubbing, or pedal edema. NEUROLOGICAL: Gross neurological examination did not reveal any focal deficits. Diffuse weakness SKIN: No rashes. Assessment: Right upper extremity swelling status post recent AV graft Right upper extremity allergy contact dermatitis secondary to adhesive dressing End-stage renal disease, nephrology following and will be initiating hemodia lysis for 2 days Gastritis, improving Chronic obstructive pulmonary disease, not in exacerbation Diabetes mellitus, type II, uncontrolled with hyper and hypoglycemia Hypertension GI prophylaxis DVT prophylaxis Full code Plan: Recommend to continue with current medications and management with nephrology, vascular surgery, infectious disease following. Per patient patient has not received any hemodialysis and nephrology discussing possible hemodialysis for the next 2 days Vascular surgery following recommending outpatient follow-up. Infectious disease following and patient is maintained on daptomycin. Patient developed diarrhea and C. difficile ordered and is pending Recommend PT/OT therapy evaluation will discuss with case management regarding discharge planning in the event patient needs ECF. Encouraged increase activity as tolerated and sitting more frequently in the chair, elevate lower extremities while at rest Due to multiple complex medical issues, overall prognosis is guarded The impression and plan of care has been dictated by Isabelle Becker, nurse practitioner as directed. Dr. Donte MD I have performed a history and examination and MDM of this patient, discussed the same with the dictator, and agree with the dictator's assessment and plan as written ,documented as a scribe. Based on total visit time, I have performed more than 50% of the visit. Any additional findings or plans will be noted. Objective - Vital Signs Vital signs: Vital Signs Temp 99.3 F 09/26/24 00:44 Pulse 97 09/26/24 00:44 Resp 17 09/26/24 00:44 BP 136/75 09/26/24 00:44 Pulse Ox 93 L 09/26/24 00:44 FiO2 Intake & Output 09/25/24 09/25/24 09/26/24 06:59 18:59 06:59 Intake Total 240 400 Output Total 176 208 7215 Balance 15 -200 -1000 Intake: Oral 240 Hemodialysis 400 Output: Urine 225 200 Hemodialysis 900 Hemodialysis Net Amount 500 Other: Voiding Method Indwelling Catheter # Voids 1 # Bowel Movements 1 1 - Labs CBC & Chem 7: 09/25/24 03:00 09/25/24 03:00 Labs: Abnormal Lab Results - Last 24 Hours (Table) 09/25/24 09/25/24 09/25/24 Range/Units 03:00 03:00 06:06 WBC 10.14 H (4.50-10.00) X 10*3/uL RBC 2.98 L (4.10-5.20) X 10*6/uL Hgb 8.9 L (12.0-15.0) g/dL Hct 27.8 L (37.2-46.3) % Plt Count 130 L (140-440) X 10*3/uL Immature Gran # 0.05 H (0.00-0.04) X 10*3/uL Carbon Dioxide 14.8 L (21.6-31.8) mmol/L Anion Gap 16.20 H (4.00-12.00) mmol/L BUN 84.1 H (9.0-27.0) mg/dL Creatinine 9.8 H (0.6-1.5) mg/dL Est GFR (CKD-EPI) 4 L (>=60) BUN/Creatinine Ratio 8.58 L (12.00-20.00) Ratio Glucose 55 L (70-110) mg/dL POC Glucose (mg/dL) 50 L (70-110) mg/dL Calcium 7.2 L (8.7-10.3) mg/dL Phosphorus 8.8 H (2.4-5.1) mg/dL 09/25/24 09/25/24 09/25/24 Range/Units 06:41 08:00 11:58 WBC (4.50-10.00) X 10*3/uL RBC (4.10-5.20) X 10*6/uL Hgb (12.0-15.0) g/dL Hct (37.2-46.3) % Plt Count (140-440) X 10*3/uL Immature Gran # (0.00-0.04) X 10*3/uL Carbon Dioxide (21.6-31.8) mmol/L Anion Gap (4.00-12.00) mmol/L BUN (9.0-27.0) mg/dL Creatinine (0.6-1.5) mg/dL Est GFR (CKD-EPI) (>=60) BUN/Creatinine Ratio (12.00-20.00) Ratio Glucose (70-110) mg/dL POC Glucose (mg/dL) 59 L 124 H 142 H (70-110) mg/dL Calcium (8.7-10.3) mg/dL Phosphorus (2.4-5.1) mg/dL 09/25/24 Range/Units 17:44 WBC (4.50-10.00) X 10*3/uL RBC (4.10-5.20) X 10*6/uL Hgb (12.0-15.0) g/dL Hct (37.2-46.3) % Plt Count (140-440) X 10*3/uL Immature Gran # (0.00-0.04) X 10*3/uL Carbon Dioxide (21.6-31.8) mmol/L Anion Gap (4.00-12.00) mmol/L BUN (9.0-27.0) mg/dL Creatinine (0.6-1.5) mg/dL Est GFR (CKD-EPI) (>=60) BUN/Creatinine Ratio (12.00-20.00) Ratio Glucose (70-110) mg/dL POC Glucose (mg/dL) 142 H (70-110) mg/dL Calcium (8.7-10.3) mg/dL Phosphorus (2.4-5.1) mg/dL
[2024-09-26 06:19] LABS: Glucose,Whole Blood 43 mg/dL (70-110)
[2024-09-26 06:50] LABS: Glucose,Whole Blood 48 mg/dL (70-110)
[2024-09-26 07:22] LABS: Glucose,Whole Blood 82 mg/dL (70-110)
[2024-09-26] MEDS ORDERED: ZINC OXIDE PASTE (Z-GUARD) 1 APPLIC TOPICAL PRN (08:07)
[2024-09-26 08:28] LABS: Magnesium 1.8 mg/dL (1.5-2.4)
[2024-09-26 08:47] LABS: BUN/Creat Ratio 7.53 Ratio (12.00-20.00); Carbon Dioxide 20.5 mmol/L (21.6-31.8); Chloride 103 mmol/L (96-109); Glucose 45 mg/dL (70-110); Potassium 3.3 mmol/L (3.5-5.5); Sodium 138 mmol/L (135-145)
[2024-09-26 09:22] LABS: Hepatitis B Surface Antigen Nonreactive (Nonreactive)
[2024-09-26 09:27] LABS: Hepatitis B Surface AB- Quant 31.3 mIU/mL
--- NOTE | 2024-09-26 10:14 | P.PN ---
Subjective Patient is seen in follow-up for chronic kidney disease stage V. Started on hemodialysis September 25, 2024 due to worsening renal function and oliguria. Being treated for upper extremity cellulitis post AV graft surgery. Urine output documented as 200 cc in the last 24 hours. Tolerating dialysis well. Vital signs are stable. General: No acute distress. HEENT: Head exam is unremarkable. LUNGS: No audible rhonchi or wheezes. HEART: Rate and Rhythm are regular. ABDOMEN: Nontender. EXTREMITITES: No edema. Objective - Vital Signs Vital signs: Vital Signs Temp 98.1 F 09/26/24 07:19 Pulse 77 09/26/24 07:19 Resp 16 09/26/24 07:19 BP 156/82 09/26/24 07:19 Pulse Ox 95 09/26/24 07:19 FiO2 Intake & Output 09/25/24 09/26/24 09/26/24 18:59 06:59 18:59 Intake Total 400 Output Total 200 1400 Balance -200 -1000 Intake: Hemodialysis 400 Output: Urine 200 Hemodialysis 900 Hemodialysis Net Amount 500 Other: Voiding Method Toilet # Voids 1 # Bowel Movements 1 2 - Labs CBC & Chem 7: 09/25/24 03:00 09/26/24 03:07 Labs: Abnormal Lab Results - Last 24 Hours (Table) 09/25/24 09/25/24 09/25/24 Range/Units 03:00 11:58 17:44 Potassium (3.5-5.5) mmol/L Carbon Dioxide (21.6-31.8) mmol/L Anion Gap (4.00-12.00) mmol/L BUN (9.0-27.0) mg/dL Creatinine (0.6-1.5) mg/dL Est GFR (CKD-EPI) (>=60) BUN/Creatinine Ratio (12.00-20.00) Ratio Glucose (70-110) mg/dL POC Glucose (mg/dL) 142 H 142 H (70-110) mg/dL Calcium (8.7-10.3) mg/dL Hep Bs Antibody A (Negative) 09/26/24 09/26/24 09/26/24 Range/Units 03:07 06:17 06:49 Potassium 3.3 L (3.5-5.5) mmol/L Carbon Dioxide 20.5 L (21.6-31.8) mmol/L Anion Gap 14.50 H (4.00-12.00) mmol/L BUN 61.0 H (9.0-27.0) mg/dL Creatinine 8.1 H (0.6-1.5) mg/dL Est GFR (CKD-EPI) 5 L (>=60) BUN/Creatinine Ratio 7.53 L (12.00-20.00) Ratio Glucose 45 A* (70-110) mg/dL POC Glucose (mg/dL) 43 L* 48 L* (70-110) mg/dL Calcium 7.0 L (8.7-10.3) mg/dL Hep Bs Antibody (Negative) Assessment and Plan Plan: Assessment: 1. 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 Started on hemodialysis September 25, 2024 via permacath. 2. Right upper extremity cellulitis status post loop AV graft placement. On IV antibiotics. ID following. 3. Anemia of chronic kidney disease. On Aranesp. 4. Diabetes mellitus. 5. Metabolic acidosis secondary to chronic kidney disease maintained on oral bicarb. Improved postdialysis. Plan: Currently seen while undergoing hemodialysis. Next treatment Tuesday. Avoid morphine due to depressed GFR. unit manager rn to set up outpatient hemodialysis. Replace potassium.
[2024-09-26 11:13] LABS: Glucose,Whole Blood 201 mg/dL (70-110)
[2024-09-26] MEDS: POTASSIUM CHLORIDE ER 20 MEQ TAB.ER PO STA (12:03)
[2024-09-26] MEDS: TORSEMIDE 20 MG TAB PO SCH (12:03)
[2024-09-26 16:05] LABS: Glucose,Whole Blood 183 mg/dL (70-110)
[2024-09-26 22:02] LABS: Glucose,Whole Blood 100 mg/dL (70-110)
--- NOTE | 2024-09-27 06:05 | P.PN ---
Subjective Progress Note Date: 09/26/24 This is a pleasant 59-year-old female who was recently admitted with right upper extremity cellulitis surrounding the AV graft which is improving. Nephrology and vascular surgery following and patient not currently receiving any dialysis and is maintained on oral Lasix. There is discussion of possibly initiating dialysis and will discuss further with nephrology. Recommended to continue monitoring Accu-Cheks AC and at bedtime and will adjust insulins accordingly as blood sugars have been elevated. Encouraged to increase activity as tolerated and may need PT/OT therapy evaluation. Patient is afebrile with no reports of chest pain or worsening shortness of breath patient has been tolerating diet 09/26/2024 Patient is seen in follow-up today currently undergoing hemodialysis on the right chest port wall catheter. Right arm fistula is maturing and per nephrology will continue with dialysis for now until cleared by vascular surgery to use the right arm and will continue with temporary cath of the chest wall. Case management following and will possibly need to arrange for outpatient dial ysis. Patient with generalized weakness recommend PT/OT therapy evaluation. Patient denies any chest pain or worsening shortness of breath. Patient tolerating diet and would recommend renal diet. Follow-up on repeat labs and monitor kidney functions closely. Review of systems: Constitutional: No reports of fatigue, fever, or chills Cardiovascular: No reports of chest pain or palpitations Respiratory: No reports of shortness of breath or cough GI: No reports of nausea, no reports of vomiting, reports loose stools : No reports of dysuria, was retaining and now with indwelling Panchal cath Neurovascular: reports of generalized weakness All medications have been reviewed PHYSICAL EXAMINATION: GENERAL: The patient is alert and oriented x 3, elderly appearing well developed, well nourished. HEENT: Pupils are round and equally reacting to light. EOMI. no scleral icterus. No conjunctival pallor. Normocephalic, atraumatic. No pharyngeal erythema. No thyromegaly. CARDIOVASCULAR: S1 and S2 muffled right chest wall temporary dialysis cath noted PULMONARY: diminished breath sounds bilaterally with no wheezing or rhonchi noted. ABDOMEN: soft. Nontender on exam. obese. non-distended, normoactive bowel sounds. No palpable organomegaly. MUSCULOSKELETAL: No joint swelling or deformity. EXTREMITIES: No cyanosis, clubbing, or pedal edema. NEUROLOGICAL: Gross neurological examination did not reveal any focal deficits. Diffuse weakness SKIN: No rashes. Assessment: Right upper extremity swelling status post recent AV graft Right upper extremity allergy contact dermatitis secondary to adhesive dressing End-stage renal disease, nephrology following and will be initiating h emodialysis Gastritis, improving Chronic obstructive pulmonary disease, not in exacerbation Diabetes mellitus, type II, uncontrolled with hyper and hypoglycemia Hypertension GI prophylaxis DVT prophylaxis Full code Plan: Recommend to continue with current medications and management with nephrology, vascular surgery, infectious disease following. Per patient patient has not received any hemodialysis and nephrology is starting hemodialysis and will be continuing to use the chest wall catheter on the right while allowing the fistula to heal, continue with compression stocking and will need clearance from vascular surgery to start using prior to removing the chest wall catheter. Vascular surgery following recommending outpatient follow-up. Infectious disease following and patient is maintained on daptomycin. Patient developed diarrhea and C. difficile pending Recommend PT/OT therapy evaluation will discuss with case management regarding discharge planning in the event patient needs ECF. Encouraged increase activity as tolerated and sitting more frequently in the chair, elevate lower extremities while at rest Due to multiple complex medical issues, overall prognosis is guarded The impression and plan of care has been dictated by Isabelle Becker, nurse practitioner as directed. Dr. Donte MD I have performed a history and examination and MDM of this patient, discussed the same with the dictator, and agree with the dictator's assessment and plan as written ,documented as a scribe. Based on total visit time, I have performed more than 50% of the visit. Any additional findings or plans will be noted. Objective - Vital Signs Vital signs: Vital Signs Temp 98.0 F 09/27/24 01:04 Pulse 83 09/27/24 01:04 Resp 15 09/27/24 01:04 BP 138/79 09/27/24 01:04 Pulse Ox 95 09/27/24 01:04 FiO2 Intake & Output 09/26/24 09/26/24 09/27/24 06:59 18:59 06:59 Intake Total 400 1400 Output Total 1400 1400 Balance -1000 0 Intake: Hemodialysis 400 1400 Output: Hemodialysis 900 400 Hemodialysis Net Amount 500 1000 Other: Voiding Method Toilet Toilet # Voids 1 # Bowel Movements 1 2 1 - Labs CBC & Chem 7: 09/25/24 03:00 09/26/24 03:07 Labs: Abnormal Lab Results - Last 24 Hours (Table) 09/25/24 09/26/24 09/26/24 Range/Units 03:00 03:07 06:17 Potassium 3.3 L (3.5-5.5) mmol/L Carbon Dioxide 20.5 L (21.6-31.8) mmol/L Anion Gap 14.50 H (4.00-12.00) mmol/L BUN 61.0 H (9.0-27.0) mg/dL Creatinine 8.1 H (0.6-1.5) mg/dL Est GFR (CKD-EPI) 5 L (>=60) BUN/Creatinine Ratio 7.53 L (12.00-20.00) Ratio Glucose 45 A* (70-110) mg/dL POC Glucose (mg/dL) 43 L* (70-110) mg/dL Calcium 7.0 L (8.7-10.3) mg/dL Hep Bs Antibody A (Negative) 09/26/24 09/26/24 09/26/24 Range/Units 06:49 11:12 16:03 Potassium (3.5-5.5) mmol/L Carbon Dioxide (21.6-31.8) mmol/L Anion Gap (4.00-12.00) mmol/L BUN (9.0-27.0) mg/dL Creatinine (0.6-1.5) mg/dL Est GFR (CKD-EPI) (>=60) BUN/Creatinine Ratio (12.00-20.00) Ratio Glucose (70-110) mg/dL POC Glucose (mg/dL) 48 L* 201 H 183 H (70-110) mg/dL Calcium (8.7-10.3) mg/dL Hep Bs Antibody (Negative) Microbiology - Last 24 Hours (Table) 09/21/24 09:17 Blood Culture - Final Blood
[2024-09-27 06:10] LABS: Glucose,Whole Blood 80 mg/dL (70-110)
[2024-09-27 10:27] LABS: Magnesium 1.9 mg/dL (1.5-2.4)
[2024-09-27 10:56] LABS: Basophils # (A) 0.03 X 10*3/uL (0.00-0.10); Basophils % (A) 0.3 %; Eosinophils # (A) 0.35 X 10*3/uL (0.04-0.35); Eosinophils % (A) 3.1 %; HCT 27.8 % (37.2-46.3); HGB 9.1 g/dL (12.0-15.0); Lymphocytes # (A) 1.86 X 10*3/uL (0.90-5.00); Lymphocytes % (A) 16.3 %; MCH 29.4 pg (27.0-32.0); MCHC 32.7 g/dL (32.0-37.0); MCV 89.7 FL (80.0-97.0); Mean Platelet Volume 11.4 FL (9.5-12.2); Monocytes # (A) 1.04 X 10*3/uL (0.20-1.00); Monocytes % (A) 9.1 %; NRBC Per 100 WBC 0 X 10*3/uL (0.00-0.01); Neutrophils # (A) 8.01 X 10*3/uL (1.80-7.70); Neutrophils % (A) 70.3 %; Platelet Count 171 X 10*3/uL (140-440); RDW 12.4 % (11.5-14.5); WBC 11.39 X 10*3/uL (4.50-10.00)
--- NOTE | 2024-09-27 11:02 | P.PN ---
Subjective Patient is seen in follow-up for chronic kidney disease stage V. Started on hemodialysis September 25, 2024 due to worsening renal function and oliguria. Being treated for upper extremity cellulitis post AV graft surgery. Making little urine. No active complaints. Vital signs are stable. General: No acute distress. HEENT: Head exam is unremarkable. LUNGS: No audible rhonchi or wheezes. HEART: Rate and Rhythm are regular. ABDOMEN: Nontender. EXTREMITITES: No edema. Objective - Vital Signs Vital signs: Vital Signs Temp 98.1 F 09/27/24 08:01 Pulse 83 09/27/24 08:01 Resp 18 09/27/24 08:01 BP 156/80 09/27/24 08:01 Pulse Ox 95 09/27/24 08:01 FiO2 Intake & Output 09/26/24 09/27/24 09/27/24 18:59 06:59 18:59 Intake Total 1400 Output Total 1400 Balance 0 Intake: Hemodialysis 1400 Output: Hemodialysis 400 Hemodialysis Net Amount 1000 Other: Voiding Method Toilet Toilet Toilet # Bowel Movements 2 1 - Labs CBC & Chem 7: 09/27/24 06:37 09/26/24 03:07 Labs: Abnormal Lab Results - Last 24 Hours (Table) 09/26/24 09/26/24 09/27/24 Range/Units 11:12 16:03 06:37 WBC 11.39 H (4.50-10.00) X 10*3/uL RBC 3.10 L (4.10-5.20) X 10*6/uL Hgb 9.1 L (12.0-15.0) g/dL Hct 27.8 L (37.2-46.3) % Immature Gran # 0.10 H (0.00-0.04) X 10*3/uL Neutrophils # 8.01 H (1.80-7.70) X 10*3/uL Monocytes # 1.04 H (0.20-1.00) X 10*3/uL POC Glucose (mg/dL) 201 H 183 H (70-110) mg/dL Microbiology - Last 24 Hours (Table) 09/21/24 09:17 Blood Culture - Final Blood Assessment and Plan Plan: Assessment: 1. 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 Started on hemodialysis September 25, 2024 via permacath. 2. Right upper extremity cellulitis status post loop AV graft placement. On IV antibiotics. ID following. 3. Anemia of chronic kidney disease. On Aranesp. 4. Diabetes mellitus. 5. Metabolic acidosis secondary to chronic kidney disease maintained on oral bi carb. Improved postdialysis. Plan: Hemodialysis tomorrow. Avoid morphine due to depressed GFR. Potential discharge after dialysis tomorrow. She will resume dialysis outpatient next week on a Tuesday schedule. Discussed with embedded case manager.
[2024-09-27 11:03] LABS: BUN/Creat Ratio 6.56 Ratio (12.00-20.00); Blood Urea Nitrogen 40.7 mg/dL (9.0-27.0); Calcium 7.5 mg/dL (8.7-10.3); Carbon Dioxide 22.9 mmol/L (21.6-31.8); Chloride 105 mmol/L (96-109); Glucose 84 mg/dL (70-110); Sodium 143 mmol/L (135-145)
[2024-09-27 11:34] VITALS: BMI 28.3
[2024-09-27 11:43] LABS: Glucose,Whole Blood 100 mg/dL (70-110)
[2024-09-27] MEDS: ONDANSETRON 4 MG/2 ML VIAL IVP PRN (16:35)
[2024-09-27 16:43] LABS: Glucose,Whole Blood 121 mg/dL (70-110)
[2024-09-27 19:48] LABS: Glucose,Whole Blood 102 mg/dL (70-110)
--- NOTE | 2024-09-27 22:39 | P.PN ---
Subjective Progress Note Date: 09/26/24 Principal diagnosis: Reason for follow-up with right upper extremity cellulitis Patient is a 59-year-old female with a past medical history significant for diabetes mellitus hypertension hyperlipidemia reflux atrial fibrillation end-stage renal disease and currently started on dialysis, patient did have right IJ tunneled catheter, patient did have right upper extremity loop forearm AV graft created on 09/13/2024, presented to hospital with a right upper extremity graft site swelling redness and drainage she was admitted for concern for possible cellulitis. On today's evaluation that is 09/26/2024,the patient denies any fever or any chills, patient is breathing comfortably on room air, the patient denies chest pain shortness of breath and no significant cough, patient denies abdominal pain, no nausea vomiting or diarrhea still complaining of pain to the right upper extremity. No CBC was done today her creatinine is 8.1 Objective - Vital Signs Vital signs: Vital Signs Temp 97.8 F 09/26/24 13:39 Pulse 84 09/26/24 13:39 Resp 16 09/26/24 13:39 BP 146/79 09/26/24 13:39 Pulse Ox 96 09/26/24 13:39 FiO2 Intake & Output 09/25/24 09/26/24 09/26/24 18:59 06:59 18:59 Intake Total 400 1400 Output Total 200 1400 1400 Balance -200 -1000 0 Intake: Hemodialysis 400 1400 Output: Urine 200 Hemodialysis 900 400 Hemodialysis Net Amount 500 1000 Other: Voiding Method Toilet # Voids 1 # Bowel Movements 1 2 - Exam GENERAL DESCRIPTION: Middle-age female lying in bed in no distress RESPIRATORY SYSTEM: Unlabored breathing , decreased breath sounds at bases HEART: S1 S2 regular rate and rhythm , ABDOMEN: Soft , no tenderness EXTREMITIES: Right upper extremity graft site did have erythema no significant drainage - Labs CBC & Chem 7: 09/27/24 06:37 09/27/24 06:37 Labs: Abnormal Lab Results - Last 24 Hours (Table) 09/25/24 09/25/24 09/26/24 Range/Units 03:00 17:44 03:07 Potassium 3.3 L (3.5-5.5) mmol/L Carbon Dioxide 20.5 L (21.6-31.8) mmol/L Anion Gap 14.50 H (4.00-12.00) mmol/L BUN 61.0 H (9.0-27.0) mg/dL Creatinine 8.1 H (0.6-1.5) mg/dL Est GFR (CKD-EPI) 5 L (>=60) BUN/Creatinine Ratio 7.53 L (12.00-20.00) Ratio Glucose 45 A* (70-110) mg/dL POC Glucose (mg/dL) 142 H (70-110) mg/dL Calcium 7.0 L (8.7-10.3) mg/dL Hep Bs Antibody A (Negative) 09/26/24 09/26/24 09/26/24 Range/Units 06:17 06:49 11:12 Potassium (3.5-5.5) mmol/L Carbon Dioxide (21.6-31.8) mmol/L Anion Gap (4.00-12.00) mmol/L BUN (9.0-27.0) mg/dL Creatinine (0.6-1.5) mg/dL Est GFR (CKD-EPI) (>=60) BUN/Creatinine Ratio (12.00-20.00) Ratio Glucose (70-110) mg/dL POC Glucose (mg/dL) 43 L* 48 L* 201 H (70-110) mg/dL Calcium (8.7-10.3) mg/dL Hep Bs Antibody (Negative) 09/26/24 Range/Units 16:03 Potassium (3.5-5.5) mmol/L Carbon Dioxide (21.6-31.8) mmol/L Anion Gap (4.00-12.00) mmol/L BUN (9.0-27.0) mg/dL Creatinine (0.6-1.5) mg/dL Est GFR (CKD-EPI) (>=60) BUN/Creatinine Ratio (12.00-20.00) Ratio Glucose (70-110) mg/dL POC Glucose (mg/dL) 183 H (70-110) mg/dL Calcium (8.7-10.3) mg/dL Hep Bs Antibody (Negative) Assessment and Plan (1) Right arm cellulitis Current Visit: Yes Status: Acute Code(s): L03.113 - CELLULITIS OF RIGHT UPPER LIMB SNOMED Code(s): 77166763843401442 (2) Pain and swelling of right upper extremity Current Visit: Yes Status: Acute Code(s): M79.601 - PAIN IN RIGHT ARM; M79.89 - OTHER SPECIFIED SOFT TISSUE DISORDERS SNOMED Code(s): 772338016 Plan: 1patient presented to hospital with right upper extremity pain swelling and redness in this patient who did have significant abnormality seen on the CT with recent right upper extremity AV loop graft placement for dialysis concerning for cellulitis and will need to cover for the gram-positive as well as gram-negative pathogen 2-patient is afebrile did have improvement in the cellulitis to the right upper extremity 3patient continue daptomycin patient did have improvement diarrhea after discontinuation of Zosyn Dictation was produced using [employer] dictation software. please excuse any grammatical, word or spelling errors. Time with Patient: Less than 30
--- NOTE | 2024-09-27 22:40 | P.PN ---
Subjective Progress Note Date: 09/27/24 Principal diagnosis: Reason for follow-up with right upper extremity cellulitis Patient is a 59-year-old female with a past medical history significant for diabetes mellitus hypertension hyperlipidemia reflux atrial fibrillation end-stage renal disease and currently started on dialysis, patient did have right IJ tunneled catheter, patient did have right upper extremity loop forearm AV graft created on 09/13/2024, presented to hospital with a right upper extremity graft site swelling redness and drainage she was admitted for concern for possible cellulitis. On today's evaluation that is 09/27/2024,the patient remains to be afebrile, patient is on room air not requiring supplemental oxygen and denies any shortness of breath no chest pain or cough.Patient denies having any nausea or vomiting, no abdominal pain and diarrhea has slowed down. The patient white count is 11.39 creatinine 6.2 blood culture has been negative Objective - Vital Signs Vital signs: Vital Signs Temp 98.1 F 09/27/24 08:01 Pulse 83 09/27/24 08:01 Resp 18 09/27/24 08:01 BP 156/80 09/27/24 08:01 Pulse Ox 95 09/27/24 08:01 FiO2 Intake & Output 09/26/24 09/27/24 09/27/24 18:59 06:59 18:59 Intake Total 1400 Output Total 1400 Balance 0 Weight 72.575 kg Intake: Hemodialysis 1400 Output: Hemodialysis 400 Hemodialysis Net Amount 1000 Other: Voiding Method Toilet Toilet Toilet # Bowel Movements 2 1 - Exam GENERAL DESCRIPTION: Middle-age female lying in bed in no distress RESPIRATORY SYSTEM: Unlabored breathing , decreased breath sounds at bases HEART: S1 S2 regular rate and rhythm , ABDOMEN: Soft , no tenderness EXTREMITIES: Right upper extremity graft site did have erythema no significant drainage - Labs CBC & Chem 7: 09/27/24 06:37 09/27/24 06:37 Labs: Abnormal Lab Results - Last 24 Hours (Table) 09/26/24 09/27/24 09/27/24 Range/Units 16:03 06:37 06:37 WBC 11.39 H (4.50-10.00) X 10*3/uL RBC 3.10 L (4.10-5.20) X 10*6/uL Hgb 9.1 L (12.0-15.0) g/dL Hct 27.8 L (37.2-46.3) % Immature Gran # 0.10 H (0.00-0.04) X 10*3/uL Neutrophils # 8.01 H (1.80-7.70) X 10*3/uL Monocytes # 1.04 H (0.20-1.00) X 10*3/uL Anion Gap 15.10 H (4.00-12.00) mmol/L BUN 40.7 H (9.0-27.0) mg/dL Creatinine 6.2 H (0.6-1.5) mg/dL Est GFR (CKD-EPI) 7 L (>=60) BUN/Creatinine Ratio 6.56 L (12.00-20.00) Ratio POC Glucose (mg/dL) 183 H (70-110) mg/dL Calcium 7.5 L (8.7-10.3) mg/dL Microbiology - Last 24 Hours (Table) 09/21/24 09:17 Blood Culture - Final Blood Assessment and Plan (1) Right arm cellulitis Current Visit: Yes Status: Acute Code(s): L03.113 - CELLULITIS OF RIGHT UPPER LIMB SNOMED Code(s): 51121278659604200 (2) Pain and swelling of right upper extremity Current Visit: Yes Status: Acute Code(s): M79.601 - PAIN IN RIGHT ARM; M79.89 - OTHER SPECIFIED SOFT TISSUE DISORDERS SNOMED Code(s): 514724688 Plan: 1patient presented to hospital with right upper extremity pain swelling and redness in this patient who did have significant abnormality seen on the CT with recent right upper extremity AV loop graft placement for dialysis concerning for cellulitis and will need to cover for the gram-positive as well as gram-negative pathogen 2-patient is afebrile did have improvement in the cellulitis to the right upper extremity 3patient blood culture have been negative however white count slightly elevated to monitor closely for now to continue with the daptomycin Dictation was produced using [employer] dictation software. please excuse any grammatical, word or spelling errors. Time with Patient: Less than 30
[2024-09-28 05:56] LABS: Glucose,Whole Blood 87 mg/dL (70-110)
[2024-09-28 08:07] VITALS: RESP 18
[2024-09-28 08:52] LABS: BUN/Creat Ratio 6.32 Ratio (12.00-20.00); Blood Urea Nitrogen 47.4 mg/dL (9.0-27.0); Calcium 7.8 mg/dL (8.7-10.3); Carbon Dioxide 21.8 mmol/L (21.6-31.8); Chloride 103 mmol/L (96-109); Glucose 72 mg/dL (70-110); Magnesium 2.1 mg/dL (1.5-2.4); Potassium 3.9 mmol/L (3.5-5.5); Sodium 139 mmol/L (135-145)
--- NOTE | 2024-09-28 09:40 | P.PN ---
Subjective Progress Note Date: 09/27/24 This is a pleasant 59-year-old female who was recently admitted with right upper extremity cellulitis surrounding the AV graft which is improving. Nephrology and vascular surgery following and patient not currently receiving any dialysis and is maintained on oral Lasix. There is discussion of possibly initiating dialysis and will discuss further with nephrology. Recommended to continue monitoring Accu-Cheks AC and at bedtime and will adjust insulins accordingly as blood sugars have been elevated. Encouraged to increase activity as tolerated and may need PT/OT therapy evaluation. Patient is afebrile with no reports of chest pain or worsening shortness of breath patient has been tolerating diet 09/26/2024 Patient is seen in follow-up today currently undergoing hemodialysis on the right chest port wall catheter. Right arm fistula is maturing and per nephrology will continue with dialysis for now until cleared by vascular surgery to use the right arm and will continue with temporary cath of the chest wall. Case management following and will possibly need to arrange for outpatient dial ysis. Patient with generalized weakness recommend PT/OT therapy evaluation. Patient denies any chest pain or worsening shortness of breath. Patient tolerating diet and would recommend renal diet. Follow-up on repeat labs and monitor kidney functions closely. 09/27/2024 Patient is seen in follow-up today continuing to undergo hemodialysis on the right chest port wall. Patient will be planned for outpatient dialysis on Tuesday//Tuesday and continue using this chest wall port until the fistula has been cleared by vascular surgery for use. Patient is afebrile with no reports of chest pain or shortness of breath. Patient is having some nausea intermittently and will use Zofran as needed. Patient to have PT/OT therapy evaluation as patient continues to be weak and would benefit from ECF. Patient is medically stable otherwise once outpatient dialysis arrangements have been made. WBC is 11.39 and hemoglobin is stable at 9.1, sodium 143 with a potassium of 4.0 which is improved, creatinine remains elevated although slightly improved at 6.2 and blood sugars are being on the lower level will continue to monitor closely. Magnesium is stable at 1.9. Will discuss further with infectious disease regarding discharge planning as cultures remain negative. Possible antibiotic recommendations with dialysis. Case management is following working on discharge planning. Review of systems: Constitutional: No reports of fatigue, fever, or chills Cardiovascular: No reports of chest pain or palpitations Respiratory: No reports of shortness of breath or cough GI: reports of intermittent nausea, no reports of vomiting : No reports of dysuria, was retaining and now with indwelling Panchal cath Neurovascular: reports of generalized weakness All medications have been reviewed PHYSICAL EXAMINATION: GENERAL: The patient is alert and oriented x 3, elderly appearing well deve loped, well nourished. HEENT: Pupils are round and equally reacting to light. EOMI. no scleral icterus. No conjunctival pallor. Normocephalic, atraumatic. No pharyngeal erythema. No thyromegaly. CARDIOVASCULAR: S1 and S2 muffled right chest wall temporary dialysis cath noted PULMONARY: diminished breath sounds bilaterally with no wheezing or rhonchi noted. ABDOMEN: soft. Nontender on exam. obese. non-distended, normoactive bowel sounds. No palpable organomegaly. MUSCULOSKELETAL: No joint swelling or deformity. EXTREMITIES: No cyanosis, clubbing, or pedal edema. NEUROLOGICAL: Gross neurological examination did not reveal any focal deficits. Diffuse weakness SKIN: No rashes. Assessment: Right upper extremity swelling status post recent AV graft Right upper extremity allergy contact dermatitis secondary to adhesive dressing End-stage renal disease, nephrology following and is started on hemodialysis Gastritis, improving Chronic obstructive pulmonary disease, not in exacerbation Diabetes mellitus, type II, uncontrolled with hyper and hypoglycemia Generalized weakness with gait dysfunction Hypertension GI prophylaxis DVT prophylaxis Full code Plan: Recommend to continue with current medications and management with nephrology, vascular surgery, infectious disease following. Per patient patient has not received any hemodialysis and nephrology is starting hemodialysis and will be continuing to use the chest wall catheter on the right while allowing the fistula to heal, continue with compression stocking and will need clearance from vascular surgery to start using prior to removing the chest wall catheter. Case management following arranging for outpatient hemodialysis. Plan will be for Tuesday//Tuesday Vascular surgery following recommending outpatient follow-up. Infectious disease following and patient is maintained on daptomycin. Patient developed diarrhea and C. difficile is negative. Will discuss further with infectious disease and hopeful for antibiotics on discharge via dialysis PT/OT therapy evaluation as patient is extremely weak and would benefit from ECF. Patient has been accepted by [facility] pending insurance authorization. Encouraged increase activity as tolerated and sitting more frequently in the chair, elevate lower extremities while at rest Due to multiple complex medical issues, overall prognosis is guarded Patient is medically stable and awaiting dialysis and ECF arrangements to be finalized for discharge The impression and plan of care has been dictated by Isabelle Becker, nurse practitioner as directed. Dr. Donte MD I have performed a history and examination and MDM of this patient, discussed the same with the dictator, and agree with the dictator's assessment and plan as written ,documented as a scribe. Based on total visit time, I have performed more than 50% of the visit. Any additional findings or plans will be noted. Objective - Vital Signs Vital signs: Vital Signs Temp 97.5 F L 09/27/24 13:50 Pulse 87 09/27/24 13:50 Resp 18 09/27/24 13:50 BP 134/75 09/27/24 13:50 Pulse Ox 96 09/27/24 13:50 FiO2 Intake & Output 09/27/24 09/27/24 09/28/24 06:59 18:59 06:59 Weight 72.575 kg Other: Voiding Method Toilet Toilet # Bowel Movements 1 - Labs CBC & Chem 7: 09/27/24 06:37 09/28/24 04:40 Labs: Abnormal Lab Results - Last 24 Hours (Table) 09/27/24 09/27/24 09/27/24 Range/Units 06:37 06:37 16:39 WBC 11.39 H (4.50-10.00) X 10*3/uL RBC 3.10 L (4.10-5.20) X 10*6/uL Hgb 9.1 L (12.0-15.0) g/dL Hct 27.8 L (37.2-46.3) % Immature Gran # 0.10 H (0.00-0.04) X 10*3/uL Neutrophils # 8.01 H (1.80-7.70) X 10*3/uL Monocytes # 1.04 H (0.20-1.00) X 10*3/uL Anion Gap 15.10 H (4.00-12.00) mmol/L BUN 40.7 H (9.0-27.0) mg/dL Creatinine 6.2 H (0.6-1.5) mg/dL Est GFR (CKD-EPI) 7 L (>=60) BUN/Creatinine Ratio 6.56 L (12.00-20.00) Ratio POC Glucose (mg/dL) 121 H (70-110) mg/dL Calcium 7.5 L (8.7-10.3) mg/dL Microbiology - Last 24 Hours (Table) 09/21/24 09:17 Blood Culture - Final Blood
--- NOTE | 2024-09-28 10:42 | P.PN ---
Subjective Patient is seen in follow-up for chronic kidney disease stage V. Started on hemodialysis September 25, 2024 due to worsening renal function and oliguria. Being treated for upper extremity cellulitis post AV graft surgery. Making little urine. No active complaints. Vital signs are stable. General: No acute distress. HEENT: Head exam is unremarkable. LUNGS: No audible rhonchi or wheezes. HEART: Rate and Rhythm are regular. ABDOMEN: Nontender. EXTREMITITES: No edema. Objective - Vital Signs Vital signs: Vital Signs Temp 97.8 F 09/28/24 07:22 Pulse 81 09/28/24 07:22 Resp 18 09/28/24 07:22 BP 159/75 09/28/24 07:22 Pulse Ox 91 L 09/28/24 07:22 FiO2 Intake & Output 09/27/24 09/28/24 09/28/24 18:59 06:59 18:59 Weight 72.575 kg Other: Voiding Method Toilet Toilet - Labs CBC & Chem 7: 09/27/24 06:37 09/28/24 04:40 Labs: Abnormal Lab Results - Last 24 Hours (Table) 09/27/24 09/27/24 09/27/24 Range/Units 06:37 06:37 16:39 WBC 11.39 H (4.50-10.00) X 10*3/uL RBC 3.10 L (4.10-5.20) X 10*6/uL Hgb 9.1 L (12.0-15.0) g/dL Hct 27.8 L (37.2-46.3) % Immature Gran # 0.10 H (0.00-0.04) X 10*3/uL Neutrophils # 8.01 H (1.80-7.70) X 10*3/uL Monocytes # 1.04 H (0.20-1.00) X 10*3/uL Anion Gap 15.10 H (4.00-12.00) mmol/L BUN 40.7 H (9.0-27.0) mg/dL Creatinine 6.2 H (0.6-1.5) mg/dL Est GFR (CKD-EPI) 7 L (>=60) BUN/Creatinine Ratio 6.56 L (12.00-20.00) Ratio POC Glucose (mg/dL) 121 H (70-110) mg/dL Calcium 7.5 L (8.7-10.3) mg/dL 09/28/24 Range/Units 04:40 WBC (4.50-10.00) X 10*3/uL RBC (4.10-5.20) X 10*6/uL Hgb (12.0-15.0) g/dL Hct (37.2-46.3) % Immature Gran # (0.00-0.04) X 10*3/uL Neutrophils # (1.80-7.70) X 10*3/uL Monocytes # (0.20-1.00) X 10*3/uL Anion Gap 14.20 H (4.00-12.00) mmol/L BUN 47.4 H (9.0-27.0) mg/dL Creatinine 7.5 H (0.6-1.5) mg/dL Est GFR (CKD-EPI) 6 L (>=60) BUN/Creatinine Ratio 6.32 L (12.00-20.00) Ratio POC Glucose (mg/dL) (70-110) mg/dL Calcium 7.8 L (8.7-10.3) mg/dL Assessment and Plan Plan: Assessment: 1. 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 Started on hemodialysis September 25, 2024. 2. Right upper extremity cellulitis status post loop AV graft placement. On IV antibiotics. ID following. 3. Anemia of chronic kidney disease. On Aranesp. 4. Diabetes mellitus. 5. Metabolic acidosis secondary to chronic kidney disease maintained on oral bicarb. Improved postdialysis. Plan: Currently seen while undergoing hemodialysis. Case discussed with vascular surgery. Cleared for AV graft to be used for hemodialysis. Seems to be working well. Permacath will be discontinued outpatient. Maintain Demadex. Potential discharge after dialysis today. She will resume dialysis outpatient next week on a Tuesday schedule. Discussed with showcase maker.
[2024-09-28 11:39] LABS: Glucose,Whole Blood 117 mg/dL (70-110)
[2024-09-28 13:35] VITALS: PULSE 82; TEMP 98.2
--- NOTE | 2024-09-28 15:10 | P.DS ---
Providers Date of admission: 09/21/24 12:35 Expected date of discharge: 09/28/24 Attending physician: Brandan Ybarra MD Consults: 09/21/24 12:11 Consult Physician Routine Consulting Provider: Maite Son Consult Reason/Comments: esrd Do you want consulting provider notified?: Yes 09/21/24 12:24 Consult Physician Routine Consulting Provider: Trina Singh Consult Reason/Comments: cellulitis Do you want consulting provider notified?: Yes Primary care physician: Vernon Loza MD Hospital Course: Final diagnosis Right upper extremity swelling status post recent AV graft Right upper extremity allergy contact dermatitis secondary to adhesive dressing End-stage renal disease, nephrology following and is started on hemodialysis Gastritis, improving Chronic obstructive pulmonary disease, not in exacerbation Diabetes mellitus, type II, uncontrolled with hyper and hypoglycemia Generalized weakness with gait dysfunction Hypertension GI prophylaxis DVT prophylaxis Full code Discharge disposition Patient is being discharged in a stable condition with guarded prognosis to [facility]. Patient will follow-up with Dr. Loza in the outpatient setting upon discharge. Patient is to continue with hemodialysis and close outpatient follow-up with vascular surgery along with nephrology as scheduled. Patient to resume dialysis on Tuesday//Tuesday. Total time taken is greater than 35 minutes. Hospital course This is a 59-year-old female who was recently admitted with concerns of right upper extremity cellulitis surrounding the AV graft that was recently placed. Vascular surgery and nephrology following and patient having worsening kidney functions requiring initiation of hemodialysis. Patient does have a temporary right chest wall catheter that is functioning and right sided fistula is healing and awaiting clearance from vascular surgery to start using. Patient with significant weakness as well evaluated by PT/OT therapy recommending rehab and patient is agreeable. Patient has been accepted at [facility] and insurance authorization has been obtained. Patient to continue on oral doxycycline twice daily for the next 1 week per ID recommendations. Please refer to other consultation notes for further HPI. Patient is a diabetic and would recommend using sliding scale with Accu-Cheks AC and at bedtime as patient is currently on Premeal insulin along with long-acting once daily. Adjustments adjust insulins accordingly. Currently no reports of chest pain, shortness of breath, or palpitations. Patient is afebrile. No reports of nausea or vomiting and patient is tolerating diet. Patient will be going to [facility] today. Physical exam: Gen: This is a 59-year-old female who is awake, alert and oriented x 3, well-developed, elderly appearing HEENT: Head is atraumatic, normocephalic. Pupils equal, round. Sclerae is anicteric. NECK: Supple. No JVD. No lymphadenopathy. No thyromegaly. LUNGS: Diminished breath sounds bilaterally otherwise clear to auscultation. No wheezes or rhonchi. No intercostal retractions. Right chest wall dialysis catheter patent HEART: S1, S2 are muffled regular rate and rhythm. No murmur. ABDOMEN: Soft. Obese. Bowel sounds are present. No masses. No tenderness. EXTREMITIES: No pedal edema. No calf tenderness. NEUROLOGICAL: Patient is awake, alert and oriented x3. Cranial nerves 2 through 12 are grossly intact. Diffusely weak Please refer to medication reconciliation sheet for a list of medications. The impression and plan of care has been dictated by Isabelle Becker, Nurse Practitioner as directed. Dr. Ernesto MD I have performed a history and examination and MDM of this patient, discussed the same with the dictator, and agree with the dictator's assessment and plan as written ,documented as a scribe. Based on total visit time, I have performed more than 50% of the visit. Patient Condition at Discharge: Stable Plan - Discharge Summary New Discharge Prescriptions: New Darbepoetin Adalid [Aranesp] 40 mcg SQ Q7D each Torsemide [Demadex] 40 mg PO DAILY tab Acetaminophen Tab [Tylenol] 650 mg PO Q6HR PRN tab PRN Reason: Mild Pain Or Fever > 100.5 Doxycycline [Vibramycin] 100 mg PO BID 7 Days #14 capsule hydrALAZINE HCL [Apresoline] 50 mg PO Q6HR PRN tab PRN Reason: Blood Pressure - High Oxybutynin Xl [Ditropan XL] 5 mg PO DAILY tab Atorvastatin [Lipitor] 10 mg PO DAILY tab HYDROcodone/APAP 5-325MG [[place] 5-325] 1 each PO Q8H PRN #4 tab PRN Reason: Moderate Pain (Scale 4 To 6) Ondansetron [Zofran] 4 mg PO Q8HR PRN #5 tab PRN Reason: Nausea Continue glipiZIDE 5 mg PO BID Sodium Bicarbonate Tab 650 mg PO BID carvediloL [Coreg] 25 mg PO BID Insulin Aspart [NovoLOG Flexpen] 10 units SQ AC-TID PRN PRN Reason: blood sugar >150 Ergocalciferol [Vitamin D2 (1250 Mcg = 73605 Iu)] 1,250 mcg PO MO Ibandronate Sodium [Boniva] 150 mg PO QMONTHLY Changed Insulin Glargine,Hum.rec.anlog [Lantus Solostar Pen] 20 units SQ HS #0 Discontinued Mirabegron [Myrbetriq] 25 mg PO DAILY Rosuvastatin Calcium 5 mg PO DAILY Discharge Medication List Insulin Aspart [NovoLOG Flexpen] 10 units SQ AC-TID PRN 11/27/22 [History] glipiZIDE 5 mg PO BID 11/27/22 [History] Sodium Bicarbonate Tab 650 mg PO BID 08/21/24 [History] Ergocalciferol [Vitamin D2 (1250 Mcg = 43542 Iu)] 1,250 mcg PO MO 09/11/24 [History] Ibandronate Sodium [Boniva] 150 mg PO QMONTHLY 09/21/24 [History] carvediloL [Coreg] 25 mg PO BID 09/21/24 [History] Acetaminophen Tab [Tylenol] 650 mg PO Q6HR PRN tab 09/28/24 [Rx] Atorvastatin [Lipitor] 10 mg PO DAILY tab 09/28/24 [Rx] Darbepoetin Adalid [Aranesp] 40 mcg SQ Q7D each 09/28/24 [Rx] Doxycycline [Vibramycin] 100 mg PO BID 7 Days #14 capsule 09/28/24 [Rx] HYDROcodone/APAP 5-325MG [[place] 5-325] 1 each PO Q8H PRN #4 tab 09/28/24 [Rx] Insulin Glargine,Hum.rec.anlog [Lantus Solostar Pen] 20 units SQ HS #0 09/28/24 [Rx] Ondansetron [Zofran] 4 mg PO Q8HR PRN #5 tab 09/28/24 [Rx] Oxybutynin Xl [Ditropan XL] 5 mg PO DAILY tab 09/28/24 [Rx] Torsemide [Demadex] 40 mg PO DAILY tab 09/28/24 [Rx] hydrALAZINE HCL [Apresoline] 50 mg PO Q6HR PRN tab 09/28/24 [Rx] Follow up Appointment(s)/Referral(s): [facility] Lori DIAZ [NON-STAFF] - 10/02/24 10:50 am (Please arrive 30 minutes early to first appointment to complete paperwork.) [facility] [NON-STAFF] - As Needed Vernon Loza MD [Primary Care Provider] [facility] - As Needed King Palmer DO [STAFF PHYSICIAN] - 1 Week Activity/Diet/Wound Care/Special Instructions: Patient is going to [facility] as tolerated Continue on hemodialysis with first session starting on Tuesday Continue with antibiotics in the form of doxycycline 100 mg twice daily for 1 week per ID recommendations Patient is to follow-up with nephrology outpatient Follow-up with vascular surgery outpatient Continue with the arm compression stocking on the right upper extremity and elevate Repeat labs of CBC, C MP, magnesium in 2 to 3 days Continue renal diabetic diet Continue monitoring Accu-Cheks AC and at bedtime and would recommend using sliding scale along with long-acting NovoLog sliding scale 0-150 equals 0 units 151-200 equals 2 units 201-250 equals 4 units 251-300 equals 6 units 301-350 equals 8 units 351-400 equals 10 units Please notify provider if blood sugar is 400 or above Discharge Disposition: TRANSFER TO SNF/ECF
--- NOTE | 2024-09-28 15:44 | P.PN ---
Subjective Progress Note Date: 09/28/24 Principal diagnosis: Reason for follow-up with right upper extremity cellulitis Patient is a 59-year-old female with a past medical history significant for diabetes mellitus hypertension hyperlipidemia reflux atrial fibrillation end-stage renal disease and currently started on dialysis, patient did have right IJ tunneled catheter, patient did have right upper extremity loop forearm AV graft created on 09/13/2024, presented to hospital with a right upper extremity graft site swelling redness and drainage she was admitted for concern for possible cellulitis. On today's evaluation that is 09/28/2024, the patient continues to be afebrile, the patient is on room air and breathing comfortably, the Pt denies having any chest pain or cough, the patient denies having any abdominal pain no vomiting and mention resolution of her diarrhea pain to the right upper extremity has decreased. Patient did have a creatinine of 7.5 blood culture negative Objective - Vital Signs Vital signs: Vital Signs Temp 97.8 F 09/28/24 07:22 Pulse 81 09/28/24 10:15 Resp 18 09/28/24 10:15 BP 159/75 09/28/24 07:22 Pulse Ox 91 L 09/28/24 07:22 FiO2 Intake & Output 09/27/24 09/28/24 09/28/24 18:59 06:59 18:59 Weight 72.575 kg Other: Voiding Method Toilet Toilet Toilet - Exam GENERAL DESCRIPTION: Middle-age female lying in bed in no distress RESPIRATORY SYSTEM: Unlabored breathing , decreased breath sounds at bases HEART: S1 S2 regular rate and rhythm , ABDOMEN: Soft , no tenderness EXTREMITIES: Right upper extremity graft site did have erythema no significant drainage - Labs CBC & Chem 7: 09/27/24 06:37 09/28/24 04:40 Labs: Abnormal Lab Results - Last 24 Hours (Table) 09/27/24 09/28/24 09/28/24 Range/Units 16:39 04:40 11:31 Anion Gap 14.20 H (4.00-12.00) mmol/L BUN 47.4 H (9.0-27.0) mg/dL Creatinine 7.5 H (0.6-1.5) mg/dL Est GFR (CKD-EPI) 6 L (>=60) BUN/Creatinine Ratio 6.32 L (12.00-20.00) Ratio POC Glucose (mg/dL) 121 H 117 H (70-110) mg/dL Calcium 7.8 L (8.7-10.3) mg/dL Assessment and Plan (1) Right arm cellulitis Current Visit: Yes Status: Acute Code(s): L03.113 - CELLULITIS OF RIGHT UPPER LIMB SNOMED Code(s): 91103272240603359 (2) Pain and swelling of right upper extremity Current Visit: Yes Status: Acute Code(s): M79.601 - PAIN IN RIGHT ARM; M79.89 - OTHER SPECIFIED SOFT TISSUE DISORDERS SNOMED Code(s): 444450561 Plan: 1patient presented to hospital with right upper extremity pain swelling and redness in this patient who did have significant abnormality seen on the CT with recent right upper extremity AV loop graft placement for dialysis concerning for cellulitis and will need to cover for the gram-positive as well as gram-negative pathogen 2-patient is afebrile did have improvement in the cellulitis to the right upper extremity 3patient blood culture have been negative, patient has received adequate IV daptomycin while inpatient recommend to finish therapy with oral doxycycline 100 twice daily for 7 days on discharge this was discussed with SOFTWARE WRITER for admitting team Dictation was produced using [employer] dictation software. please excuse any grammatical, word or spelling errors.
[2024-09-28 16:16] VITALS: BP 166/76
== END 2024-09-28 16:53 | DRG 606 ==
LOC: EC 08:25 → 4SSUR 12:35 → 5NMEDONC 14:52 → 4SSUR 21:19
PROVIDERS: ADMIT Internal Medicine; ATTEND Internal Medicine
PROC: 5A1D70Z Performance of Urinary Filtration, Intermittent, Less than 6 Hours Per Day (ICD-10-PCS; principal; 2024-09-25)
DX: L23.1 Allergic contact dermatitis due to adhesives (principal); N18.6 End stage renal disease; I12.0 Hypertensive chronic kidney disease with stage 5 chronic kidney disease or end stage renal disease; E87.20 Acidosis, unspecified; D63.1 Anemia in chronic kidney disease; Z99.2 Dependence on renal dialysis; E11.22 Type 2 diabetes mellitus with diabetic chronic kidney disease; J44.89 Other specified chronic obstructive pulmonary disease; E11.65 Type 2 diabetes mellitus with hyperglycemia; I48.0 Paroxysmal atrial fibrillation; Z79.4 Long term (current) use of insulin; K29.70 Gastritis, unspecified, without bleeding; E78.5 Hyperlipidemia, unspecified; H91.93 Unspecified hearing loss, bilateral; T38.3X6A Underdosing of insulin and oral hypoglycemic [antidiabetic] drugs, initial encounter; Z91.128 Patient's intentional underdosing of medication regimen for other reason; Z87.891 Personal history of nicotine dependence; Z79.84 Long term (current) use of oral hypoglycemic drugs; Z79.899 Other long term (current) drug therapy; Z91.040 Latex allergy status
CPT/HCPCS: 36415; 80048; 80053; 81001; 82550; 82552; 83605; 83735; 84100; 85025; 85652; 86140; 86706; 87040; 87340; 90935; 96365; 96366; 96367; 96375; 96376; 99285